=== PATIENT | male | born 1945 | race Caucasian/White ===

== ENCOUNTER 2022-06-26 06:23 | Day surgery (SDC) | payer OTHER, SELFPAY ==
[2022-06-26 06:42] VITALS: BP 123/79; PULSE 66; RESP 16; TEMP 36.2
[2022-06-26 06:43] VITALS: BMI 24.3
[2022-06-26 06:44] VITALS: BP 123/79; PULSE 66; RESP 16; TEMP 36.2; O2SAT 98
[2022-06-26] MEDS: ETHYL CHLORIDE 1 APPLICATION 1 APPLIC TOPICAL (07:00)
[2022-06-26] MEDS: BUPIVACAINE 0.5% 30 ML INJECTION (07:00)
--- NOTE | 2022-06-26 07:09 | SUR.PREOP ---
SAME DAY SURGERY LOCAL INJECTION SITE VERIFICATION WAS PERFORMED BY SURGEON/PA AND PATIENT PRIOR TO LOCAL ANESTHETIC BEING INJECTED TO OPERATIVE SITE.
[2022-06-26 07:24] VITALS: BP 132/67; PULSE 63; O2SAT 99
[2022-06-26 07:30] VITALS: BP 130/74; PULSE 67; RESP 16; O2SAT 99
[2022-06-26] MEDS: NEOMYCIN/BACITRACIN/POLYMYXIN B 1 APPLIC TOPICAL (07:33)
[2022-06-26 07:35] VITALS: BP 127/75; PULSE 66; RESP 14; O2SAT 99
--- NOTE | 2022-06-26 07:35 | P.ORPRC_ITS ---
Procedure Note Date of procedure: 06/26/22 Procedure: PREOPERATIVE DIAGNOSIS: 1. Left long finger flexor tenosynovitis - trigger finger POSTOPERATIVE DIAGNOSIS: 1. Left long flexor tenosynovitis - trigger finger PROCEDURE: 1. Left long flexor tendon sheath open release (A1 nato) SURGEON: Mickey Kang MD. BRAZING MACHINE SETTER: Fabiola Carpio Pac ANESTHESIA: Local anesthetic 4ml via 50:50 mixture of 1% Lidocaine with epi and 0.5% marcaine plain EBL: 2ml IMPLANTS: None TOURNIQUET: None COMPLICATIONS: None evident INDICATIONS: The patient is a pleasant 76-year-old male who has experienced left long finger catching/triggering for number of months. It has progressively gotten worse. Given the failure of nonoperative management, and how this affects daily life, surgery was recommended. DESCRIPTION OF PROCEDURE: Following a thorough discussion of risks, benefits, and alternatives consent was obtained and the operative digit(s) was marked. The patient was brought to the operating room and placed supine on the operating table. Local anesthesia induction was undertaken in preop holding. No antibiotics were administered as this was planned to be a local case only. Proper time-out was performed identifying proper patient, site, and procedure. The operative extremity was prepped and draped in the appropriate sterile fashion using ChloraPrep. A incision was made on the palmar surface of the hand overlying the MCP joint region of the appropriate digit(s) respecting the palmar creases being cautious not to cross these perpendicularly. Sharp incision through the skin, and blunt dissection through subcutaneous tissue allowing protection of crossing neurologic structures. The A1 nato was visualized directly. It was incised sharply with a 15 blade. It was released completely from its distal to proximal extent under direct visualization. The tendon was inspected and found to be mildly striated consistent with some friction. Otherwise, it was intact. The tendon was removed out of the wound, and further inspected. The patient was asked to manually flex and extend the digits and showed no further catching. The catching which was visualized after tourniquet inflation, was no longer evident with reproduction of a manual fist and relaxation. Closure was performed with 4-O nylon in interrupted fashion. Soft dressings were applied, and the patient was transferred to the recovery room in stable condition. PLAN: 1. Encourage elevation of the operative extremity. 2. Range of motion and icing of the fingers and hand/wrist as tolerated/needed. 3. Ibuprofen/acetaminophen and/or Percocet as needed for pain control. 4. Follow up with PA visit in 12-16 days for wound check and suture removal.
[2022-06-26 07:41] VITALS: BP 130/83; PULSE 65; RESP 16; TEMP 36.3; O2SAT 97
== END 2022-06-26 07:52 | disposition home or self-care (01) ==
PROVIDERS: PCP Family Medicine; Visit Provider Orthopaedic Surgery Sports Medicine
PROC: (CPT 26055; principal; 2022-06-26 07:30)
DX: M65.332 Trigger finger, left middle finger (principal); M65.842 Other synovitis and tenosynovitis, left hand
CPT/HCPCS: 26055; J3490

== ENCOUNTER 2023-07-18 09:45 | Outpatient (RCR) | payer OTHER, SELFPAY ==
--- NOTE | 2023-05-25 16:10 | PT.OPEX ---
[facility] PT [facility] Outpatient Eval Start: 05/25/23 14:03 Freq: Status: Active Protocol: Document 05/25/23 15:42 JUSTIN (Rec: 05/25/23 16:04 JUSTIN [id number]) E-signed By Daniela Monterroso PT Physical Therapy Outpatient Evaluation Insurance Information Recert Due Date 08/22/23 Insurance Name [employer],Other; See Comments Insurance Information/Comments [employer] Medical Diagnosis UNSTEADY GAIT Referring MD DR. WHITMAN Subjective Subjective PATIENT REPORTS UNSTEADINESS ESPECIALLY WHEN BENDING FWD TO CLEAN THE LITTER BOX. HE STATES, I FEEL LIKE I'M JUST GOING TO KEEP ON GOING WHEN IM DOWN THERE FOR A BIT. HE REPORTS FALLING ROUGHLY 10 DAYS AGO WHEN STEPPING BACK AND FALLING BACKWARD. Pain Comments Date of Last Physician Visit 05/21/23 Preferred Name RENU Objective Other/Pertinent Objective BLE MMT: 5/5 BLE ROM: WNL TUSEC 30 SEC STS: 8 MARQUES/56 This score is associated with almost 100% fall risk while the patient at the moment may be requiring assistance in performing certain activities of daily living such as walking. SLS: R 3SEC, L 5 SEC Assessment Assessment/Impression PATIENT IS A 77 YO REFERRED TO PHYSICAL THERAPY BY DR. WHITMAN TO EVAL AND TX UNSTEADINESS OF GAIT; PMHX INCLUDES BUT NOT LIMITED TO B KNEE ARTHROSCOPE (), LBP, H/O LEFT SHOULDER PAIN, DEPRESSION, OCD, LEFT FOOT PAIN, LEFT WRIST PAIN, AND H/O MULTIPLE FALLS; HE DEMONSTRATES INCREASED UNSTEADINESS WHEN CHANGE DIRECTIONS, HEAD MVMTS, WALKING BKWDS, AND BENDING FWD TOWARD THE GROUND. HIS FUNCTIONAL SCORES INDICATE AN IMMINENT RISK FOR FALLS AND WOULD BENEFIT FROM SKILLED PHYSICAL THERAPY FOCUSSED ON BOTH SOMATOSENSORY AND VESTIBULAR BALANCE SYSTEMS. PATIENT PROVIDED AN INITIAL HEP THAT INCLUDES VARIOUS GAZE STABILIZATION CHALLENGES (1) VOR 1 NO, (2) HORIZONTAL CANCELATION, (3) [place] CANCELATION. HE PERFORMED EA WITH ADJUSTMENT MADE D/T HIS CURRENT CAPABILITIES. HE IS INSTRUCTED TO PERFORM DAILY AND WILL PROGRESS NEXT VISIT. PATIENT VERBALIZED UNDERSTANDING OF ALL SKILLED INSTRUCTION AND IN AGREEMENT WITH POC AND FREQ. Primary Functional Limitations BALANCE GAIT ON UNEVEN SURFACES CHANGE IN DIRECTION Plan of Care Rehabilitation Potential Good Physical Therapy Goals 1. IMPROVE CORE/HIP/GLUT STRENGTH AND TRUNK STABILITY OVER THE NEXT 6-8 WEEKS FOR IMPROVED FUNCTIONAL MOBILITY, BALANCE, AND GAIT TO DECREASE RISK FOR FALLS. 2. IMPROVE MARQUES SCORE FROM 33/ 56 TO 45/56 AND THE 30 SEC STS FROM 8 TO 12 OVER THE NEXT 6- 8 WEEKS FOR IMPROVED SAFETY WITH DAILY ACTIVITIES AND DECREASED RISK OF FALLS. 3. 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 4. PATIENT WILL BE INDEPENDENT WITH HER HEP WITH IN 8-12 WEEKS FOR PROGRESSION TOWARD THE ABOVEMENTIONED GOALS, CONTINUED SELF IMPROVEMENT WITH STRENGTH, COORDINATION, GAIT, AND SAFETY AWARENESS. Coordination/Communication With Referral Source Treatment Plan/Direct Interventions Gait Training,Neuromuscular Re -ed,Therapeutic Activities, Therapeutic Exercises Frequency/Duration 1VISIT/WK FOR 8 -12 WEEKS Patient Will Be Discharged From Therapy Completion of LTG(s), Independently Progressing Evaluation Billing Complexity Moderate Certification Information Initial Certification Date 05/25/23 Ending Certification Date 08/22/23 Provider Signature Shows Agreement With POC & Medical Necessity Physician Signature & Date Requested Please Sign/Date Here Physician Comment/Change : Physician NPI Number #
== END 2023-08-09 16:39 | disposition home or self-care (01) ==
PROVIDERS: PCP Family Medicine; Visit Provider Family Medicine
DX: R26.9 Unspecified abnormalities of gait and mobility (principal); Z51.89 Encounter for other specified aftercare
CPT/HCPCS: 97112; 97162; 97530

== ENCOUNTER 2024-01-13 16:11 | Outpatient (CLI) | payer OTHER, SELFPAY ==
--- OUTSIDE RECORDS SUMMARY | 2024-01-18 01:23 | XMS_ITS | Continuity of Care Document ---
Author Organization [facility], [facility] Address [address] 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 Name Role Phone DOMINICK WHITMAN Primary Care [...] Details Recorded Time 4 Bladder Scan completed [facility] 01/08/2024 12:21:45 4 [place] - UroCuff completed [facility] 01/08/2024 12:23:07 4 Bladder Scan completed Rm Mas MD [address] [place] [address],[address], [address], [facility] 01/02/2024 12:04:36 4 Blood Draw/ORACLE ARCHITECT/PSA RESULTS completed Rm Mas MD [address] [place] [address],[facility] [address], [address], [facility] 01/02/2024 12:04:41 4 ORACLE ARCHITECT/blood draw completed Rm Mas MD [address] [place] [address],[address], [address], [facility] 06/20/2023 10:46:28 4 Bladder Scan completed Rm Mas MD [address] [place] [address],[address], [place], [address], [facility] 06/20/2023 10:50:58 3 Bladder Scan completed [facility] 07/10/2022 11:35:14 2 Bladder Scan completed [facility] 03/20/2022 10:16:14 2 ORACLE ARCHITECT/blood draw completed Rm Mas MD [address] [place] [address],[address], [place], [address], [facility] 12/19/2021 16:59:44 2 Bladder Scan completed Rm Mas MD [address] [place] [address],[address] [place] [address], [phone], [facility] 12/19/2021 16:59:39 7 Colonoscopy completed Rm Mas MD [address] [place] [address],[address] [place] [address], [phone], [facility] 12/19/2021 16:58:49 procedure on nose completed Rm Mas MD [address] [place] [address],[address], [place], [address], [facility] 12/19/2021 16:58:21 Hernia Repair completed Rm Mas MD [address] [place] [address],[address], [place], [address], [facility] 12/19/2021 16:58:30 Imaging Results None recorded. Procedure Notes None recorded. Medical Equipment None Reported. Allergies Allergen ID Allergen Name Allergen Category Reaction Reaction Severity Criticality Documentation Date Start Date Code Code System Note Provider Name and Address Organization Details Recorded Time [id number] Substance with sulfonami de structure and antibacte rial mechanism of action (substanc e) medicatio n Not available Not available Not available 12/19/2021 85274 8003 SNOMED Rm Mas MD [address] [place] [address],[address] [place] [address], [phone], [facility] 16:55:44 [id number] amoxicill in medicatio n Not available Not available Not available 12/19/2021 723 RxNorm Rm Mas MD [address] [place] [address],[address] [place] [address], [place], [address], [facility] 2 16:55:49 856790 erythromy vanda medicatio n Not available Not available Not available 12/19/2021 4053 RxNorm Rm Mas MD [address] [place] [address],[facility] [address], [place], [address], [facility] 2 16:55:54 846215 house dust allergeni c extract environme nt,medica tion Not available Not available Not available 12/19/2021 26115 9 RxNorm Rm Mas MD [address] [place] [address] E [facility], [place], [address], [facility] 2 16:56:12 590113 house dust mite environme nt Not available Not available Not available 12/19/2021 Rm Mas MD [address] [place] [address] E [facility], [place], [address], [facility] 2 16:56:17 967044 Flomax medicatio n Not available Not available Not available 12/19/2021 86563 3 RxNorm Rm Mas MD [address] [place] [address] [place] [address], [address], [facility] 2 16:56:23 069359 peanut allergeni c extract food,medi cation Not available Not available Not available 12/19/2021 56613 8 RxNorm Rm Mas MD [address] [place] [address] [place] [address], [address], [facility] 2 16:56:31 Medications Name Sig [...] Smoking Status Former Smoker Rm Mas MD [address] [facility],[address], [place], [address], [facility] 12/19/2021 16:58:04 What Is Your [...] adjuvanted, trivalent, PF 04/25/[address] [facility] 04/04/2023 08:55:35 Influenza, adjuvanted, trivalent, PF 01/04/[address] [facility] 04/04/2023 08:55:35 zoster recombinant 12/19/[address] [facility] 04/04/2023 08:55:35 zoster recombinant 03/11/2020 completed Kortney [facility] lar null, [facility] 04/04/2023 08:55:35 Influenza, adjuvanted, quadrivalent, PF 02/05/2020 completed Kortney Allar null, [facility] 04/04/2023 08:55:35 Influenza, adjuvanted, quadrivalent, PF 03/15/2021 completed Kortney Allar null, [facility] 04/04/2023 08:55:35 COVID-19, mRNA, LNP-S, PF, 100 mcg/0.5mL dose or 50 mcg/0.25mL dose 11/29/2021 completed Kortney Allar null, [facility] 04/04/2023 08:55:35 COVID-19, mRNA, LNP-S, PF, 30 mcg/0.3 mL dose 05/18/2020 completed Kortney Allar null, [facility] 04/04/2023 08:55:35 COVID-19, mRNA, LNP-S, PF, 30 mcg/0.3 mL dose 06/08/2020 completed Kortney Allar null, [facility] 04/04/2023 08:55:35 COVID-19, mRNA, LNP-S, PF, 30 mcg/0.3 mL dose 03/23/2021 completed Kortney Allar null, [facility] 04/04/2023 08:55:35 Tdap 01/11/2011 completed Kortney Allar null, [facility] 04/04/2023 08:55:35 Tdap 03/15/2021 completed Kortney Allar null, [facility] 04/04/2023 08:55:35 zoster live 03/03/2015 completed Kortney Allar null, [facility] 04/04/2023 08:55:35 Influenza, high-dose, trivalent, PF 12/24/2013 completed Kortney Allar null, [facility] 04/04/2023 08:55:35 Influenza, high-dose, trivalent, PF 01/12/2015 completed Kortney Allar null, [facility] 04/04/2023 08:55:35 Influenza, high-dose, trivalent, PF 01/18/2016 completed Kortney Allar null, [facility] 04/04/2023 08:55:35 Influenza, split virus, trivalent, preservative 01/07/2013 completed Kortney Allar null, [facility] 04/04/2023 08:55:35 Influenza, split virus, trivalent, preservative 01/11/2011 completed Kortney Allar null, [facility] 04/04/2023 08:55:35 Influenza, split virus, trivalent, preservative 01/12/2009 completed Kortney Allar null, [facility] 04/04/2023 08:55:35 Influenza, split virus, trivalent, preservative 03/23/2012 completed Kortney Allar null, [facility] 04/04/2023 08:55:35 Td (adult), 5 Lf tetanus toxoid, preservative free, adsorbed 02/02/2006 completed Kortney Allar null, [facility] 04/04/2023 08:55:35 Influenza, split virus, quadrivalent, PF 02/18/2019 completed Kortney Allar null, [facility] 04/04/2023 08:55:35 Hep A-Hep B 10/03/2018 completed Kortney Allar null, [facility] 04/04/2023 08:55:35 Hep A-Hep B 03/03/2021 completed Kortney Allar null, [facility] 04/04/2023 08:55:35 Hep A-Hep B 04/02/2020 completed Kortney Allar null, [facility] 04/04/2023 08:55:35 Influenza, adjuvanted, quadrivalent, PF 03/13/2022 completed Kortney Allar null, [facility] 04/04/2023 08:55:42 Pneumococcal conjugate PCV20, polysaccharide NEC407 conjugate, adjuvant, PF 05/18/2022 completed Kortney Allar null, [facility] 04/04/2023 08:55:51 Influenza, high-dose, quadrivalent, PF 03/22/2023 completed Rm Mas MD [address] [place] [address],[address], [address], [facility] 01/02/2024 12:02:22 RSV, bivalent, protein subunit RSVpreF, diluent reconstituted, 0.5 mL, PF 05/23/2023 completed Rm Mas MD [address] [place] [address],[place] [address], [place], [address], [facility] 01/02/2024 12:02:22 Pneumococcal conjugate PCV 13 07/23/2014 completed Rm Mas MD [address] [place] [address],[address], [address], [facility] 12/19/2021 16:55:31 pneumococcal polysaccharide PPV23 12/17/2012 completed Rm Mas MD [address] [place] [address],[address], [address], [facility] 12/19/2021 16:55:31 Past Encounters Encounter ID Performer Location Encounter Start Date Encounter Closed Date Diagnosis/Indication Diagnosis SNOMED-CT Code Diagnosis ICD10 Code [id number] Rm Mas MD [facility] [address] [place] [address] 01/02/2024 11:43:10 01/07/2024 12:28:43 Lower urinary tract symptoms due to benign prostatic hypertrophy 8643507402 9101 N40.1 Erectile dysfunction 860 285192 F52.21 [id number] Luis fuentes [facility] [address] [place] [id number] 01/08/2024 11:53:44 01/09/2024 12:20:42 Lower urinary tract symptoms due to benign prostatic hypertrophy [id number] 9101 N40.1 Health Concerns Section Related Observation LastModified by Organization Detai ls LastModified Time None Recorded Concern Status LastModified by Organization Details LastModified Time None Recorded Payers Encounter Date Sequence Insurance Name Policy Number Policy Henry Covered Member ID Henry Member ID Guarantor Name 01/08/2024 1 [employer] (MEDICARE REPLACEMENT/A DVANTAGE - PPO) Nick Moreira [id number] Nick Moreira
--- OUTSIDE RECORDS SUMMARY | 2024-01-18 01:23 | XMS_ITS | Data Portability ---
Author Organization [facility], [facility] Address [address] 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 Plan of Treatment Reminders Order Date Submit Date Provider Last Modified By Organization Details Last Modified Time Details Appointments ESTABLISH ED 10 2023 10:30A M Not available Not available Not available Lab PSA, total, serum or plasma 2021 022 [email or web address] 0 [facility], [address], [place], [address], 03/27/2022 09:55:18 PSA, total, serum or plasma 2022 023 0 [facility], [address] [facility], [place], [address], 07/18/2022 09:02:20 PSA, serum or plasma 2023 024 [facility], [address], [place], [address], 06/20/2023 10:46:57 PSA, serum or plasma 2023 024 [facility], [address], [place], [address], 01/02/2024 12:20:03 Referral None recorded. Procedures electromy ography studies (EMG) of anal or urethral sphincter , other than needle (PROC) 2023 024 rebbert Not available 01/15/2024 08:28:45 complex cystometr ogram with voiding pressure studies (PROC) 2023 024 rebbert Not available 01/15/2024 08:28:45 complex uroflowme try (PROC) 2023 024 rebbert Not available 01/15/2024 08:28:45 Surgeries None recorded. Imaging None recorded. Medication Orders silodosin 8 mg capsule 2021 022 [facility], [address], [place], [address], 03/20/2022 10:54:34 Patient TargetsNo targets recorded. Patient InstructionsNo instructions recorded. Reason for Referral None Reported. Results Created Date Observation Date Name Description Value Unit Range Abnormal Flag Note LastModifiedBy Organization Detail LastModifiedTime 06/20/1906/20/2023 PSA, serum or plasm a PSA 1.0 ng/mL 0-4.0 Not Available [facility] [address], [place], [address], 06/20/2023 10:46:37 01/02/2001/02/2024 PSA, serum or plasm a PSA 0.84ng /mL 0-4.0 NG/mL Not Available [facility] [address], [place], [address], 01/01/2024 11:38:42 03/27/2003/20/2022 bladd er scan (PROC ) No observ ation record ed. BARCODE Not Available 2021 09:11:46 07/14/19 23 07/10/2022 bladd er scan (PROC ) No observ ation record ed. BARCODE Not Available 2022 09:06:49 Result Notes None recorded. Procedures Surgical History Date Name Laterality Status Provider Name and Address Organization Details Recorded Time 4 Bladder Scan completed Luis Sloan-Shweta lucianoo [facility] 01/08/2024 12:21:[address] [place] - UroCuff completed Luis Sloan-Shweta ero [facility] 01/08/2024 12:23:07 4 Bladder Scan completed Rm Mas MD [address] [place] [address],[address], [place], [address], [facility] 01/02/2024 12:04:36 4 Blood Draw/INTERIOR PAINTER/PSA RESULTS completed Rm Mas MD [address] [place] [address],[address], [place], [address], [facility] 01/02/2024 12:04:41 4 INTERIOR PAINTER/blood draw completed Rm Mas MD [address] [place] [address],[address], [place], [address], [facility] 06/20/2023 10:46:28 4 Bladder Scan completed Rm Mas MD [address] [place] [address],[address], [place], [address], [facility] 06/20/2023 10:50:58 3 Bladder Scan completed Charlie Jang [facility] 07/10/2022 11:35:14 2 Bladder Scan completed Charlie Jang [facility] 03/20/2022 10:16:14 2 INTERIOR PAINTER/blood draw completed Rm Mas MD [address] [place] [address],[address], [place], [address], [facility] 12/19/2021 16:59:44 2 Bladder Scan completed Rm Mas MD [address] [place] [address],[address], [place], [address], [facility] 12/19/2021 16:59:39 7 Colonoscopy completed Rm Mas MD [address] [place] [address],[address], [place], [address], [facility] 12/19/2021 16:58:49 procedure on nose completed Rm Mas MD [address] [place] [address],[address], [place], [address], [facility] 12/19/2021 16:58:21 Hernia Repair completed Rm Mas MD [address] [place] [address],[address], [place], [address], [facility] 12/19/2021 16:58:30 Imaging Results Imaging Date [...] Name and Address Organization Details Recorded Time [id number] Substance with sulfonami de structure and antibacte rial mechanism of action (substanc e) medicatio n Not available Not available Not available 12/19/2021 44059 8003 SNOMED Rm Mas MD [address] [place] [address],[address], [place], [address], [facility] 2 16:55:44 983337 amoxicill in medicatio n Not available Not available Not available 12/19/2021 723 RxNorm Rm Mas MD [address] [place] [address],[address], [place], [address], [facility] 2 16:55:49 386339 erythromy vanda medicatio n Not available Not available Not available 12/19/2021 4053 RxNorm Rm Mas MD [address] [place] [address],[address], [place], [address], [facility] 2 16:55:54 018595 house dust allergeni c extract environme nt,medica tion Not available Not available Not available 12/19/2021 69186 9 RxNorm Rm Mas MD [address] [place] [address],[address], [place], [address], [facility] 2 16:56:12 931677 house dust mite environme nt Not available Not available Not available 12/19/2021 Rm Mas MD [address] [place] [address],[address], [place], [address], [facility] 2 16:56:17 351901 Flomax medicatio n Not available Not available Not available 12/19/2021 41012 3 RxNorandi Mas MD [address] [place] [address], [address], [facility] 2 16:56:23 231112 peanut allergeni c extract food,medi cation Not available Not available Not available 12/19/2021 25282 8 RxFrederick Mas MD [address] [place] [address], [address], [facility] 2 16:56:31 Medications Name Sig Start [...] Updated DateTime 03/20/2022 182.88 cm 24.1 kg/m2 55148.44 g Charlie Jang [facility] 03/20/2022 10:13:13 Date Recorded Body height Body mass index (BMI) Body weight Provider Name and Address Organization Details Last Updated DateTime 07/10/2022 182.88 cm 24.1 kg/m2 43546.44 g Charlie Jang [facility] 07/10/2022 11:29:55 Date Recorded Body height Body mass index (BMI) Body weight Provider Name and Address Organization Details Last Updated DateTime 01/02/2024 182.88 cm 24.4 kg/m2 43430.63 g Rm Mas MD [address] [place] [address],[address], [place], [address], [facility] 01/02/2024 12:02:16 Social History Question Answer Notes LastModified by Organizat ion Details LastModified Time Tobacco Smoking Status Former Smoker Rm Mas MD [address] [facility],[address], [place], [address], [facility] 12/19/2021 16:58:04 What Is Your Level [...] trivalent, PF 04/25/2017 completed Kortney Neves null, [facility] 04/04/2023 08:55:35 Influenza, adjuvanted, trivalent, PF 01/04/2018 completed Kortney Neves null, [facility] 04/04/2023 08:55:35 zoster recombinant 12/19/2019 completed Kortney Al lar null, [facility] 04/04/2023 08:55:35 zoster recombinant 03/11/2020 completed Kortney Al lar null, [facility] 04/04/2023 08:55:35 Influenza, adjuvanted, quadrivalent, PF 02/05/2020 completed Kortney Allar null, [facility] 04/04/2023 08:55:35 Influenza, adjuvanted, quadrivalent, PF 03/15/2021 completed Kortney Allar null, [facility] 04/04/2023 08:55:35 COVID-19, mRNA, LNP-S, PF, 100 mcg/0.5mL dose or 50 mcg/0.25mL dose 11/29/2021 completed Kortney Allar null, [facility] 04/04/2023 08:55:35 COVID-19, mRNA, LNP-S, PF, 30 mcg/0.3 mL dose 05/18/2020 completed Kortney Allar null, [facility] 04/04/2023 08:55:35 COVID-19, mRNA, LNP-S, PF, 30 mcg/0.3 mL dose 06/08/2020 completed Kortney Allar null, [facility] 04/04/2023 08:55:35 COVID-19, mRNA, LNP-S, PF, 30 mcg/0.3 mL dose 03/23/2021 completed Kortney Allar null, [facility] 04/04/2023 08:55:35 Tdap 01/11/2011 completed Kortney Allar null, [facility] 04/04/2023 08:55:35 Tdap 03/15/2021 completed Kortney Allar null, [facility] 04/04/2023 08:55:35 zoster live 03/03/2015 completed Kortney Allar null, [facility] 04/04/2023 08:55:35 Influenza, high-dose, trivalent, PF 12/24/2013 completed Kortney Allar null, [facility] 04/04/2023 08:55:35 Influenza, high-dose, trivalent, PF 01/12/2015 completed Kortney Allar null, [facility] 04/04/2023 08:55:35 Influenza, high-dose, trivalent, PF 01/18/2016 completed Kortney Allar null, [facility] 04/04/2023 08:55:35 Influenza, split virus, trivalent, preservative 01/07/2013 completed Kortney Allar null, [facility] 04/04/2023 08:55:35 Influenza, split virus, trivalent, preservative 01/11/2011 completed Kortney Allar null, [facility] 04/04/2023 08:55:35 Influenza, split virus, trivalent, preservative 01/12/2009 completed Kortney Allar null, [facility] 04/04/2023 08:55:35 Influenza, split virus, trivalent, preservative 03/23/2012 completed Kortney Allar null, [facility] 04/04/2023 08:55:35 Td (adult), 5 Lf tetanus toxoid, preservative free, adsorbed 02/02/2006 completed Kortney Allar null, [facility] 04/04/2023 08:55:35 Influenza, split virus, quadrivalent, PF 02/18/2019 completed Kortney Allar null, [facility] 04/04/2023 08:55:35 Hep A-Hep B 10/03/2018 completed Kortney Allar null, [facility] 04/04/2023 08:55:35 Hep A-Hep B 03/03/2021 completed Kortney Allar null, [facility] 04/04/2023 08:55:35 Hep A-Hep B 04/02/2020 completed Kortney Allar null, [facility] 04/04/2023 08:55:35 Influenza, adjuvanted, quadrivalent, PF 03/13/2022 completed Kortney Allar null, [facility] 04/04/2023 08:55:42 Pneumococcal conjugate PCV20, polysaccharide [id number] conjugate, adjuvant, PF 05/18/2022 completed Kortney Allar null, [facility] 04/04/2023 08:55:51 Influenza, high-dose, quadrivalent, PF 03/22/2023 completed Rm Mas MD [address] [facility],[address] [facility], [place], [address], [facility] 01/02/2024 12:02:22 RSV, bivalent, protein subunit RSVpreF, diluent reconstituted, 0.5 mL, PF 05/23/2023 completed Rm Mas MD [address] [facility],[address], [place], [address], [facility] 01/02/2024 12:02:22 Pneumococcal conjugate PCV 13 07/23/2014 completed Rm Mas MD [address] [facility],[address], [place], [address], [facility] 12/19/2021 16:55:31 pneumococcal polysaccharide PPV23 12/17/2012 completed Rm Mas MD [address] [place] [address],[address], [place], [address], [facility] 12/19/2021 16:55:31 Past Encounters Encounter ID Performer Location Encounter Start Date Encounter Closed Date Diagnosis/Indication Diagnosis SNOMED-CT Code Diagnosis ICD10 Code [id number] MD INGA Gómez_Ana María [address] [place] [address] 12/19/2021 16:17:42 12/21/2021 15:53:54 Lower urinary tract symptoms due to benign prostatic hypertrophy 4808665719 9101 N40.1 Erectile dysfunction 860 166366 F52.21 [id number] MD INGA Gómez_Ana María [address] [place] [address] 03/20/2022 09:57:48 03/22/2022 09:47:12 Lower urinary tract symptoms due to benign prostatic hypertrophy 6326439153 9101 N40.1 Erectile dysfunction 860 177609 F52.21 [id number] MD INGA Gómez_Ana María [address] [place] [address] 07/10/2022 11:08:57 07/13/2022 11:38:19 Lower urinary tract symptoms due to benign prostatic hypertrophy 7092424167 9101 N40.1 Erectile dysfunction 860 130997 F52.21 [id number] MD Zacarias Gómez [address] [place] [address] 06/20/2023 10:11:21 06/20/2023 12:20:35 Lower urinary tract symptoms due to benign prostatic hypertrophy 7428273228 9101 N40.1 Erectile dysfunction 860 300523 F52.21 [id number] Rm Mas MD [facility] [address] [place] [address] 01/02/2024 11:43:10 01/07/2024 12:28:43 Lower urinary tract symptoms due to benign prostatic hypertrophy 4960675807 9101 N40.1 Erectile dysfunction 860 514187 F52.21 [id number] Luis Skeltonrigal-Jazmín alfredo [facility] [address] [place], [place] [address] 01/08/2024 11:53:44 01/09/2024 12:20:42 Lower urinary tract symptoms due to benign prostatic hypertrophy 0871109753 9101 N40.1 Health Concerns Section Related Observation LastModified by Organization Detai ls LastModified Time None Recorded Concern Status LastModified by Organization Details LastModified Time None Recorded Advance Directives Directive None Recorded Payers Encounter Date Sequence Insurance Name Policy Number Policy Henry Covered Member ID Henry Member ID Guarantor Name 03/20/2022 1 [employer] (MEDICARE REPLACEMENT/A DVANTAGE - PPO) Nick Moreira [id number] Nick Moreira 07/10/2022 1 [employer] (MEDICARE REPLACEMENT/A DVANTAGE - PPO) Nick Moreira [id number] Nick Moreira 06/20/2023 1 [employer] (MEDICARE REPLACEMENT/A DVANTAGE - PPO) Nick Moreira [id number] Nick Moreira 01/02/2024 1 [employer] (MEDICARE REPLACEMENT/A DVANTAGE - PPO) Nick Moreira [id number] Nick Moreira 01/08/2024 1 [employer] (MEDICARE REPLACEMENT/A DVANTAGE - PPO) Nick Moreira [id number] Nick Moreira Notes Date Note Type Note [...] or renal masses Rm Mas MD [address] [facility],[address], [place], [address], [facility] 03/20/2022 13:59:29 07/10/2022 text/html HPI Notes: [...] stones or renal masses Rm Mas MD [address] [facility],[address], [place], [address], [place] [facility] 07/10/2022 13:35:45 06/20/2023 text/html HPI Notes: [...] or renal masses Rm Mas MD [address] [facility],[address], [place], [address], [facility] 06/20/2023 11:23:55 01/02/2024 text/html HPI Notes: [...] stones or renal masses Rm Mas MD [address] [facility],[address], [place], [address], [place] [facility] 01/03/2024 22:33:39
--- OUTSIDE RECORDS SUMMARY | 2024-01-18 01:23 | XMS_ITS | Clinical Summary ---
Author Organization [facility] Address [place], [place] [address] Care Team Providers Care Aeronautical Engineering Technologist Name Role Phone Jarad Starr MD Primary [...] (ASTELIN) nasal sprayIndications :Rhinitis, chronic Inhale 1 [place] into affected nostril(s) two times daily. 90 [...] Encounters Date Type Department Care Team Description 01/13/2024 Orders Only [facility] Scanner 1 scan: (1-Ord) [facility], HEAD/BRAIN WO, 01/13/2024 01/03/2024 1:45 PM CDT Orders Only [facility] [address] [place] [address] Lab[facility] 01/03/2024 Anticoagulation (warfarin) [facility] [address] [place] [address] 1, [facility] 01/03/2024 Travel 01/03/2024 Telephone [facility] [address] [place] [address] Irene Coulter PA 01/02/2024 Refill [facility] [address] [place] [address] Jarad Starr MD Refill Request (Warfarin) 01/01/2024 7:30 AM CDT Ancillary Procedure [facility] [address] [place] [address] 01/01/2024 Travel 12/29/2023 Anticoagulation (warfarin) [facility] [address] [place] [address] 1, [facility]tico[facility] 12/28/2023 1:30 PM CDT Orders Only [address] [place] [address] Lab, [facility] 12/28/2023 Travel 12/25/2023 1:00 PM CDT Office Visit [facility] [address] [place] [address] Irene Coulter PA Consult (Rhinitis) 12/25/2023 Travel 11/29/2023 10:30 AM CDT Orders Only [facility] [address] [place] [address] Lab, [facility] 11/29/2023 Anticoagulation (warfarin) [facility] [address] [place] [address] 1, [facility] Anticoagulation 11/29/2023 Telephone [facility] [address] [place] [address] Jarad Starr MD Anticoagulation (Yearly AC order renewal) 11/29/2023 Travel 10/23/2023 2:10 PM CDT Orders Only [facility] [address] [place] [address] Lab, [facility] 10/23/2023 Anticoagulation (warfarin) [facility] [address] [place] [address] 1, [facility] 10/23/2023 Travel 10/22/2023 Telephone [facility] [address] [place] [address] Mikala Rodríguez PA returning call (Pt stated he is returning a call from Rosa (with Provider's team) today) 10/21/2023 Refill [facility] [address] [place] [address] Jarad Starr MD Refill Request (Warfarin) from Last 3 Months Immunizations Name Administration [...] Sex Assigned at Male 06/08/2020 9:59 AM DEGREE CLERK Gender Identity Male 06/08/2020 9:59 AM DEGREE CLERK Sexual Orientation Straight 06/08/2020 9: 59 AM DEGREE CLERK Obstetrics History Last Filed Vital Signs Vital [...] Care Team (Late st Contact Info) Description 01/24/2024 8:55 AM CDT Office Visit [facility] [address] [place] [address] Jarad Starr MD [address] [place] [address] 01/28/2024 7:30 AM CDT Office Visit [facility] [address] [place] [address] Camille Rodríguez NP [address] [place] [address] 01/31/2024 9:30 AM CDT Orders Only [facility] [address] [place] [address] Lab, [facility] Maintenance Due Date Last Done Comments RSV vaccine for adults or (1 - 1-dose 75+ series) 11/25/2022 COVID-19 vaccine series ( season) 2023 11/29/2021, 03/23/2021, 06/08/2020, Additional history [...] Procedure Name Priority Date/Time Associated Diagnosis Comments SCAN-CT INTERPRETATION 12:00 AM CDT INR,POCT Routine 01/03/2024 1:51 PM CDT Paroxysmal [...] Recently Relevant to Health Maintenance Results * SCAN-CT INTERPRETATION (01/13/2024 12:00 AM CDT) Anatomical Region Laterality Modality Other Scanner OTHER * (ABNORMAL) INR,POCT (01/03/2024 1:51 PM CDT) INR 2.2(H) <1.3 01/03/2024 1:51 PM CDT [facility] Blood BLOOD SPECIMEN / Unknown Capillary / Unknown 01/03/2024 1:51 PM CDT 01/03/2024 1:51 PM CDT Narrative [facility] - 01/03/2024 1:51 PM CDT ?Therapeutic Range 2.0-3.0 for most anticoagulated patients 2.5-3.5 or 4.0 for high risk patients Jarad Starr MD LABORATORY Performing Organization Address City/State/[facility] Co de Phone Number [facility] [address] [place] [address], * CT HEAD SINUS LANDMARX WO (01/01/2024 [...] For Patients: As a result of the Cures Act, medical imagingexams and procedure reports [...] @ 01/01/2024 3:16:36 PM (Electronically Signed) Irene Coulter PA CT * (ABNORMAL) PROTIME-INR (12/28/2023 1:22 PM CDT) Only the most recent of3 resultswithin the time period is included. INR 2.4(H) <1.3 12/28/2023 1:33 PM CDT [facility] PROTIME 26.3(H) 10.3 - 12.3 sec 12/28/2023 1:33 PM CDT [facility] Blood BLOOD SPECIMEN / Unknown Venipuncture / Unknown 12/28/2023 1:22 PM CDT 12/28/2023 1:23 PM CDT Narrative [facility] - 12/28/2023 1:33 PM [...] is on UFH. Jarad Starr MD HEMATOLOGY [facility] [address] [place] [address] * ANTI HCV [01014.2] (01/18/2016 9:33 AM CDT) HEPATITIS C ANTIBODY Non-Reacti ve Non-Reacti ve 01/18/2016 6:57 PM CDT [facility] Blood BLOOD SPECIMEN / Unknown Venipuncture / Unknown 01/18/2016 9:33 AM CDT 01/18/2016 9:33 AM CDT Narrative [facility] - 01/18/2016 6:57 PM CDT Antibodies to HCV not detected; does not exclude the possibility of exposure to HCV. Jarad Starr MD SEND OUTS [facility] [address] [place] [address], [place] from Last 3 Months or Most Recently Relevant to Health Maintenance Advance Directives Documents on File Type Date Recorded Patient Prosthetic Technician Expl anation Healthcare Directive 05/28/2017 7:30 AM 2-1 1-13 Healthcare Directive 06/14/2012 * Full Code (Latest Code Status on File) Date Activated Date Inactivated Comments 03/21/2013 9:29 AM 03/21/2013 5:10 PM Care Teams Aeronautical Engineering Technologist Relationship Specialty Start Date End Date Jarad Starr MD [address] [place] [address] PCP - General Family Practice 12/17/12
--- OUTSIDE RECORDS SUMMARY | 2024-01-18 01:24 | XMS_ITS | Continuity of Care Document ---
Author Organization [facility] Address [address] [place] [address] Care Team Providers Care Painting Instructor Name Role Phone ANTONETTE DOMINICK Primary Care Provider Assessment No assessment recorded. Plan of Treatment Reminders Order Date Submit Date Provider Last Modified By Organization Details Last Modified Time Details Appointments ESTABLISH ED 10 2023 10:30A M Not available Not available Not available Lab PSA, serum or plasma 2023 024 [facility], [address] [place], [address], 01/02/2024 12:20:03 Referral None recorded. Procedures electromy [...] Abnormal Flag Note LastModifiedBy Organization Detail LastModifiedTime 01/02/2001/02/2024 PSA, serum or plasm a PSA 0.84ng /mL 0-4.0 NG/mL Not Available [facility] [address], [place], [address], 01/01/2024 11:38:42 Result Notes None recorded. Procedures Surgical History Date Name Laterality Status Provider Name and Address Organization Details Recorded Time 4 Bladder Scan completed [facility] 01/08/2024 12:21:45 4 [place] [facility] 01/08/2024 12:23:07 4 Bladder Scan completed Rm Mas MD [address] [place] [address],[address], [place], [address], [facility] 01/02/2024 12:04:36 4 Blood Draw/TRAP OPERATOR/PSA RESULTS completed Rm Mas MD [address] [place] [address],[address], [place], [address], [facility] 01/02/2024 12:04:41 4 TRAP OPERATOR/blood draw completed Rm Mas MD [address] [place] [address],[address], [place], [address], [facility] 06/20/2023 10:46:28 4 Bladder Scan completed Rm Mas MD [address] [place] [address],[address], [place], [address], [facility] 06/20/2023 10:50:58 3 [facility] 11:35:14 2 Bladder Scan completed [facility] 03/20/2022 10:16:14 2 TRAP OPERATOR/blood draw completed Rm Mas MD [address] [place] [address],[address], [place], [address], [facility] 12/19/2021 16:59:44 2 Bladder Scan completed Rm Mas MD [address] [place] [address],[address], [place], [address], [facility] 12/19/2021 16:59:39 7 Colonoscopy completed Rm Mas MD [address] [place] [address],[address], [place], [address], [facility] 12/19/2021 16:58:49 procedure on nose completed Rm Mas MD [address] [place] [address],[address], [place], [address], [facility] 12/19/2021 16:58:21 Hernia Repair completed Rm Mas MD [address] [place] [address],[address], [place], [address], [facility] 12/19/2021 16:58:30 Imaging Results None recorded. Procedure Notes None recorded. Medical Equipment None Reported. Allergies Allergen ID Allergen Name Allergen Category Reaction Reaction Severity Criticality Documentation Date Start Date Code Code System Note Provider Name and Address Organization Details Recorded Time 584294 Substance with sulfonami de structure and antibacte rial mechanism of action (substanc e) medicatio n Not available Not available Not available 12/19/2021 74809 8003 SNOMED Rm Mas MD [address] [place] [address],[address] [place], [place] [address], [facility] 2 16:55:44 337751 amoxicill in medicatio n Not available Not available Not available 12/19/2021 723 RxNorm Rm Mas MD [address] [place] [address],[address] [place] [address], [facility] 2 16:55:49 880788 erythromy vanda medicatio n Not available Not available Not available 12/19/2021 4053 RxNorm Rm Mas MD [address] [place] [address],[address] [address], [facility] 2 16:55:54 096912 house dust allergeni c extract environme nt,medica tion Not available Not available Not available 12/19/2021 96432 9 RxNorm Rm Mas MD [address] [place] [address],[address] [address], [facility] 2 16:56:12 413470 house dust mite environme nt Not available Not available Not available 12/19/2021 Rm Mas MD [address] [place] [address],[address], [address], [facility] 2 16:56:17 957051 Flomax medicatio n Not available Not available Not available 12/19/2021 86158 3 RxNorm Rm Mas MD [address] [facility],[address], [address], [facility] 2 16:56:23 125152 peanut allergeni c extract food,medi cation Not available Not available Not available 12/19/2021 44512 8 RxNorm Rm Mas MD [address] [facility],[address], [place], [address], [facility] 2 16:56:31 Medications Name Sig [...] Updated DateTime 01/02/2024 182.88 cm 24.4 kg/m2 75928.63 g Rm Mas MD [address] [place] [address], [address], [facility] 01/02/2024 12:02:16 Social History Question Answer Notes LastModified by Organizat ion Details LastModified Time Tobacco Smoking Status Former Smoker Rm Mas MD [address] [place] [address],[address], [address], [facility] 12/19/2021 16:58:04 What Is Your [...] trivalent, PF 04/25/2017 completed Kortney Allar null, [facility] 04/04/2023 08:55:35 Influenza, adjuvanted, trivalent, PF 01/04/2018 completed Kortney Allar null, [facility] 04/04/2023 08:55:35 zoster recombinant 12/19/2019 completed Kortney Al lar null, [facility] 04/04/2023 08:55:35 zoster recombinant 03/11/2020 completed Kortney Al lar null, [facility] 04/04/2023 08:55:35 Influenza, adjuvanted, quadrivalent, PF 02/05/2020 completed Kortney Allar null, [facility] 04/04/2023 08:55:35 Influenza, adjuvanted, quadrivalent, PF 03/15/2021 completed Kortney Allar null, [facility] 04/04/2023 08:55:35 COVID-19, mRNA, LNP-S, PF, 100 mcg/0.5mL dose or 50 mcg/0.25mL dose 11/29/2021 completed Kortney Allar null, [facility] 04/04/2023 08:55:35 COVID-19, mRNA, LNP-S, PF, 30 mcg/0.3 mL dose 05/18/2020 completed Kortney Allar null, [facility] 04/04/2023 08:55:35 COVID-19, mRNA, LNP-S, PF, 30 mcg/0.3 mL dose 06/08/2020 completed Kortney Allar null, [facility] 04/04/2023 08:55:35 COVID-19, mRNA, LNP-S, PF, 30 mcg/0.3 mL dose 03/23/2021 completed Kortney Allar null, [facility] 04/04/2023 08:55:35 Tdap 01/11/2011 completed Kortney Allar null, [facility] 04/04/2023 08:55:35 Tdap 03/15/2021 completed Kortney Allar null, [facility] 04/04/2023 08:55:35 zoster live 03/03/2015 completed Kortney Allar null, [facility] 04/04/2023 08:55:35 Influenza, high-dose, trivalent, PF 12/24/2013 completed Kortney Allar null, [facility] 04/04/2023 08:55:35 Influenza, high-dose, trivalent, PF 01/12/2015 completed Kortney Allar null, [facility] 04/04/2023 08:55:35 Influenza, high-dose, trivalent, PF 01/18/2016 completed Kortney Allar null, [facility] 04/04/2023 08:55:35 Influenza, split virus, trivalent, preservative 01/07/2013 completed Kortney Allar null, [facility] 04/04/2023 08:55:35 Influenza, split virus, trivalent, preservative 01/11/2011 completed Kortney Allar null, [facility] 04/04/2023 08:55:35 Influenza, split virus, trivalent, preservative 01/12/2009 completed Kortney Allar null, [facility] 04/04/2023 08:55:35 Influenza, split virus, trivalent, preservative 03/23/2012 completed Kortney Allar null, [facility] 04/04/2023 08:55:35 Td (adult), 5 Lf tetanus toxoid, preservative free, adsorbed 02/02/2006 completed Kortney Allar null, [facility] 04/04/2023 08:55:35 Influenza, split virus, quadrivalent, PF 02/18/2019 completed Kortney Allar null, [facility] 04/04/2023 08:55:35 Hep A-Hep B 10/03/2018 completed Kortney Allar null, [facility] 04/04/2023 08:55:35 Hep A-Hep B 03/03/2021 completed Kortney Allar null, [facility] 04/04/2023 08:55:35 Hep A-Hep B 04/02/2020 completed Kortney Allar null, [facility] 04/04/2023 08:55:35 Influenza, adjuvanted, quadrivalent, PF 03/13/2022 completed Kortney Allar null, [facility] 04/04/2023 08:55:42 Pneumococcal conjugate PCV20, polysaccharide [id number] conjugate, adjuvant, PF 05/18/2022 completed Kortney Allar null, [facility] 04/04/2023 08:55:51 Influenza, high-dose, quadrivalent, PF 03/22/2023 completed Rm Mas MD [address] [place] [address],[address], [address], [facility] 01/02/2024 12:02:22 RSV, bivalent, protein subunit RSVpreF, diluent reconstituted, 0.5 mL, PF 05/23/2023 completed Rm Mas MD [address] [place] [address],[address], [address], [facility] 01/02/2024 12:02:22 Pneumococcal conjugate PCV 13 07/23/2014 completed Rm Mas MD [address] [place] [address],[address], [address], [facility] 12/19/2021 16:55:31 pneumococcal polysaccharide PPV23 12/17/2012 completed Rm Mas MD [address] [facility],[address], [place], [address], [facility] 12/19/2021 16:55:31 Past Encounters Encounter ID Performer Location Encounter Start Date Encounter Closed Date Diagnosis/Indication Diagnosis SNOMED-CT Code Diagnosis ICD10 Code [id number] Rm Mas MD [facility] [address] [place] [address] 01/02/2024 11:43:10 01/07/2024 12:28:43 Lower urinary tract symptoms due to benign prostatic hypertrophy 4615371883 9101 N40.1 Erectile dysfunction 860 790512 F52.21 Health Concerns Section Related Observation LastModified by Organization Detai ls LastModified Time None Recorded Concern Status LastModified by Organization Details LastModified Time None Recorded Payers Encounter Date Sequence Insurance Name Policy Number Policy Henry Covered Member ID Henry Member ID Guarantor Name 01/02/2024 1 [employer] (MEDICARE REPLACEMENT/A DVANTAGE - PPO) Nick Moreira [id number] Nick Moreira Notes Date Note Type Note [...] stones or renal masses Rm Mas MD [address] [facility],[address], [place], [address], [place] [facility] 01/03/2024 22:33:39
== END 2024-01-13 16:12 | disposition home or self-care (01) ==
LOC: AMB 01-18 01:21
PROVIDERS: PCP Family Medicine; Visit Provider Family Medicine
DX: S09.90XA Unspecified injury of head, initial encounter (principal); S49.91XA Unspecified injury of right shoulder and upper arm, initial encounter; S79.911A Unspecified injury of right hip, initial encounter; V89.2XXA Person injured in unspecified motor-vehicle accident, traffic, initial encounter; Y92.414 Local residential or business street as the place of occurrence of the external cause; Y93.89 Activity, other specified
CPT/HCPCS: A0425; A0429

== ENCOUNTER 2024-01-13 16:37 | Emergency (ER) | payer OTHER, SELFPAY ==
[2024-01-13 16:48] VITALS: BP 133/77; PULSE 64; O2SAT 99
[2024-01-13 16:49] VITALS: PULSE 68; O2SAT 99
[2024-01-13 16:51] VITALS: BP 142/89; PULSE 60; RESP 16; TEMP 36.4; O2SAT 100; BMI 24.4
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
[2024-01-13 17:00] VITALS: PULSE 64; O2SAT 99
[2024-01-13 17:02] VITALS: BP 121/46; PULSE 68; O2SAT 99
--- NOTE | 2024-01-13 17:05 | CRLHL7_ITS ---
For Patients: As a result of the Century Cures Act, medical imaging exams and procedure reports are released immediately into your electronic medical record. You may view this report before your referring provider. If you have questions, please contact your health care provider. TECHNIQUE: Multiplanar CT examination of the head was performed without the use of intravenous contrast. INDICATION: Trauma. COMPARISON: CT head 06/15/2021. FINDINGS: No loss of williamson-white differentiation to suggest recent territorial infarct. No intracranial hemorrhage, abnormal extra-axial fluid collection, hydrocephalus or midline shift. The ventricles and cerebral sulci are prominent caliber common compatible with mild generalized parenchymal volume loss. There is patchy ill-defined hypoattenuation of the supratentorial white matter diffusely, nonspecific but consistent with chronic microvascular ischemic changes. The basal cisterns are patent. Mild mucosal thickening of the left maxillary sinus. The remaining paranasal sinuses and mastoid air cells are clear. Trace right parietal scalp hematoma. The orbits and calvarium are unremarkable. The cerebellar tonsils are normal position. IMPRESSION: 1. Trace right parietal scalp contusion without underlying acute skull fractures. No intracranial hemorrhage or midline shift. 2. Mild generalized parenchymal volume loss with chronic microvascular ischemic changes. Stable examination. Please note that all CT scans at this facility use dose modulation, iterative reconstruction, and/or weight-based dosing when appropriate to reduce radiation dose to as low as reasonably achievable. Dictated by Jeffrey Rahman MD @ 01/13/2024 5:48:33 PM (Electronically Signed)
[2024-01-13 17:18] VITALS: BP 144/82; PULSE 62; O2SAT 99
--- OUTSIDE RECORDS SUMMARY | 2024-01-13 17:26 | XMS_ITS | Data Portability ---
Author Organization [facility], [facility] Address [address] [place] [address] Care Team Providers Care Enrollment Manager Name Role Phone DOMINICK WHITMAN Primary Care Provider Assessment No assessment recorded. Plan of Treatment Reminders Order Date Submit Date Provider Last Modified By Organization Details Last Modified Time Details Appointments ESTABLISH ED 10 2023 10:30A M Not available Not available Not available Lab PSA, total, serum or plasma 2021 022 [email or web address] 0 [facility], [address], [place], [address], 03/27/2022 09:55:18 PSA, total, serum or plasma 2022 023 [id number] 0 [facility], [address], [place], [address], 07/18/2022 09:02:20 PSA, serum or plasma 2023 024 [facility], [address], [place], [address], 06/20/2023 10:46:57 PSA, serum or plasma 2023 024 [facility], [address], [place], [address], 01/02/2024 12:20:03 Referral None recorded. Procedures electromy ography studies (EMG) of anal or urethral sphincter , other than needle (PROC) 2023 024 rebbert Not available 01/08/2024 10:00:47 complex cystometr ogram with voiding pressure studies (PROC) 2023 024 rebbert Not available 01/08/2024 10:00:47 complex uroflowme try (PROC) 2023 024 rebbert Not available 01/08/2024 10:00:47 Surgeries None recorded. Imaging None recorded. Medication Orders silodosin 8 mg capsule 2021 022 [facility], [address], [place], [address], 03/20/2022 10:54:34 Patient TargetsNo targets recorded. Patient InstructionsNo instructions recorded. Reason for Referral None Reported. Results Created Date Observation Date Name Description Value Unit Range Abnormal Flag Note LastModifiedBy Organization Detail LastModifiedTime 06/20/19 24 06/20/2023 PSA, serum or plasm a PSA 1.0 ng/mL 0-4.0 Not Available [facility] [address], [place], [address], 06/20/2023 10:46:37 01/02/20 24 01/02/2024 PSA, serum or plasm a PSA 0.84ng /mL 0-4.0 NG/mL Not Available [facility] [address], [place], [address], 01/01/2024 11:38:42 03/27/20 22 03/20/2022 bladd er scan (PROC ) No observ ation record ed. BARCODE Not Available 2021 09:11:46 07/14/19 23 07/10/2022 bladd er scan (PROC ) No observ ation record ed. BARCODE Not Available 2022 09:06:49 Result Notes None recorded. Procedures Surgical History Date Name Laterality Status Provider Name and Address Organization Details Recorded Time 4 Bladder Scan completed Luis Sloan-Shweta lucianoo [facility] 01/08/2024 12:21:45 4 [place] - [facility] completed Luis Sloan-Shweta ero [facility] 01/08/2024 12:23:07 4 Bladder Scan completed Rm Mas MD [address] [place] [address],[address], [place], [address], [facility] 01/02/2024 12:04:36 4 Blood Draw/SPECIAL EDUCATION PARAEDUCATOR/PSA RESULTS completed Rm Mas MD [address] [place] [address],[address], [place], [address], [facility] 01/02/2024 12:04:41 4 SPECIAL EDUCATION PARAEDUCATOR/blood draw completed Rm Mas MD [address] [place] [address],[address], [place], [address], [facility] 06/20/2023 10:46:28 4 Bladder Scan completed Rm Mas MD [address] [place] [address],[address], [place], [address], [facility] 06/20/2023 10:50:58 3 Bladder Scan completed Charlie Jang [facility] 07/10/2022 11:35:14 2 Bladder Scan completed Charlie Jang [facility] 03/20/2022 10:16:14 2 SPECIAL EDUCATION PARAEDUCATOR/blood draw completed Rm Mas MD [address] [place] [address],[address], [place], [address], [facility] 12/19/2021 16:59:44 2 Bladder Scan completed Rm Mas MD [address] [place] [address],[address], [place], [address], [facility] 12/19/2021 16:59:39 7 Colonoscopy completed Rm Mas MD [address] [place] [address],[address], [place], [address], [facility] 12/19/2021 16:58:49 procedure on nose completed Rm Mas MD [address] [place] [address],[address], [place], [address], [facility] 12/19/2021 16:58:21 Hernia Repair completed Rm Mas MD [address] [place] [address],[address], [place], [address], [facility] 12/19/2021 16:58:30 Imaging Results Imaging Date Name Status LastModified by Organiz ation Details LastModified Time 03/20/2022 bladder scan (PROC) completed BARCODE Information not available 03/27/2022 09:11:46 07/10/2022 bladder scan (PROC) completed BARCODE Information not available 07/13/2022 09:06:49 Procedure Notes None recorded. Medical Equipment None Reported. Allergies Allergen ID Allergen Name Allergen Category Reaction Reaction Severity Criticality Documentation Date Start Date Code Code System Note Provider Name and Address Organization Details Recorded Time [id number] Substance with sulfonami de structure and antibacte rial mechanism of action (substanc e) medicatio n Not available Not available Not available 12/19/2021 82517 8003 SNOMED Rm Mas MD [address] [place] [address],[address], [place], [address], [facility] 2 16:55:44 689642 amoxicill in medicatio n Not available Not available Not available 12/19/2021 723 RxNorm Rm Mas MD [address] [place] [address],[address], [place], [address], [facility] 2 16:55:49 245830 erythromy vanda medicatio n Not available Not available Not available 12/19/2021 4053 RxNorm Rm Mas MD [address] [place] [address],[address], [place], [address], [facility] 2 16:55:54 115475 house dust allergeni c extract environme nt,medica tion Not available Not available Not available 12/19/2021 36095 9 RxNorm Rm Mas MD [address] [place] [address],[address], [place], [address], [facility] 2 16:56:12 600970 house dust mite environme nt Not available Not available Not available 12/19/2021 Rm Mas MD [address] [place] [address],[address], [place], [address], [facility] 2 16:56:17 603330 Flomax medicatio n Not available Not available Not available 12/19/2021 22749 3 RxNorandi Mas MD [address] [place] [address], [address], [facility] 2 16:56:23 480318 peanut allergeni c extract food,medi cation Not available Not available Not available 12/19/2021 10910 8 RxFrederick Mas MD [address] [place] [address], [address], [facility] 2 16:56:31 Medications Name Sig Start Date Stop Date Status Note LastModified by Organization Details LastModified Time fluoxetine 40 mg capsule TAKE 1 CAPSULE (40 MG) BY MOUTH EVERY MORNING. 12/19 completed Not Available Not Available Not Available doxycycline hyclate 100 mg capsule 01/01 completed Not Available Not Available Not Available sildenafil 50 mg tablet active Not Available Not Available Not Available lisinopril 20 mg tablet active Not Available Not Available Not Available oxycodone-a cetaminophe n 5 mg-325 mg tablet TAKE 1 TABLET BY MOUTH EVERY 4-8 HOURS NEEDED FOR PAIN 07/10 completed Not Available Not Available Not Available terbinafine HCl 250 mg tablet 01/01 completed Not Available Not Available Not Available prednisolon e acetate 1 % eye drops,suspe nsion 03/20 completed Not Available Not Available Not Available doxycycline monohydrate 100 mg capsule 01/01 completed Not Available Not Available Not Available oseltamivir 75 mg capsule 12/19 completed Not Available Not Available Not Available buspirone 10 mg tablet active Not Available Not Available Not Available warfarin 5 mg tablet 1.5 tablets daily active Not Available Not Available No t Available fluoxetine 10 mg capsule 01/01 completed Not Available Not Available Not Available cephalexin 500 mg tablet 01/01 completed Not Available Not Available Not Available mupirocin 2 % topical ointment APPLY TOPICALLY TO THE AFFECTED AREA THREE TIMES DAILY FOR 7 DAYS 01/01 completed Not Available Not Available Not Available azelastine 137 mcg (0.1 %) nasal spray active Not Available Not Available Not Available methylpredn isolone 4 mg tablets in a dose pack FOLLOW PACKAGE DIRECTION S 01/01 completed Not Available Not Available Not Available ipratropium bromide 42 mcg (0.06 %) nasal spray 01/01 completed Not Available Not Available Not Available fluoxetine 20 mg capsule Take 2 tablets daily active Not Available Not Available No t Available finasteride 5 mg tablet TAKE 1 TABLET EVERY DAY active Not Available Not Available No t Available oxycodone 5 mg tablet TAKE 1 TABLET BY MOUTH TWICE DAILY NEEDED 12/19 completed Not Available Not Available Not Available tadalafil 5 mg tablet TAKE 1 TABLET BY MOUTH EVERY DAY 03/20 completed Not Available Not Available Not Available chlorhexidi ne gluconate 0.12 % mouthwash SWISH & SPIT 15ML TWICE DAILY FOR SEVEN DAYS 12/19 completed Not Available Not Available Not Available silodosin 4 mg capsule 01/01 completed Not Available Not Available Not Available silodosin 8 mg capsule TAKE 1 CAPSULE EVERY DAY active Not Available Not Available No t Available ID NOW COVID-19 Test Kit TEST DIRECTED TODAY 01/01 completed Not Available Not Available Not Available Paxlovid 300 mg (150 mg x 2)-100 mg tablets in a dose pack TK 2 NIRMATREL VIR TS AND 1 RITONAVIR T TOGETHER PO BID FOR 5 DAYS TWICE DAILY FOR 5 DAYS 03/20 completed Not Available Not Available Not Available Vitals Date Recorded Body height Body mass index (BMI) Body weight Provider Name and Address Organization Details Last Updated DateTime 03/20/2022 182.88 cm 24.1 kg/m2 12303.44 g Charlie Jang [facility] 03/20/2022 10:13:13 Date Recorded Body height Body mass index (BMI) Body weight Provider Name and Address Organization Details Last Updated DateTime 07/10/2022 182.88 cm 24.1 kg/m2 87924.44 g Charlie Jang [facility] 07/10/2022 11:29:55 Date Recorded Body height Body mass index (BMI) Body weight Provider Name and Address Organization Details Last Updated DateTime 01/02/2024 182.88 cm 24.4 kg/m2 60298.63 g Rm Mas MD [address] [place] [address],[address], [place], [address], [facility] 01/02/2024 12:02:16 Social History Question Answer Notes LastModified by Organizat ion Details LastModified Time Tobacco Smoking Status Former Smoker Rm Mas MD [address], [place], [address], [facility] 12/19/2021 16:58:04 What Is Your Level Of Alcohol Consumption? None Information not available 12/19/2021 What Is Your Level Of Caffeine Consumption? Occasional Information not available 12/19/2021 Are You Currently Employed? No Information not available 03/20/2022 When Did You Quit Smoking? 16+yearssincel astcigarette Information not available 12/19/2021 Recreational Drug Use No Information not available 07/10/2022 What Was The Date Of Your Most Recent Tobacco Screening? 01/02/2024 Information not available 01/02/2024 What Is Your Relationship Status? Information not available 03/20/2022 Do You Use Any Illicit Or Recreational Drugs? No Information not available 12/19/2021 Has Tobacco Cessation Counseling Been Provided? No Information not available 07/10/2022 How Many Years Have You Smoked Tobacco? 10 Information not available 03/20/2022 Do You Or Have You Ever Used Any Other Forms Of Tobacco Or Nicotine? No Information not available 12/19/2021 Sex: Unknown Functional Status None recorded. Mental Status None recorded. Family History Nothing Reported. Medical History Condition Response Other Y High Blood Pressure Y Depression Y Immunizations Vaccine Type Date Status Provider Name and Address Organization Details Recorded Time Influenza, adjuvanted, trivalent, PF 04/25/2017 completed Kortney Neves null, [facility] 04/04/2023 08:55:35 Influenza, adjuvanted, trivalent, PF 01/04/2018 completed Kortney Neves null, [facility] 04/04/2023 08:55:35 zoster recombinant 12/19/2019 completed Kortney Al lar null, [facility] 04/04/2023 08:55:35 zoster recombinant 03/11/2020 completed Kortney Al lar null, [facility] 04/04/2023 08:55:35 Influenza, adjuvanted, quadrivalent, PF 02/05/2020 completed K[facility]ney Allar null, [facility] 04/04/2023 08:55:35 Influenza, adjuvanted, quadrivalent, PF 03/15/2021 completed Kortney Allar null, [facility] 04/04/2023 08:55:35 COVID-19, mRNA, LNP-S, PF, 100 mcg/0.5mL dose or 50 mcg/0.25mL dose 11/29/2021 completed Kortney Allar null, [facility] 04/04/2023 08:55:35 COVID-19, mRNA, LNP-S, PF, 30 mcg/0.3 mL dose 05/18/2020 completed Kortney Allar null, [facility] 04/04/2023 08:55:35 COVID-19, mRNA, LNP-S, PF, 30 mcg/0.3 mL dose 06/08/2020 completed Kortney Allar null, [facility] 04/04/2023 08:55:35 COVID-19, mRNA, LNP-S, PF, 30 mcg/0.3 mL dose 03/23/2021 completed Kortney Allar null, [facility] 04/04/2023 08:55:35 Tdap 01/11/2011 completed Kortney Allar null, [facility] 04/04/2023 08:55:35 Tdap 03/15/2021 completed Kortney Allar null, [facility] 04/04/2023 08:55:35 zoster live 03/03/2015 completed Kortney Allar null, [facility] 04/04/2023 08:55:35 Influenza, high-dose, trivalent, PF 12/24/2013 completed Kortney Allar null, [facility] 04/04/2023 08:55:35 Influenza, high-dose, trivalent, PF 01/12/2015 completed Kortney Allar null, [facility] 04/04/2023 08:55:35 Influenza, high-dose, trivalent, PF 01/18/2016 completed Kortney Allar null, [facility] 04/04/2023 08:55:35 Influenza, split virus, trivalent, preservative 01/07/2013 completed Kortney Allar null, [facility] 04/04/2023 08:55:35 Influenza, split virus, trivalent, preservative 01/11/2011 completed Kortney Allar null, [facility] 04/04/2023 08:55:35 Influenza, split virus, trivalent, preservative 01/12/2009 completed Kortney Allar null, [facility] 04/04/2023 08:55:35 Influenza, split virus, trivalent, preservative 03/23/2012 completed Kortney Allar null, [facility] 04/04/2023 08:55:35 Td (adult), 5 Lf tetanus toxoid, preservative free, adsorbed 02/02/2006 completed Kortney Allar null, [facility] 04/04/2023 08:55:35 Influenza, split virus, quadrivalent, PF 02/18/2019 completed Kortney Allar null, [facility] 04/04/2023 08:55:35 Hep A-Hep B 10/03/2018 completed Kortney Allar null, [facility] 04/04/2023 08:55:35 Hep A-Hep B 03/03/2021 completed Kortney Allar null, [facility] 04/04/2023 08:55:35 Hep A-Hep B 04/02/2020 completed Kortney Allar null, [facility] 04/04/2023 08:55:35 Influenza, adjuvanted, quadrivalent, PF 03/13/2022 completed Kortney Allar null, [facility] 04/04/2023 08:55:42 Pneumococcal conjugate PCV20, polysaccharide MPV728 conjugate, adjuvant, PF 05/18/2022 completed Kortney Allar null, [facility] 04/04/2023 08:55:51 Influenza, high-dose, quadrivalent, PF 03/22/2023 completed Rm Mas MD [address] [facility], [place], [address], [facility] 01/02/2024 12:02:22 RSV, bivalent, protein subunit RSVpreF, diluent reconstituted, 0.5 mL, PF 05/23/2023 completed Rm Mas MD [address], [place], [address], [facility] 01/02/2024 12:02:22 Pneumococcal conjugate PCV 13 07/23/2014 completed Rm Mas MD [address], [place], [address], [facility] 12/19/2021 16:55:31 pneumococcal polysaccharide PPV23 12/17/2012 completed Rm Mas MD [address] [place] [address],[address], [place], [address], [facility] 12/19/2021 16:55:31 Past Encounters Encounter ID Performer Location Encounter Start Date Encounter Closed Date Diagnosis/Indication Diagnosis SNOMED-CT Code Diagnosis ICD10 Code [id number] MD INGA Gómez_Ana María [address] [place] [address] 12/19/2021 16:17:42 12/21/2021 15:53:54 Lower urinary tract symptoms due to benign prostatic hypertrophy 4783767001 9101 N40.1 Erectile dysfunction 860 950555 F52.21 [id number] MD INGA Gómez_Ana María [address] [place] [address] 03/20/2022 09:57:48 03/22/2022 09:47:12 Lower urinary tract symptoms due to benign prostatic hypertrophy [id number] 9101 N40.1 Erectile dysfunction 860 314932 F52.21 [id number] MD INGA Gómez_Ana María [address] [place] [address] 07/10/2022 11:08:57 07/13/2022 11:38:19 Lower urinary tract symptoms due to benign prostatic hypertrophy 3800756311 9101 N40.1 Erectile dysfunction 860 212558 F52.21 [id number] MD Zacarias Gómez [address] [place] [address] 06/20/2023 10:11:21 06/20/2023 12:20:35 Lower urinary tract symptoms due to benign prostatic hypertrophy 1892932794 9101 N40.1 Erectile dysfunction 860 838644 F52.21 [id number] Rm Mas MD [facility] [address] [place] [address] 01/02/2024 11:43:10 01/07/2024 12:28:43 Lower urinary tract symptoms due to benign prostatic hypertrophy [id number] 9101 N40.1 Erectile dysfunction 860 478202 F52.21 [id number] Luis Skeltonrigal-Jazmín alfredo [facility] [address] [place], [place] [address] 01/08/2024 11:53:44 01/09/2024 12:20:42 Lower urinary tract symptoms due to benign prostatic hypertrophy [id number] 9101 N40.1 Health Concerns Section Related Observation LastModified by Organization Detai ls LastModified Time None Recorded Concern Status LastModified by Organization Details LastModified Time None Recorded Advance Directives Directive None Recorded Payers Encounter Date Sequence Insurance Name Policy Number Policy Henry Covered Member ID Henry Member ID Guarantor Name 03/20/2022 1 [employer] (MEDICARE REPLACEMENT/A DVANTAGE - PPO) Nick Moreira [id number] Nick Moreira 07/10/2022 1 [employer] (MEDICARE REPLACEMENT/A DVANTAGE - PPO) Nick Moreira [id number] Nick Moreira 06/20/2023 1 [employer] (MEDICARE REPLACEMENT/A DVANTAGE - PPO) Nick Moreira [id number] Nick Moreira 01/02/2024 1 [employer] (MEDICARE REPLACEMENT/A DVANTAGE - PPO) Nick Moreira [id number] Nick Moreira 01/08/2024 1 [employer] (MEDICARE REPLACEMENT/A DVANTAGE - PPO) Nick Moreira [id number] Nick Moreira Notes Date Note Type Note Provider Name and Address Organization Details Recorded Time 03/20/2022 text/html HPI Notes: 76 yo male with H/O BPH and hematuria (negative evaluation in 2016 - Cystoscopy 01/24/16 revealed enlarged prostate with varicosities). He has tried Rapaflo - help with urination (cause nightmares / kicking). He tried Alfuzosin (caused lethargy) and Finasteride 5 mg daily (caused frequent BMs and flatulence). He also has trouble with erections. He is on Rapaflo (Silodosin) 4 mg daily and Finasteride 5 mg daily (started 11/29/21). 05/12/19 - He presents for follow-up on urination. He is taking 1/2 of Rapaflo daily (4 mg daily). He states his urination is better - less hesitancy, slow stream, and urgency.He voids every 2-3 hours during the day and 1-2x/night. He denies dysuria. He reports no changes in erections (difficulty obtaining and maintaining erections) despite Viagra. 11/22/21 - He presents for follow-up on urination. He voids every 2-3 hours during the day and 2-3x/night. He has occasional hesitancy, occasional urgency, and slow stream. He denies dysuria. 03/20/22 - He presents for follow-up on urination. He voids every 2 hours during the day and 2-3x/night. He still has occasional urgency. He also has difficulty maintaining erections. - PVR = 175 mL PSA - 0.80 (12/19/09) - 0.95 (12/16/13) - 1.16 (12/07/14) - 1.09 (12/09/15) - 1.02 (02/07/17) - 1.18 (03/17/19) - 1.53 (08/22/21) - 1.7 (12/19/21) - 2.04 (01/20/22) CT Urogram (12/13/15) - enlarged prostate - no stones or renal masses Rm Mas MD [address], [place], [address], [facility] 03/20/2022 13:59:29 07/10/2022 text/html HPI Notes: 76 yo male with H/O BPH and hematuria (negative evaluation in 2016 - Cystoscopy 01/24/16 revealed enlarged prostate with varicosities). He has tried Rapaflo - help with urination (cause nightmares / kicking). He tried Alfuzosin (caused lethargy) and Finasteride 5 mg daily (caused frequent BMs and flatulence). He also has trouble with erections. He is on Rapaflo (Silodosin) 8 mg daily and Finasteride 5 mg daily (started 11/29/21). 05/12/19 - He presents for follow-up on urination. He is taking 1/2 of Rapaflo daily (4 mg daily). He states his urination is better - less hesitancy, slow stream, and urgency.He voids every 2-3 hours during the day and 1-2x/night. He denies dysuria. He reports no changes in erections (difficulty obtaining and maintaining erections) despite Viagra. 11/22/21 - He presents for follow-up on urination. He voids every 2-3 hours during the day and 2-3x/night. He has occasional hesitancy, occasional urgency, and slow stream. He denies dysuria. 03/20/22 - He presents for follow-up on urination. He voids every 2 hours during the day and 2-3x/night. He still has occasional urgency. He also has difficulty maintaining erections. 07/10/22 - He presents for follow-up on urination. He voids every 2-3 hours during the day and 1-2x/night. He notes less urgency and better flow. He also has difficulty maintaining erections - ring helps. - PVR = 142 mL - PSA - 1.3 (07/05/22) PSA - 0.80 (12/19/09) - 0.95 (12/16/13) - 1.16 (12/07/14) - 1.09 (12/09/15) - 1.02 (02/07/17) - 1.18 (03/17/19) - 1.53 (08/22/21) - 1.7 (12/19/21) - 2.04 (01/20/22) - 1.3 (07/05/22) CT Urogram (12/13/15) - enlarged prostate - no stones or renal masses Rm Mas MD [address], [place], [address], [facility] 07/10/2022 13:35:45 06/20/2023 text/html HPI Notes: 77 yo male with H/O BPH and hematuria (negative evaluation in 2016 - Cystoscopy 01/24/16 revealed enlarged prostate with varicosities). He has tried Rapaflo - help with urination (cause nightmares / kicking). He tried Alfuzosin (caused lethargy) and Finasteride 5 mg daily (caused frequent BMs and flatulence). He also has trouble with erections. He is on Rapaflo (Silodosin) 8 mg daily and Finasteride 5 mg daily (started 11/29/21). 03/20/22 - He presents for follow-up on urination. He voids every 2 hours during the day and 2-3x/night. He still has occasional urgency. He also has difficulty maintaining erections. 07/10/22 - He presents for follow-up on urination. He voids every 2-3 hours during the day and 1-2x/night. He notes less urgency and better flow. He also has difficulty maintaining erections - ring helps. 06/20/23 - He presents for follow-up on urination. He voids every 2-3 hours during the day and 1-3x/night. He reports a weak to moderate flow. He notes mild downward curve with erections. - PVR = 220mL - PSA - 1.0ng/mL PSA - 0.80 (12/19/09) - 0.95 (12/16/13) - 1.16 (12/07/14) - 1.09 (12/09/15) - 1.02 (02/07/17) - 1.18 (03/17/19) - 1.53 (08/22/21) - 1.7 (12/19/21) - 2.04 (01/20/22) - 1.3 (07/05/22) - 1.0 (06/20/23) CT Urogram (12/13/15) - enlarged prostate - no stones or renal masses Rm Mas MD [address] [facility],[address], [place], [address], [facility] 06/20/2023 11:23:55 01/02/2024 text/html HPI Notes: 78 yo male with H/O BPH and hematuria (negative evaluation in 2016 - Cystoscopy 01/24/16 revealed enlarged prostate with varicosities). He has tried Rapaflo - help with urination (cause nightmares / kicking). He tried Alfuzosin (caused lethargy) and Finasteride 5 mg daily (caused frequent BMs and flatulence). He also has trouble with erections. He is on Rapaflo (Silodosin) 8 mg daily and Finasteride 5 mg daily (started 11/29/21). 07/10/22 - He presents for follow-up on urination. He voids every 2-3 hours during the day and 1-2x/night. He notes less urgency and better flow. He also has difficulty maintaining erections - ring helps. 06/20/23 - He presents for follow-up on urination. He voids every 2-3 hours during the day and 1-3x/night. He reports a weak to moderate flow. He notes mild downward curve with erections. 01/02/24-He presents for follow-up on urination. He voids every 2 hours during the day and 2-3x/night. He continues to have a slow stream. - PVR = 263 mL - PSA - 0.84 PSA - 0.80 (12/19/09) - 0.95 (12/16/13) - 1.16 (12/07/14) - 1.09 (12/09/15) - 1.02 (02/07/17) - 1.18 (03/17/19) - 1.53 (08/22/21) - 1.7 (12/19/21) - 2.04 (01/20/22) - 1.3 (07/05/22) - 1.0 (06/20/23) - 0.84 (01/02/24) CT Urogram (12/13/15) - enlarged prostate - no stones or renal masses Rm Mas MD [address] [facility],[address], [place], [address], [place] [facility] 01/03/2024 22:33:39
--- OUTSIDE RECORDS SUMMARY | 2024-01-13 17:26 | XMS_ITS | Clinical Summary ---
Author Organization [employer] [facility] Address [place], [place] [address] Care Team Providers Care Clerk Of Scales Name Role Phone Jarad Starr MD Primary Care Provider Allergies Active Allergy Reactions Criticality Noted Date Comments Amoxicillin Other - Describe In Comment Field 03/27/2017 diarrhea Dust Mites Dyspnea 01/07/2013 Erythromycin GI Upset 01/08/2012 Tamsulosin Other - Describe In Comment Field 01/08/2012 Nasal congestion Peanut Dyspnea 01/07/2013 Pollen Extracts Other - Describe In Comment Field 04/07/2013 Sinus congestion Sulfa (Sulfonamide Antibiotics) Rash 01/08/2012 Medications Medication Sig Dispensed Refills Start Date End Date Status cholecalciferol (VITAMIN D) 1,000 unit tablet Take 2 tablets by mouth once daily. 0 4 Active EPINEPHrine (EPIPEN) 0.3 mg/0.3 mL (1:1,000) injectionIndicat ions:Allergic rhinitis, unspecified allergic rhinitis type Use as directed 2 Each 5 Active triamcinolone, 55 mcg each actuation, nasal (NASACORT AQ) 55 mcg nasal sprayIndications :Allergic rhinitis due to pollen, unspecified seasonality Inhale 2 Sprays into both nostrils once daily. 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 20 tablet. 1 Active Silodosin 4 mg capIndications:B PH without urinary obstruction Take 1 Capsule (4 mg) by mouth once daily. 90 Capsule 3 2 Active finasteride (PROSCAR) 5 mg tablet finasteride 5 mg tablet Active lisinopriL (PRINIVIL; ZESTRIL) 20 mg tabletIndication s:Benign essential HTN Take 1 Tablet (20 mg) by mouth once daily. 90 Tablet 3 4 Active FLUoxetine (PROZAC) 20 mg capsuleIndicatio ns:Obsessive-com pulsive disorder, unspecified type Take 1 Capsule (20 mg) by mouth every morning. In combination with 10 mg capsule. 90 Capsule 3 4 Active azelastine 137 mcg/actuation (ASTELIN) nasal sprayIndications :Rhinitis, chronic Inhale 1 [place] into affected nostril(s) two times daily. 90 mL 4 4 Active FLUoxetine (PROZAC) 10 mg capsuleIndicatio ns:Obsessive-com pulsive disorder, unspecified type Two oral daily in combination with 20 mg capsule for total of 40mg per day. 4 Active busPIRone (BUSPAR) 10 mg tabletIndication s:Anxiety Take 0.5 Tablets (5 mg) by mouth three times daily. With meals 4 Active ipratropium (ATROVENT NASAL) 42 mcg (0.06 %) nasal sprayIndications :Vasomotor rhinitis Inhale 2 Sprays into affected nostril(s) three times daily. 45 mL 2 4 Active warfarin (COUMADIN) 5 mg tabletIndication s:Paroxysmal atrial fibrillation (HC),Anticoagula tion monitoring, INR range 2-3,New onset atrial fibrillation (HC) Take by mouth 5 mg (5 mg x 1) every Sun; 7.5 mg (5 mg x 1.5) all other days in the evening OR as directed 130 Tablet 4 Active ipratropium (ATROVENT NASAL) 42 mcg (0.06 %) nasal sprayIndications :Vasomotor rhinitis Inhale 2 Sprays into affected nostril(s) three times daily. 45 mL 1 4 12/26/19 24 Discontinued(Reo rder (E-cancel not sent)) warfarin (COUMADIN) 5 mg tabletIndication s:Paroxysmal atrial fibrillation (HC),Anticoagula tion monitoring, INR range 2-3,New onset atrial fibrillation (HC) Take by mouth 5 mg (5 mg x 1) every Fri; 7.5 mg (5 mg x 1.5) all other days in the evening OR as directed 130 Tablet 4 01/02/20 24 Discontinued doxycycline 100 mg capsuleIndicatio ns:Chronic rhinitis Take 1 Capsule (100 mg) by mouth two times daily for 10 days. 20 Capsule 4 01/03/20 24 Discontinued(*Pa amannt states no longer taking) methylPREDNISolo ne (MEDROL DOSEPAK) 4 mg tabletIndication s:Chronic rhinitis,Rhiniti s, unspecified type Take by mouth as instructed per packaging. 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 Adenomatous colon polyp 06/30/2016 Overview (2020): Colonoscopy 06/2016 larger polyp- SSA repeat in 3 years Colonoscopy 11/2020 TA, repeat in 5 years OBSESSIVE-COMPULSIVE DISORDER 01/12/2014 Impaired fasting glucose 12/24/2013 Essential hypertension 04/23/1979 ALLERGIC RHINITIS, SEASONAL Dyslipidemia Resolved Problems Problem Noted Date Diagnosed Date Resolved Date Depression, recurrent 09/05/20212023 Atrial fibrillation 11/19/2018 09/30/19 20 Anticoagulated on Coumadin 11/19/2018 1 06/19/2020 Vitamin D insufficiency 07/23/2014/0 10/2021 Adjustment disorder with depressed mood 01/12/2014 05/21/2023 Back pain 05/16/2012 04/29/2021 Obesity 04/23/2006 04/29/2021 Overview (12/11/2011): BMI 27 ANXIETY 04/23/1996 05/21/2023 OBSESSIVE-COMPULSIVE DISORDER 04/23/1996 07/23/2014 BENIGN PROSTATIC HYPERTROPHY, HX OF 04/02/2020 Encounters Date Type Department Care Team Description 01/03/2024 1:45 PM CDT Orders Only [facility] [address] [place] [address] [facility], [facility] 01/03/2024 Anticoagulation (warfarin) [facility] [address] [place] [address] 1, [facility] Anticoagulation 01/03/2024 Travel 01/03/2024 Telephone [facility] [address] [place] [phone] Irene Coulter PA 01/02/2024 Refill [facility] [address] [place] [address] Jarad Starr MD Refill Request (Warfarin) 01/01/2024 7:30 AM CDT Ancillary Procedure [facility] [address] [place] [address] 01/01/2024 Travel 12/29/2023 Anticoagulation (warfarin) [facility] [address] [place] [address] 1, [facility] Anticoagulation 12/28/2023 1:30 PM CDT Orders Only [address] [phone] Lab, [facility] 12/28/2023 Travel 12/25/2023 1:00 PM CDT Office Visit [address] [phone] Irene Coulter PA Consult (Rhinitis) 12/25/2023 Travel 11/29/2023 10:30 AM CDT Orders Only [address] [address] Lab, [facility] 11/29/2023 Anticoagulation (warfarin) [facility] [address] [place] [address] 1, [facility] Anticoagulation 11/29/2023 Telephone [facility] [address] [place] [address] Jarad Starr MD Anticoagulation (Yearly AC order renewal) 11/29/2023 Travel 10/23/2023 2:10 PM CDT Orders Only [facility] [address] [facility] [place] [address] Lab, [facility] 10/23/2023 Anticoagulation (warfarin) [facility] [address] [place] [address] 1, [facility] Anticoagulation 10/23/2023 Travel 10/22/2023 Telephone [facility] [address] [place] [address] Mikala Rodríguez PA returning call (Pt stated he is returning a call from Rosa (with Provider's team) today) 10/21/2023 Refill [facility] [address] [place] [address] Jarad Starr MD Refill Request (Warfarin) 10/16/2023 1:00 PM CDT Office Visit [facility] [address] [place] [address] Raman Varela, DPM Follow Up (Medication check, bilateral onychomycosis) 10/16/2023 Travel from Last 3 Months Immunizations Name Administration Dates Next Due AMB Influenza, IIV4 PF (=>6 mos Flulaval,Fluzone Fluarix)(Flu Clinic Only) 02/18/2019 COVID-19 vaccine (Moderna Emil maulik 50mcg/0.25mL) PF, MDV 11/29/2021 COVID-19 vaccine (Pfizer-Bio NTech 30mcg/0.3mL) PF, MDV 03/23/2021,06/08/2020,05/18/2020 HepA-HepB (Twinrix) 03/03/2021,04/02/2020,2018 Influenza Virus, Unspecified 02/03/2010,04/23/19 08 Influenza, High-dose Inactivated 01/18/2016,12/23,12/24/2013 Influenza, High-dose Quadriv alent Inactivated 03/22/2023 Influenza, IIV3 (Age >=3 years) 01/08/20 13,03/23/2012,01/11/2011,2008 Influenza, Inactivated AIIV4 (Age 65+ Years) Preserv Free 03/13/2022,03/15/2021,02/05/2020 Influenza, Inactivated IIV3 (Age 65+ Years) Preserv Free 01/04/2018,04/25/2017 Pneumococcal Conj 20-valent (Prevnar 20) 05/18/2022 Pneumococcal Poly,23-Valent (Pneumovax) 12/17/2012 Pneumococcal conj 13-Valent (Prevnar 13) 07/23/2014 Td, Preservative Free (age > = 7 Years) 02/02/2006 Tdap 03/15/2021,01/11/2011 Zoster (Shingrix-RZV, recombinant) 03/11/2020, Zoster (Zostavax-ZVL, live) 03/03/2015 Family History Medical History Relation Name Comments Aortic aneurysm Brother Atrial fibrillation Brother Heart Disease Father heart failure Other Father DVT/abdominal a ortic aneurysm Other Mother Anesthesia Problem Neg. 1 Cancer-colon Neg. 2 Cancer-prostate Neg. 3 Diabetes Neg. 4 Atrial fibrillation Sister Abnormal EKG No Family History Relation Name Status Comments Brother Father (Age 65) Mother in 2005 Neg. 1 Neg. 2 Neg. 3 Neg. 4 Sister Social History Tobacco Use Types Packs/Day Years Used Date Smoking Tobacco: Former Cigarettes 0.5 7 0 04/23/1976 - 1983 Smokeless Tobacco: Never Tobacco Cessation:Counseling Given: No Alcohol Use Standard Drinks/Week Comments No 0 (1 standard drink = 0.6 oz pur e alcohol) PHQ-2 Answer Date Recorded PHQ-2 TOTAL SCORE 0 09/11/2023 Social Connections Answer Date Recorded Frequency of Communication with Friends and Fami ly 0 08/06/2023 Financial Resource Strain Answer Date R ecorded Difficulty of Paying Living Expenses 3 08/06/2023 Difficulty of Paying Living Expenses Not on file 08/06/2023 Food Insecurity Answer Date Recorded Worried About Running Out of Food in the Last Ye ar 1 08/06/2023 Transportation Needs Answer Date Record ed Lack of Transportation (Medical) 1 08/06/2023 Housing Stability Answer Date Recorded Unable to Pay for Housing in the Last Year 1 08/06/2023 Sex and Gender Information Value Date Recorded Sex Assigned at Male 06/08/2020 9:59 AM PROFESSOR OF MANAGEMENT Gender Identity Male 06/08/2020 9:59 AM PROFESSOR OF MANAGEMENT Sexual Orientation Straight 06/08/2020 9: 59 AM PROFESSOR OF MANAGEMENT Obstetrics History Last Filed Vital Signs Vital Sign Reading Time Taken Comments Blood Pressure 105/67 10/16/2023 12:58 PM CDT Pulse 88 10/16/2023 12:58 PM CDT Temperature 36.4 ??C (97.6 ??F) 09/28/2023 2:05 PM CD T Respiratory Rate 12 09/28/2023 2:05 PM CDT Oxygen Saturation 96% 10/16/2023 12: 58 PM CDT Inhaled Oxygen Concentration - - Weight 84.8 kg (186 lb 14.4 oz) 09/28/2023 2:05 PM CDT Height 184 cm (6' 0.44) 07/09/2023 10: 30 AM CDT Body Mass Index 25.04 07/09/2023 10:30 AM CDT Plan of Treatment Upcoming Encounters Date Type Department Care Team (Late st Contact Info) Description 01/28/2024 7:30 AM CDT Office Visit [facility] [address] [place] [address] Camille Rodríguez NP [address] [place] [address] 01/31/2024 9:30 AM CDT Orders Only [facility] [address] [place] [address] Lab, [place] Maintenance Due Date Last Done Comments RSV vaccine for adults or (1 - 1-dose 60+ series) 2007 COVID-19 vaccine series (2022- season) 2023 11/29/2021, 03/23/2021, 06/08/2020, Additional history exists Influenza for age 65+ 12/23/2023 03/22/2023 , 03/13/2022, 03/15/2021, Additional history exists Medicare Wellness for age 65+ 05/21/2024, 05/18/2022, 04/29/2021, Additional history exists BMI (ht and wt on same day) for age 18+ 07/08/2024 07/09/2023, 05/21/2023, 12/11/2022, Additional history exists Depression screening for age 12+ 09/10/2024 09/11/2023, 08/13/2023, 05/24/2023, Additional history exists Tetanus booster 03/15/2031 03/15/2021, 12/23, 02/02/2006 Hepatitis C screening for ag e 18-79 Completed 01/18/2016 Zoster (shingles) series for age 50+ Completed 03/11/2020, 12/19/2019, 03/03/2015 Tdap Completed 03/15/2021, 01/11/2011 Pneumococcal series for age 65+ Completed 05/18/2022, 07/23/2014, 12/17/2012 Procedures Procedure Name Priority Date/Time Associated Diagnosis Comments INR,POCT Routine 01/03/2024 1:51 PM CDT Paroxysmal atrial fibrillation (HC) Anticoagulation monitoring, INR range 2-3 CT HEAD SINUS LANDMARX WO Routine 01/01/2024 7:42 AM CDT Chronic rhinitis Rhinitis, unspecified type PROTIME-INR STAT 12/28/2023 1:22 PM CDT Paroxysmal atrial fibrillation (HC) Anticoagulation monitoring, INR range 2-3 PROTIME-INR STAT 11/29/2023 10:41 AM CDT Paroxysmal atrial fibrillation (HC) Anticoagulation monitoring, INR range 2-3 PROTIME-INR STAT 10/23/2023 1:47 PM CDT Paroxysmal atrial fibrillation (HC) Anticoagulation monitoring, INR range 2-3 ANTI HCV Routine 01/18/2016 9:33 AM CDT Need for hepatitis C screening test from Last 3 Months or Most Recently Relevant to Health Maintenance Results * (ABNORMAL) INR,POCT (01/03/2024 1:51 PM CDT) INR 2.2(H) <1.3 01/03/2024 1:51 PM CDT [facility] Blood BLOOD SPECIMEN / Unknown Capillary / Unknown 01/03/2024 1:51 PM CDT 01/03/2024 1:51 PM CDT Narrative [facility] - 01/03/2024 1:51 PM CDT ?Therapeutic Range 2.0-3.0 for most anticoagulated patients 2.5-3.5 or 4.0 for high risk patients Jarad Starr MD LABORATORY [facility] [address] [place] [address], * CT HEAD SINUS LANDMARX WO (01/01/2024 7:42 AM CDT) Anatomical Region Laterality Modality SINUS Computed Tomogra phy 01/01/2024 3:16 PM CDT Narrative 01/01/2024 3:16 PM CDT For Patients: ??As a result of the Century Cures Act, medical imaging exams and procedure reports are released immediately into your electronic medical record. ??You may view this report before your referring provider. ??If you have questions, please contact your health care provider. Indication: Chronic rhinitis Technique: Performed without IV contrast Comparison: 01/04/2021 minimal mucosal thickening within the left frontal sinus. The right frontal sinus is patent. Findings: Frontal sinuses: Clear. Ethmoid sinuses: Postop changes. No abnormality. Maxillary sinuses: Mucosal thickening within both maxillary sinuses. Postop changes to the drainage pathways noted without obstruction. Sphenoid sinuses: Very minimal mucosal thickening within the sphenoid sinuses. Patent sphenoethmoidal recesses. Nasal Cavity: Slight rightward curvature of the nasal septum. Turbinates normal. No polyps. Generalized cerebral cortical atrophy noted. Impression: 1. Bilateral maxillary sinus disease, left greater than right. 2. Postop changes. No obstruction to the sinus drainage pathways. Please note that all CT scans at this facility use dose modulation, iterative reconstruction, and/or weight-based dosing when appropriate to reduce radiation dose to as low as reasonably achievable. Dictated by Malcom Alexis MD @ 01/01/2024 3:16:36 PM (Electronically Signed) Procedure Note Malcom Alexis MD - 01/01/2024 For Patients: As a result of the Century Cures Act, medical imagingexams and procedure reports are released immediately into your electronicmedical record. You may view this report before your referring provider.If you have questions, please contact your health care provider. Indication: Chronic rhinitis Technique: Performed without IV contrast Comparison: 01/04/2021 minimal mucosal thickening within the left frontal sinus. Theright frontal sinus is patent. Findings: Frontal sinuses: Clear. Ethmoid sinuses: Postop changes. No abnormality. Maxillary sinuses: Mucosal thickening within both maxillary sinuses.Postop changes to the drainage pathways noted without obstruction. Sphenoid sinuses: Very minimal mucosal thickening within the sphenoidsinuses. Patent sphenoethmoidal recesses. Nasal Cavity: Slight rightward curvature of the nasal septum. Turbinatesnormal. No polyps. Generalized cerebral cortical atrophy noted. Impression: 1. Bilateral maxillary sinus disease, left greater than right. 2. Postop changes. No obstruction to the sinus drainage pathways. Please note that all CT scans at this facility use dose modulation,iterative reconstruction, and/or weight-based dosing when appropriate toreduce radiation dose to as low as reasonably achievable. Dictated by Malcom Alexis MD @ 01/01/2024 3:16:36 PM (Electronically Signed) Irene MCALLISTER CT * (ABNORMAL) PROTIME-INR (12/28/2023 1:22 PM CDT) Only the most recent of3 resultswithin the time period is included. INR 2.4(H) <1.3 12/28/2023 1:33 PM CDT [facility] PROTIME 26.3(H) 10.3 - 12.3 sec 12/28/2023 1:33 PM CDT [facility] Blood BLOOD SPECIMEN / Unknown Venipuncture / Unknown 12/28/2023 1:22 PM CDT 12/28/2023 1:23 PM CDT Narrative [facility] - 12/28/2023 1:33 PM CDT ?Therapeutic Range 2.0-3.0 for most anticoagulated patients 2.5-3.5 or 4.0 for high risk patients The INR is only used for patients on stable oral anticoagulant therapy. It makes no significant contribution to the diagnosis or treatment of patients whose Protime is prolonged for other reasons. INR results are increased when heparin levels exceed 1.0 U/mL, which corresponds to an aPTT >125 seconds if the patient is on UFH. Jarad Starr MD HEMATOLOGY Performing Organization Address City/[facility]/ZIP Co de Phone Number [facility] [address] [place] [address] * ANTI HCV [[id number]] (01/18/2016 9:33 AM CDT) HEPATITIS C ANTIBODY Non-Reacti ve Non-Reacti ve 01/18/2016 6:57 PM CDT [facility] Blood BLOOD SPECIMEN / Unknown Venipuncture / Unknown 01/18/2016 9:33 AM CDT 01/18/2016 9:33 AM CDT Narrative [facility] - 01/18/2016 6:57 PM CDT Antibodies to HCV not detected; does not exclude the possibility of exposure to HCV. Jarad Starr MD SEND OUTS [facility] 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
--- OUTSIDE RECORDS SUMMARY | 2024-01-13 17:27 | XMS_ITS | Continuity of Care Document ---
Author Organization [facility], [facility] Address [address] [place] [address] Care Team Providers Care Lamp Developer Name Role Phone DOMINICK WHITMAN Primary Care Provider Assessment No assessment recorded. Plan of Treatment Reminders Order Date Submit Date Provider Last Modified By Organization Details Last Modified Time Details Appointments ESTABLISH ED 10 2023 10:30A M Not available Not available Not available Lab None recorded. Referral None recorded. Procedures None recorded. Surgeries None recorded. Imaging None recorded. Medication Orders None recorded. Patient TargetsNo targets recorded. Patient InstructionsNo instructions recorded. Reason for Referral None Reported. Procedures Surgical History Date Name Laterality Status Provider Name and Address Organization Details Recorded Time 4 Bladder Scan completed [facility] 01/08/2024 12:21:45 4 [place] - UroCuff completed [facility] 01/08/2024 12:23:07 4 Bladder Scan completed Rm Mas MD [address] [place] [address],[address], [address], [facility] 01/02/2024 12:04:36 4 Blood Draw/COMMUNITY SERVICE OFFICER/PSA RESULTS completed Rm Mas MD [address] [place] [address],[facility] [address], [address], [facility] 01/02/2024 12:04:41 4 COMMUNITY SERVICE OFFICER/blood draw completed Rm Mas MD [address] [place] [address],[address], [address], [facility] 06/20/2023 10:46:28 4 Bladder Scan completed Rm Mas MD [address] [place] [address],[address], [place], [address], [facility] 06/20/2023 10:50:58 3 Bladder Scan completed Charlie Lamchapo [facility] 07/10/2022 11:35:14 2 Bladder Scan completed Charlie Jang [facility] 03/20/2022 10:16:14 2 COMMUNITY SERVICE OFFICER/blood draw completed Rm Mas MD [address] [place] [address],[address], [place], [address], [facility] 12/19/2021 16:59:44 2 Bladder Scan completed Rm Mas MD [address] [place] [address],[address] [place] [address], [address], [facility] 12/19/2021 16:59:39 7 Colonoscopy completed Rm Mas MD [address] [place] [address],[address] [place] [address], [address], [facility] 12/19/2021 16:58:49 procedure on nose completed Rm Mas MD [address] [place] [address],[address], [place], [address], [facility] 12/19/2021 16:58:21 Hernia Repair completed Rm Mas MD [address] [place] [address],[address], [place], [address], [facility] 12/19/2021 16:58:30 Imaging Results None recorded. Procedure Notes None recorded. Medical Equipment None Reported. Allergies Allergen ID Allergen Name Allergen Category Reaction Reaction Severity Criticality Documentation Date Start Date Code Code System Note Provider Name and Address Organization Details Recorded Time 599789 Substance with sulfonami de structure and antibacte rial mechanism of action (substanc e) medicatio n Not available Not available Not available 12/19/2021 19984 8003 SNOMED Rm Mas MD [address] [place] [address],[address] [place] [address], [address], [facility] 16:55:44 935974 amoxicill in medicatio n Not available Not available Not available 12/19/2021 723 RxNorm Rm Mas MD [address] [place] [address],[address] [place] [address], [place], [address], [facility] 2 16:55:49 [id number] erythromy vanda medicatio n Not available Not available Not available 12/19/2021 4053 RxNorm Rm Mas MD [address] [place] [address],[facility] [address], [place], [address], [facility] 2 16:55:54 835617 house dust allergeni c extract environme nt,medica tion Not available Not available Not available 12/19/2021 94995 9 RxNorm Rm Mas MD [address] [place] [address] E [facility], [place], [address], [facility] 2 16:56:12 536722 house dust mite environme nt Not available Not available Not available 12/19/2021 Rm Mas MD [address] [place] [address] E [facility], [place], [address], [facility] 2 16:56:17 869062 Flomax medicatio n Not available Not available Not available 12/19/2021 63161 3 RxNorm Rm Mas MD [address] [place] [address] [place] [address], [address], [facility] 2 16:56:23 782097 peanut allergeni c extract food,medi cation Not available Not available Not available 12/19/2021 80918 8 RxNorm Rm Mas MD [address] [place] [address] [place] [address], [address], [facility] 2 16:56:31 Medications Name Sig Start [...] Not Available Not Available Not Available Vitals None Recorded Social History Question Answer Notes LastModified by Organizat ion Details LastModified Time Tobacco Smoking Status Former Smoker Rm Mas MD [address] [facility],[address], [place], [address], [facility] 12/19/2021 16:58:04 What Is Your Level [...] Influenza, adjuvanted, trivalent, PF 04/25/2017 completed Kortney reeder [facility] 04/04/2023 08:55:35 Influenza, adjuvanted, trivalent, PF 01/04/2018 completed Kortney reeder [facility] 04/04/2023 08:55:35 zoster recombinant 12/19/2019 completed Kortney Vazquez [facility] 04/04/2023 08:55:35 zoster recombinant 03/11/2020 completed Kortney Al lar null, [facility] 04/04/2023 08:55:35 Influenza, adjuvanted, quadrivalent, PF 02/05/2020 completed Kortney Allar null, [facility] 04/04/2023 08:55:35 Influenza, adjuvanted, quadrivalent, PF 03/15/2021 completed Kortney Allar null, [facility] 04/04/2023 08:55:35 COVID-19, mRNA, LNP-S, PF, 100 mcg/0.5mL dose or 50 mcg/0.25mL dose 11/29/2021 completed Kortney Allar null, [facility] 04/04/2023 08:55:35 COVID-19, mRNA, LNP-S, PF, 30 mcg/0.3 mL dose 05/18/2020 completed Kortney Allar null, [facility] 04/04/2023 08:55:35 COVID-19, mRNA, LNP-S, PF, 30 mcg/0.3 mL dose 06/08/2020 completed Kortney Allar null, [facility] 04/04/2023 08:55:35 COVID-19, mRNA, LNP-S, PF, 30 mcg/0.3 mL dose 03/23/2021 completed Kortney Allar null, [facility] 04/04/2023 08:55:35 Tdap 01/11/2011 completed Kortney Allar null, [facility] 04/04/2023 08:55:35 Tdap 03/15/2021 completed Kortney Allar null, [facility] 04/04/2023 08:55:35 zoster live 03/03/2015 completed Kortney Allar null, [facility] 04/04/2023 08:55:35 Influenza, high-dose, trivalent, PF 12/24/2013 completed Kortney Allar null, [facility] 04/04/2023 08:55:35 Influenza, high-dose, trivalent, PF 01/12/2015 completed Kortney Allar null, [facility] 04/04/2023 08:55:35 Influenza, high-dose, trivalent, PF 01/18/2016 completed Kortney Allar null, [facility] 04/04/2023 08:55:35 Influenza, split virus, trivalent, preservative 01/07/2013 completed Kortney Allar null, [facility] 04/04/2023 08:55:35 Influenza, split virus, trivalent, preservative 01/11/2011 completed Kortney Allar null, [facility] 04/04/2023 08:55:35 Influenza, split virus, trivalent, preservative 01/12/2009 completed Kortney Allar null, [facility] 04/04/2023 08:55:35 Influenza, split virus, trivalent, preservative 03/23/2012 completed Kortney Allar null, [facility] 04/04/2023 08:55:35 Td (adult), 5 Lf tetanus toxoid, preservative free, adsorbed 02/02/2006 completed Kortney Allar null, [facility] 04/04/2023 08:55:35 Influenza, split virus, quadrivalent, PF 02/18/2019 completed Kortney Allar null, [facility] 04/04/2023 08:55:35 Hep A-Hep B 10/03/2018 completed Kortney Allar null, [facility] 04/04/2023 08:55:35 Hep A-Hep B 03/03/2021 completed Kortney Allar null, [facility] 04/04/2023 08:55:35 Hep A-Hep B 04/02/2020 completed Kortney Allar null, [facility] 04/04/2023 08:55:35 Influenza, adjuvanted, quadrivalent, PF 03/13/2022 completed Kortney Allar null, [facility] 04/04/2023 08:55:42 Pneumococcal conjugate PCV20, polysaccharide [id number] conjugate, adjuvant, PF 05/18/2022 completed Kortney Allar null, [facility] 04/04/2023 08:55:51 Influenza, high-dose, quadrivalent, PF 03/22/2023 completed Rm Mas MD [address] [place] [address],[address], [address], [facility] 01/02/2024 12:02:22 RSV, bivalent, protein subunit RSVpreF, diluent reconstituted, 0.5 mL, PF 05/23/2023 completed Rm Mas MD [address] [place] [address],[place] [address], [place], [address], [facility] 01/02/2024 12:02:22 Pneumococcal conjugate PCV 13 07/23/2014 completed Rm Mas MD [address] [place] [address],[address], [address], [facility] 12/19/2021 16:55:31 pneumococcal polysaccharide PPV23 12/17/2012 completed Rm Mas MD [address] [place] [address],[address], [address], [facility] 12/19/2021 16:55:31 Past Encounters Encounter ID Performer Location Encounter Start Date Encounter Closed Date Diagnosis/Indication Diagnosis SNOMED-CT Code Diagnosis ICD10 Code [id number] Rm Mas MD [facility] [address] [place] [address] 01/02/2024 11:43:10 01/07/2024 12:28:43 Lower urinary tract symptoms due to benign prostatic hypertrophy 2118120135 9101 N40.1 Erectile dysfunction 860 828627 F52.21 [id number] Luis fuentes [facility] [address] [place] [address] 01/08/2024 11:53:44 01/09/2024 12:20:42 Lower urinary tract symptoms due to benign prostatic hypertrophy 0432233052 9101 N40.1 Health Concerns Section Related Observation LastModified by Organization Detai ls LastModified Time None Recorded Concern Status LastModified by Organization Details LastModified Time None Recorded Payers Encounter Date Sequence Insurance Name Policy Number Policy Henry Covered Member ID Henry Member ID Guarantor Name 01/08/2024 1 [employer] (MEDICARE REPLACEMENT/A DVANTAGE - PPO) Nick Moreira [id number] Nick Moreira
--- OUTSIDE RECORDS SUMMARY | 2024-01-13 17:27 | XMS_ITS | Continuity of Care Document ---
Author Organization [facility], [facility] Address [address] [place] [address] Care Team Providers Care Bull Wheel Worker Name Role Phone ANTONETTE DOMINICK Primary Care Provider Assessment No assessment recorded. Plan of Treatment Reminders Order Date Submit Date Provider Last Modified By Organization Details Last Modified Time Details Appointments ESTABLISH ED 10 2023 10:30A M Not available Not available Not available Lab PSA, serum or plasma 2023 024 [facility], [address] [place], [address], 01/02/2024 12:20:03 Referral None recorded. Procedures electromy [...] Abnormal Flag Note LastModifiedBy Organization Detail LastModifiedTime 01/02/20 24 01/02/2024 PSA, serum or plasm a PSA 0.84ng /mL 0-4.0 NG/mL Not Available [facility] [address], [place], [address], 01/01/2024 11:38:42 Result Notes None recorded. Procedures Surgical History Date Name Laterality Status Provider Name and Address Organization Details Recorded Time 4 Bladder Scan completed [facility] 01/08/2024 12:21:45 4 [place] - UroCuff completed [facility] 01/08/2024 12:23:07 4 Bladder Scan completed Rm Mas MD [address] [place] [address],[address], [place], [address], [facility] 01/02/2024 12:04:36 4 Blood Draw/PLACEMENT ASSISTANT/PSA RESULTS completed Rm Mas MD [address] [place] [address],[address], [place], [address], [facility] 01/02/2024 12:04:41 4 PLACEMENT ASSISTANT/blood draw completed Rm Mas MD [address] [place] [address],[address], [place], [address], [facility] 06/20/2023 10:46:28 4 Bladder Scan completed Rm Mas MD [address] [place] [address],[address], [place], [address], [facility] 06/20/2023 10:50:58 3 [facility] 11:35:14 2 Bladder Scan completed Charlie Jang [facility] 03/20/2022 10:16:14 2 PLACEMENT ASSISTANT/blood draw completed Rm Mas MD [address] [place] [address],[address], [place], [address], [facility] 12/19/2021 16:59:44 2 Bladder Scan completed Rm Mas MD [address] [place] [address],[address], [place], [address], [facility] 12/19/2021 16:59:39 7 Colonoscopy completed Rm Msa MD [address] [place] [address],[address], [place], [address], [facility] 12/19/2021 16:58:49 procedure on nose completed Rm Mas MD [address] [place] [address],[address], [place], [address], [facility] 12/19/2021 16:58:21 Hernia Repair completed Rm Mas MD [address] [place] [address],[address], [place], [address], [facility] 12/19/2021 16:58:30 Imaging Results None recorded. Procedure Notes None recorded. Medical Equipment None Reported. Allergies Allergen ID Allergen Name Allergen Category Reaction Reaction Severity Criticality Documentation Date Start Date Code Code System Note Provider Name and Address Organization Details Recorded Time 436528 Substance with sulfonami de structure and antibacte rial mechanism of action (substanc e) medicatio n Not available Not available Not available 12/19/2021 88469 8003 SNOMED Rm Mas MD [address] [place] [address],[address] [place], [place] [address], [facility] 2 16:55:44 141302 amoxicill in medicatio n Not available Not available Not available 12/19/2021 723 RxNorm Rm Mas MD [address] [place] [address],[address] [place] [address], [facility] 2 16:55:49 704879 erythromy vanda medicatio n Not available Not available Not available 12/19/2021 4053 RxNorm Rm Mas MD [address] [place] [address],[address] [address], [facility] 2 16:55:54 239215 house dust allergeni c extract environme nt,medica tion Not available Not available Not available 12/19/2021 03606 9 RxNorm Rm Mas MD [address] [place] [address],[address] [address], [facility] 2 16:56:12 319783 house dust mite environme nt Not available Not available Not available 12/19/2021 Rm Mas MD [address] [place] [address],[address], [place], [address], [facility] 2 16:56:17 962743 Flomax medicatio n Not available Not available Not available 12/19/2021 45631 3 RxNorm Rm Mas MD [address] [facility],[address], [place], [address], [facility] 2 16:56:23 903597 peanut allergeni c extract food,medi cation Not available Not available Not available 12/19/2021 49920 8 RxNorm Rm Mas MD [address] [facility],[address], [place], [address], [facility] 2 16:56:31 Medications Name Sig [...] Updated DateTime 01/02/2024 182.88 cm 24.4 kg/m2 17476.63 g Rm Mas MD [address] [place] [address], [address], [facility] 01/02/2024 12:02:16 Social History Question Answer Notes LastModified by Organizat ion Details LastModified Time Tobacco Smoking Status Former Smoker Rm Mas MD [address] [place] [address],[address], [address], [facility] 12/19/2021 16:58:04 What Is Your [...] Influenza, adjuvanted, trivalent, PF 04/25/2017 completed Kortney Allar null, [facility] 04/04/2023 08:55:35 Influenza, adjuvanted, trivalent, PF 01/04/2018 completed Kortney Allar null, [facility] 04/04/2023 08:55:35 zoster recombinant 12/19/2019 completed Kortney Al lar null, [facility] 04/04/2023 08:55:35 zoster recombinant 03/11/2020 completed Kortney Al lar null, [facility] 04/04/2023 08:55:35 Influenza, adjuvanted, quadrivalent, PF 02/05/2020 completed Kortney Allar null, [facility] 04/04/2023 08:55:35 Influenza, adjuvanted, quadrivalent, PF 03/15/2021 completed Kortney Allar null, [facility] 04/04/2023 08:55:35 COVID-19, mRNA, LNP-S, PF, 100 mcg/0.5mL dose or 50 mcg/0.25mL dose 11/29/2021 completed Kortney Allar null, [facility] 04/04/2023 08:55:35 COVID-19, mRNA, LNP-S, PF, 30 mcg/0.3 mL dose 05/18/2020 completed Kortney Allar null, [facility] 04/04/2023 08:55:35 COVID-19, mRNA, LNP-S, PF, 30 mcg/0.3 mL dose 06/08/2020 completed Kortney Allar null, [facility] 04/04/2023 08:55:35 COVID-19, mRNA, LNP-S, PF, 30 mcg/0.3 mL dose 03/23/2021 completed Kortney Allar null, [facility] 04/04/2023 08:55:35 Tdap 01/11/2011 completed Kortney Allar null, [facility] 04/04/2023 08:55:35 Tdap 03/15/2021 completed Kortney Allar null, [facility] 04/04/2023 08:55:35 zoster live 03/03/2015 completed Kortney Allar null, [facility] 04/04/2023 08:55:35 Influenza, high-dose, trivalent, PF 12/24/2013 completed Kortney Allar null, [facility] 04/04/2023 08:55:35 Influenza, high-dose, trivalent, PF 01/12/2015 completed Kortney Allar null, [facility] 04/04/2023 08:55:35 Influenza, high-dose, trivalent, PF 01/18/2016 completed Kortney Allar null, [facility] 04/04/2023 08:55:35 Influenza, split virus, trivalent, preservative 01/07/2013 completed Kortney Allar null, [facility] 04/04/2023 08:55:35 Influenza, split virus, trivalent, preservative 01/11/2011 completed Kortney Allar null, [facility] 04/04/2023 08:55:35 Influenza, split virus, trivalent, preservative 01/12/2009 completed Kortney Allar null, [facility] 04/04/2023 08:55:35 Influenza, split virus, trivalent, preservative 03/23/2012 completed Kortney Allar null, [facility] 04/04/2023 08:55:35 Td (adult), 5 Lf tetanus toxoid, preservative free, adsorbed 02/02/2006 completed Kortney Allar null, [facility] 04/04/2023 08:55:35 Influenza, split virus, quadrivalent, PF 02/18/2019 completed Kortney Allar null, [facility] 04/04/2023 08:55:35 Hep A-Hep B 10/03/2018 completed Kortney Allar null, [facility] 04/04/2023 08:55:35 Hep A-Hep B 03/03/2021 completed Kortney Allar null, [facility] 04/04/2023 08:55:35 Hep A-Hep B 04/02/2020 completed Kortney Allar null, [facility] 04/04/2023 08:55:35 Influenza, adjuvanted, quadrivalent, PF 03/13/2022 completed Kortney Allar null, [facility] 04/04/2023 08:55:42 Pneumococcal conjugate PCV20, polysaccharide [id number] conjugate, adjuvant, PF 05/18/2022 completed Kortney Allar null, [facility] 04/04/2023 08:55:51 Influenza, high-dose, quadrivalent, PF 03/22/2023 completed Rm Mas MD [address] [place] [address],[address], [address], [facility] 01/02/2024 12:02:22 RSV, bivalent, protein subunit RSVpreF, diluent reconstituted, 0.5 mL, PF 05/23/2023 completed Rm Mas MD [address] [place] [address],[address], [address], [facility] 01/02/2024 12:02:22 Pneumococcal conjugate PCV 13 07/23/2014 completed Rm Mas MD [address] [place] [address],[address], [address], [facility] 12/19/2021 16:55:31 pneumococcal polysaccharide PPV23 12/17/2012 completed Rm Mas MD [address] [facility],[address], [place], [address], [facility] 12/19/2021 16:55:31 Past Encounters Encounter ID Performer Location Encounter Start Date Encounter Closed Date Diagnosis/Indication Diagnosis SNOMED-CT Code Diagnosis ICD10 Code [id number] Rm Mas MD [facility] [address] [place] [address] 01/02/2024 11:43:10 01/07/2024 12:28:43 Lower urinary tract symptoms due to benign prostatic hypertrophy 2476054942 9101 N40.1 Erectile dysfunction 860 159426 F52.21 Health Concerns Section Related Observation LastModified by Organization Detai ls LastModified Time None Recorded Concern Status LastModified by Organization Details LastModified Time None Recorded Payers Encounter Date Sequence Insurance Name Policy Number Policy Henry Covered Member ID Henry Member ID Guarantor Name 01/02/2024 1 [employer] (MEDICARE REPLACEMENT/A DVANTAGE - PPO) Nick Moreira [id number] Nick Moreira Notes Date Note Type Note Provider Name and Address Organization Details Recorded Time 01/02/2024 text/html HPI Notes: 78 yo male [...] stones or renal masses Rm Mas MD [address] [facility],[address], [place], [address], [place] [facility] 01/03/2024 22:33:39
[2024-01-13] MEDS: BACITRACIN OINTMENT BULK TUBE 1 APPLIC TOPICAL (18:10)
[2024-01-13] MEDS: ACETAMINOPHEN 500 MG TABLET 1000 MG PO (18:25)
== END 2024-01-13 18:32 | disposition home or self-care (01) ==
PROVIDERS: Emergency Provider Family Medicine; PCP Family Medicine
DX: S09.90XA Unspecified injury of head, initial encounter (principal); S00.01XA Abrasion of scalp, initial encounter; S60.511A Abrasion of right hand, initial encounter; S40.211A Abrasion of right shoulder, initial encounter; V43.52XA Car driver injured in collision with other type car in traffic accident, initial encounter
CPT/HCPCS: 70450; 99284; A9270

== ENCOUNTER 2024-02-14 03:42 | Emergency (ER) | payer OTHER, SELFPAY ==
[2024-02-14] VITALS (8 sets, daily range): BP systolic 149–180; BP diastolic 84–105; PULSE 66–101; RESP 18–20; TEMP 36.6–36.7; O2SAT 96–99; BMI 24.4
--- NOTE | 2024-02-14 03:50 | CT_ITS ---
Patient: PRASHANTH STEWART Facility:?[facility] Patient ID:?[id number] Site Patient ID:?[id number]. Site :?1945 Study:?CT-Head W/O-02/14/2024 4:12:38 AM Ordering Physician:Aurora العراقي Final Report: INDICATION: Headache COMPARISON: February 06, 2024 TECHNIQUE: CT examination of the head was performed as axial sections without intravenous contrast. Images were obtained from the vertex of the skull through the skull base. Please note that all CT scans at this facility use dose modulation, iterative reconstruction, and/or weight-based dosing when appropriate to reduce radiation dose to as low as reasonably achievable. FINDINGS: There is a large left-sided subdural hematoma. This overlies the left frontal, parietal, temporal and to a lesser degree occipital convexities. No definite interhemispheric component. Maximum depth is 2.2 centimeters as measured from coronal image number 33. There is marked associated mass effect. There is effacement of a significant portion of the left lateral ventricular system, findings of early left hemispheric cerebral edema and rightward subfalcine herniation maximally measuring 12 millimeters from coronal image number 35. There is no definite intraparenchymal hemorrhage. Emergent neurosurgical consultation is advised Background of atrophy and white matter disease The left-sided extra-axial hemorrhage was present on the prior study maximum measuring about 5 millimeters The visualized portions of the orbits are normal in appearance. The osseous structures are normal in appearance with no sign of abnormality in the skull base or calvarium. I discussed the above findings with Dr. Jean at 4:40 a.m. on February 14, 2024 IMPRESSION: 1. Large left-sided subdural hematoma. This overlies all of the supratentorial convexities on the left, most affecting the frontal lobe and least affecting the occipital lobe. This is associated with significant mass effect, mild subjacent left supratentorial cerebral edema, effacement of the left lateral ventricular system and rightward subfalcine shift of about 2.2 centimeters. No definite interhemispheric component or intraparenchymal component 2. Background of atrophy and white matter disease 3. Emergent neurosurgical consultation is advised Please note that all CT scans at this facility use dose modulation, iterative reconstruction, and/or weight-based dosing when appropriate to reduce radiation dose to as low as reasonably achievable. Dictated by Prashanth Wu MD @ 02/14/2024 4:42:22 AM Signed by:?Prashanth Wu MD @02/14/2024 4:42:22 AM (Electronic Signature)
--- OUTSIDE RECORDS SUMMARY | 2024-02-14 04:48 | XMS_ITS | Continuity of Care Document ---
Author Organization [facility] Address [address] 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 Plan of Treatment Reminders Order Date Submit Date Provider Last Modified By Organization Details Last Modified Time Details Appointments PROCEDURE 20 2023 10:00A M [facility] C_RM_B Not available Not available Not available ESTABLISH ED 20 2023 10:00A M Rm Mas MD Not available Not available Not available Lab None recorded. Referral None recorded. Procedures None recorded. Surgeries None recorded. Imaging None recorded. Medication Orders None recorded. Patient TargetsNo targets recorded. Patient InstructionsNo instructions recorded. Reason for Referral None Reported. Procedures Surgical History Date Name Laterality Status Provider Name and Address Organization Details Recorded Time [address] [facility] 01/08/2024 12:21:45 4 [place] - UroCuff completed [facility] 01/08/2024 12:23:07 4 Bladder Scan completed Rm Mas MD [address] [place] [address],[address], [address], [facility] 01/02/2024 12:04:36 4 Blood Draw/HARD CANDY BATCH MIXER/PSA RESULTS completed Rm Mas MD [address] [place] [address],[address], [address], [facility] 01/02/2024 12:04:41 4 HARD CANDY BATCH MIXER/blood draw completed Rm Mas MD [address] [place] [address],[address], [address], [facility] 06/20/2023 10:46:28 4 Bladder Scan completed Rm Mas MD [address] [place] [address],[address], [place], [address], [facility] 06/20/2023 10:50:58 3 Bladder Scan completed Charlie Jang [facility] 07/10/2022 11:35:14 2 Bladder Scan completed Charlie Jang [facility] 03/20/2022 10:16:14 2 HARD CANDY BATCH MIXER/blood draw completed Rm Mas MD [address] [place] [address],[address], [place], [address], [facility] 12/19/2021 16:59:44 2 Bladder Scan completed Rm Mas MD [address] [place] [address],[address], [place], [address], [facility] 12/19/2021 16:59:39 7 Colonoscopy completed Rm Mas MD [address] [place] [address],[address], [place], [address], [facility] 12/19/2021 16:58:49 procedure on nose completed Rm Mas MD [address] [place] [address],[address], [place], [address], [facility] 12/19/2021 16:58:21 Hernia Repair completed Rm Mas MD [address] [place] [address],[address], [place], [address], [facility] 12/19/2021 16:58:30 Imaging Results None recorded. Procedure Notes None recorded. Medical Equipment None Reported. Allergies Allergen ID Allergen Name Allergen Category Reaction Reaction Severity Criticality Documentation Date Start Date Code Code System Note Provider Name and Address Organization Details Recorded Time 400366 Substance with sulfonami de structure and antibacte rial mechanism of action (substanc e) medicatio n Not available Not available Not available 12/19/2021 23237 8003 SNOMED Rm Mas MD [address] [place] [address],[address], [place], [address], [facility] 2 16:55:44 933079 amoxicill in medicatio n Not available Not available Not available 12/19/2021 723 RxNorm Rm Mas MD [address] [place] [address],[address], [place], [address], [facility] 2 16:55:49 442170 erythromy vanda medicatio n Not available Not available Not available 12/19/2021 4053 RxNorm Rm Mas MD [address] [place] [address],[address], [place], [address], [facility] 2 16:55:54 371272 house dust allergeni c extract environme nt,medica tion Not available Not available Not available 12/19/2021 52402 9 RxNorm Rm Mas MD [address] [place] [address],[address], [place], [address], [facility] 2 16:56:12 304454 house dust mite environme nt Not available Not available Not available 12/19/2021 Rm Mas MD [address] [place] [address],[address], [place], [address], [facility] 2 16:56:17 218182 Flomax medicatio n Not available Not available Not available 12/19/2021 16419 3 RxNorm Rm Mas MD [address] [place] [address],[address], [place], [address], [facility] 2 16:56:23 922978 peanut allergeni c extract food,medi cation Not available Not available Not available 12/19/2021 11663 8 RxNorm Rm Mas MD [address] [place] [address],[address], [place], [address], [facility] 2 16:56:31 Medications Name Sig [...] active Not Available Not Available Not Available hydrocodone 5 mg-acetamin ophen 325 mg tablet active Not Available Not Available No t Available lisinopril 20 mg tablet active Not [...] Smoking Status Former Smoker Rm Mas MD [address] [place] [address],[address], [place], [address], [facility] 12/19/2021 16:58:04 What Is Your [...] adjuvanted, trivalent, PF 04/25/2017 completed Kortney reeder [facility] 04/04/2023 08:55:35 Influenza, adjuvanted, trivalent, PF 01/04/2018 completed [facility] Allar null, [facility] 04/04/2023 08:55:35 zoster recombinant 12/19/2019 completed Kortney Al lar null, [facility] 04/04/2023 08:55:35 zoster recombinant 03/11/2020 completed Kortney Al lar null, [facility] 04/04/2023 08:55:35 Influenza, adjuvanted, quadrivalent, PF 02/05/2020 completed Kortney Allar null, [facility] 04/04/2023 08:55:35 Influenza, adjuvanted, quadrivalent, PF 03/15/2021 completed Kortney Allar null, [facility] 04/04/2023 08:55:35 COVID-19, mRNA, LNP-S, PF, 100 mcg/0.5mL dose or 50 mcg/0.25mL dose 11/29/2021 completed Kortney Allar null, [facility] 04/04/2023 08:55:35 COVID-19, mRNA, LNP-S, PF, 30 mcg/0.3 mL dose 05/18/2020 completed Kortney Allar null, [facility] 04/04/2023 08:55:35 COVID-19, mRNA, LNP-S, PF, 30 mcg/0.3 mL dose 06/08/2020 completed Kortney Allar null, [facility] 04/04/2023 08:55:35 COVID-19, mRNA, LNP-S, PF, 30 mcg/0.3 mL dose 03/23/2021 completed Kortney Allar null, [facility] 04/04/2023 08:55:35 Tdap 01/11/2011 completed Kortney Allar null, [facility] 04/04/2023 08:55:35 Tdap 03/15/2021 completed Kortney Allar null, [facility] 04/04/2023 08:55:35 zoster live 03/03/2015 completed Kortney Allar null, [facility] 04/04/2023 08:55:35 Influenza, high-dose, trivalent, PF 12/24/2013 completed Kortney Allar null, [facility] 04/04/2023 08:55:35 Influenza, high-dose, trivalent, PF 01/12/2015 completed Kortney Allar null, [facility] 04/04/2023 08:55:35 Influenza, high-dose, trivalent, PF 01/18/2016 completed Kortney Allar null, [facility] 04/04/2023 08:55:35 Influenza, split virus, trivalent, preservative 01/07/2013 completed Kortney Allar null, [facility] 04/04/2023 08:55:35 Influenza, split virus, trivalent, preservative 01/11/2011 completed Kortney Allar null, [facility] 04/04/2023 08:55:35 Influenza, split virus, trivalent, preservative 01/12/2009 completed Kortney Allar null, [facility] 04/04/2023 08:55:35 Influenza, split virus, trivalent, preservative 03/23/2012 completed Kortney Allar null, [facility] 04/04/2023 08:55:35 Td (adult), 5 Lf tetanus toxoid, preservative free, adsorbed 02/02/2006 completed Kortney Allar null, [facility] 04/04/2023 08:55:35 Influenza, split virus, quadrivalent, PF 02/18/2019 completed Kortney Allar null, [facility] 04/04/2023 08:55:35 Hep A-Hep B 10/03/2018 completed Kortney Allar null, [facility] 04/04/2023 08:55:35 Hep A-Hep B 03/03/2021 completed Kortney Allar null, [facility] 04/04/2023 08:55:35 Hep A-Hep B 04/02/2020 completed Kortney Allar null, [facility] 04/04/2023 08:55:35 Influenza, adjuvanted, quadrivalent, PF 03/13/2022 completed Kortney Allar null, [facility] 04/04/2023 08:55:42 Pneumococcal conjugate PCV20, polysaccharide [id number] conjugate, adjuvant, PF 05/18/2022 completed Kortney Allar null, [facility] 04/04/2023 08:55:51 Influenza, high-dose, quadrivalent, PF 03/22/2023 completed Rm Mas MD [address] [place] [address],[address] [place] [address], [address], [facility] 01/02/2024 12:02:22 RSV, bivalent, protein subunit RSVpreF, diluent reconstituted, 0.5 mL, PF 05/23/2023 completed Rm Mas MD [address] [place] [address],[address], [address], [facility] 01/02/2024 12:02:22 Pneumococcal conjugate PCV 13 07/23/2014 completed Rm Mas MD [address] [place] [address],[address], [address], [facility] 12/19/2021 16:55:31 pneumococcal polysaccharide PPV23 12/17/2012 completed Rm Mas MD [address] [place] [address],[address], [address], [facility] 12/19/2021 16:55:31 Past Encounters Encounter ID Performer Location Encounter Start Date Encounter Closed Date Diagnosis/Indication Diagnosis SNOMED-CT Code Diagnosis ICD10 Code [id number] Rm Mas MD [facility] [address] [place] [address] 01/02/2024 11:43:10 01/07/2024 12:28:43 Lower urinary tract symptoms due to benign prostatic hypertrophy [id number] 9101 N40.1 Erectile dysfunction 860 023421 F52.21 [id number] Luis becerraro [facility] [address] [place] [address] 01/08/2024 11:53:44 01/09/2024 12:20:42 Lower urinary tract symptoms due to benign prostatic hypertrophy [id number] 9101 N40.1 Health Concerns Section Related Observation LastModified by Organization Detai ls LastModified Time None Recorded Concern Status LastModified by Organization Details LastModified Time None Recorded Payers Encounter Date Sequence Insurance Name Policy Number Policy Henry Covered Member ID Henry Member ID Guarantor Name 01/08/2024 1 [employer] (MEDICARE REPLACEMENT/A DVANTAGE - PPO) Nick Moreira [id number] Nick Moreira
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
--- OUTSIDE RECORDS SUMMARY | 2024-02-14 04:48 | XMS_ITS | Continuity of Care Document ---
Author Organization [facility], [facility] Address [address] [place] [address] Care Team Providers Care Bolt Loader Name Role Phone DOMINICK WHITMAN Primary Care [...] Details Recorded Time 4 Bladder Scan completed [facility] 01/08/2024 12:21:45 4 [place] - UroCuff completed [facility] 01/08/2024 12:23:07 4 Bladder Scan completed Rm Mas MD [address] [place] [address],[address], [address], [facility] 01/02/2024 12:04:36 4 Blood Draw/SUPERVISOR RICE M[employer]ING/PSA RESULTS completed Rm Mas MD [address] [place] [address],[address], [address], [facility] 01/02/2024 12:04:41 4 SUPERVISOR RICE M[employer]ING/blood draw completed Rm Mas MD [address] [place] [address],[address], [address], [facility] 06/20/2023 10:46:28 4 Bladder Scan completed Rm Mas MD [address] [place] [address],[address], [place], [address], [facility] 06/20/2023 10:50:58 3 Bladder Scan completed Charlie Jang [facility] 07/10/2022 11:35:14 2 Bladder Scan completed Charlie Jang [facility] 03/20/2022 10:16:14 2 SUPERVISOR RICE M[employer]ING/blood draw completed Rm Mas MD [address] [place] [address],[address], [place], [address], [facility] 12/19/2021 16:59:44 2 Bladder Scan completed Rm Mas MD [address] [place] [address],[address], [place], [address], [facility] 12/19/2021 16:59:39 7 Colonoscopy completed Rm Mas MD [address] [place] [address],[address], [place], [address], [facility] 12/19/2021 16:58:49 procedure on nose completed Rm Mas MD [address] [place] [address],[address], [place], [address], [facility] 12/19/2021 16:58:21 Hernia Repair completed Rm Mas MD [address] [place] [address],[address], [place], [address], [facility] 12/19/2021 16:58:30 Imaging Results None recorded. Procedure Notes None recorded. Medical Equipment None Reported. Allergies Allergen ID Allergen Name Allergen Category Reaction Reaction Severity Criticality Documentation Date Start Date Code Code System Note Provider Name and Address Organization Details Recorded Time 596525 Substance with sulfonami de structure and antibacte rial mechanism of action (substanc e) medicatio n Not available Not available Not available 12/19/2021 74373 8003 SNOMED Rm Mas MD [address] [place] [address],[address], [place], [address], [facility] 2 16:55:44 596229 amoxicill in medicatio n Not available Not available Not available 12/19/2021 723 RxNorm Rm Mas MD [address] [place] [address],[address], [place], [address], [facility] 2 16:55:49 273175 erythromy vanda medicatio n Not available Not available Not available 12/19/2021 4053 RxNorm Rm Mas MD [address] [place] [address],[address], [place], [address], [facility] 2 16:55:54 422876 house dust allergeni c extract environme nt,medica tion Not available Not available Not available 12/19/2021 25792 9 RxNorm Rm Mas MD [address] [place] [address],[address], [place], [address], [facility] 2 16:56:12 214799 house dust mite environme nt Not available Not available Not available 12/19/2021 Rm Mas MD [address] [place] [address],[address], [place], [address], [facility] 2 16:56:17 850431 Flomax medicatio n Not available Not available Not available 12/19/2021 45328 3 RxNorm Rm Mas MD [address] [place] [address],[address], [place], [address], [facility] 2 16:56:23 505574 peanut allergeni c extract food,medi cation Not available Not available Not available 12/19/2021 33217 8 RxNorm Rm Mas MD [address] [place] [address],[address], [place], [address], [facility] 2 16:56:31 Medications Name Sig [...] and Address Organization Details Last Updated DateTime 01/23/2024 182.88 cm 24.4 kg/m2 04257.63 g Rm Mas MD [address] [place] [address], [address] 01/23/2024 11:19:20 Social History Question Answer Notes LastModified by Organizat ion Details LastModified Time Tobacco Smoking Status Former Smoker Rm Mas MD [address] [place] [address], [address] 12/19/2021 16:58:04 What Is Your Level [...] trivalent, PF 04/25/2017 completed Kortney Allar null, [facility] 04/04/2023 08:55:35 Influenza, adjuvanted, trivalent, PF 01/04/2018 completed Kortney Allar null, [facility] 04/04/2023 08:55:35 zoster recombinant 12/19/2019 completed Kortney Al lar null, [facility] 04/04/2023 08:55:35 zoster recombinant 03/11/2020 completed Kortney Al lar null, [facility] 04/04/2023 08:55:35 Influenza, adjuvanted, quadrivalent, PF 02/05/2020 completed Kortney Allar null, [facility] 04/04/2023 08:55:35 Influenza, adjuvanted, quadrivalent, PF 03/15/2021 completed Kortney Allar null, [facility] 04/04/2023 08:55:35 COVID-19, mRNA, LNP-S, PF, 100 mcg/0.5mL dose or 50 mcg/0.25mL dose 11/29/2021 completed Kortney Allar null, [facility] 04/04/2023 08:55:35 COVID-19, mRNA, LNP-S, PF, 30 mcg/0.3 mL dose 05/18/2020 completed Kortney Allar null, [facility] 04/04/2023 08:55:35 COVID-19, mRNA, LNP-S, PF, 30 mcg/0.3 mL dose 06/08/2020 completed Kortney Allar null, [facility] 04/04/2023 08:55:35 COVID-19, mRNA, LNP-S, PF, 30 mcg/0.3 mL dose 03/23/2021 completed Kortney Allar null, [facility] 04/04/2023 08:55:35 Tdap 01/11/2011 completed Kortney Allar null, [facility] 04/04/2023 08:55:35 Tdap 03/15/2021 completed Kortney Allar null, [facility] 04/04/2023 08:55:35 zoster live 03/03/2015 completed K[facility] Allar null, [facility] 04/04/2023 08:55:35 Influenza, high-dose, trivalent, PF 12/24/2013 completed Kortney Allar null, [facility] 04/04/2023 08:55:35 Influenza, high-dose, trivalent, PF 01/12/2015 completed Kortney Allar null, [facility] 04/04/2023 08:55:35 Influenza, high-dose, trivalent, PF 01/18/2016 completed Kortney Allar null, [facility] 04/04/2023 08:55:35 Influenza, split virus, trivalent, preservative 01/07/2013 completed Kortney Allar null, [facility] 04/04/2023 08:55:35 Influenza, split virus, trivalent, preservative 01/11/2011 completed Kortney Allar null, [facility] 04/04/2023 08:55:35 Influenza, split virus, trivalent, preservative 01/12/2009 completed Kortney Allar null, [facility] 04/04/2023 08:55:35 Influenza, split virus, trivalent, preservative 03/23/2012 completed Kortney Allar null, [facility] 04/04/2023 08:55:35 Td (adult), 5 Lf tetanus toxoid, preservative free, adsorbed 02/02/2006 completed Kortney Allar null, [facility] 04/04/2023 08:55:35 Influenza, split virus, quadrivalent, PF 02/18/2019 completed Korntey Allar null, [facility] 04/04/2023 08:55:35 Hep A-Hep B 10/03/2018 completed Kortney Allar null, [facility] 04/04/2023 08:55:35 Hep A-Hep B 03/03/2021 completed Kortney Allar null, [facility] 04/04/2023 08:55:35 Hep A-Hep B 04/02/2020 completed Kortney Allar null, [facility] 04/04/2023 08:55:35 Influenza, adjuvanted, quadrivalent, PF 03/13/2022 completed Kortney reeder, [facility] 04/04/2023 08:55:42 Pneumococcal conjugate PCV20, polysaccharide ENV223 conjugate, adjuvant, PF 05/18/2022 completed Kortney reeder, [facility] 04/04/2023 08:55:51 Influenza, high-dose, quadrivalent, PF 03/22/2023 completed Rm Mas MD [address] [place] [address],[address], [address], [facility] 01/02/2024 12:02:22 RSV, bivalent, protein subunit RSVpreF, diluent reconstituted, 0.5 mL, PF 05/23/2023 completed Rm Mas MD [address] [place] [address],[address], [address], [facility] 01/02/2024 12:02:22 Pneumococcal conjugate PCV 13 07/23/2014 completed Rm Mas MD [address] [place] [address],[address], [address], [facility] 12/19/2021 16:55:31 pneumococcal polysaccharide PPV23 12/17/2012 completed Rm Mas MD [address] [place] [address],[address], [address], [facility] 12/19/2021 16:55:31 Past Encounters Encounter ID Performer Location Encounter Start Date Encounter Closed Date Diagnosis/Indication Diagnosis SNOMED-CT Code Diagnosis ICD10 Code [id number] MD [facility] [address] [place] [address] 01/02/2024 11:43:10 01/07/2024 12:28:43 Lower urinary tract symptoms due to benign prostatic hypertrophy 3470973424 9101 N40.1 Erectile dysfunction 860 119552 F52.21 [id number] Luis [facility] [address] [place] [address] 01/08/2024 11:53:44 01/09/2024 12:20:42 Lower urinary tract symptoms due to benign prostatic hypertrophy 0339181900 9101 N40.1 [id number] Rm Mas MD [facility] [address] [place] [address] 01/23/2024 11:07:19 01/25/2024 13:45:57 Lower urinary tract symptoms due to benign prostatic hypertrophy 5362272097 9101 N40.1 Erectile dysfunction 860 697905 F52.21 Health Concerns Section Related Observation LastModified by Organization Detai ls LastModified Time None Recorded Concern Status LastModified by Organization Details LastModified Time None Recorded Payers Encounter Date Sequence Insurance Name Policy Number Policy Henry Covered Member ID Henry Member ID Guarantor Name 01/23/2024 1 [employer] (MEDICARE REPLACEMENT/A DVANTAGE - PPO) Nick Moreira [id number] Nick Moreira Notes Date Note Type Note Provider Name and Address Organization Details Recorded Time 01/23/2024 text/html HPI Notes: 78 yo male with [...] He notes mild downward curve with erections. 01/02/24 - He presents for follow-up on urination. He voids every 2 hours during the day and 2-3x/night. He continues to have a slow stream. UroCuff (01/08/24) - PFS score - 30% - Obstruction - voided - 180 mL - Qmax - 4.7 mL/s. - Pcuffins - 200 cm H2O - PVR = 528 mL 01/23/24 - He presents to discuss Urocuff results. He continues to have slow stream. He voids every 1-2 hours during the day and 3-4x/night. PSA - 0.80 (12/19/09) - 0.95 (12/16/13) - 1.16 (12/07/14) - 1.09 (12/09/15) - 1.02 (02/07/17) - 1.18 (03/17/19) - 1.53 (08/22/21) - 1.7 (12/19/21) - 2.04 (01/20/22) - 1.3 (07/05/22) - 1.0 (06/20/23) - 0.84 (01/02/24) CT Urogram (12/13/15) - enlarged prostate - no stones or renal masses Rm Mas MD [address] [facility],[address], [place], [address], [place] [facility] [place] [facility] 01/24/2024 22:41:13
--- OUTSIDE RECORDS SUMMARY | 2024-02-14 04:48 | XMS_ITS | Data Portability ---
Author Organization [facility], [facility] Address [address] [place] [address] Care Team Providers Care Meat Lugger Name Role Phone DOMINICK WHITMAN Primary Care Provider Assessment No assessment recorded. Plan of Treatment Reminders Order Date Submit Date Provider Last Modified By Organization Details Last Modified Time Details Appointments PROCEDURE 2023 10:00A M [facility] C_RM_B Not available Not available Not available ESTABLISH ED 20 2023 10:00A M Rm Mas MD Not available Not available Not available Lab PSA, total, serum or plasma 2022 023 [email or web address] 0 [facility], [address], [place], [address], 07/18/2022 09:02:20 PSA, serum or plasma 2023 024 [facility], [address], [place], [address], 06/20/2023 10:46:57 PSA, serum or plasma 2023 024 [facility], [address], [place], [address], 01/02/2024 12:20:03 Referral None recorded. Procedures electromy ography studies (EMG) of anal or urethral sphincter , other than needle (PROC) 2023 024 lili Not available 01/15/2024 08:28:45 complex cystometr ogram [...] Not Available [facility] [address], [place], [address], 06/20/2023 10:46:37 01/02/20 24 01/02/2024 PSA, serum or plasm a PSA 0.84ng /mL 0-4.0 NG/mL Not Available [facility] [address], [place], [address], 01/01/2024 11:38:42 07/14/19 23 07/10/2022 bladd er scan (PROC ) No observ ation record ed. BARCODE Not Available 2022 09:06:49 Result Notes None recorded. Procedures Surgical History Date Name Laterality Status Provider Name and Address Organization Details Recorded Time 4 Bladder Scan completed [facility] 01/08/2024 12:21:45 4 [place] [facility] 01/08/2024 12:23:07 4 Bladder Scan completed Rm Mas MD [address] [place] [address],[address], [address], [facility] 01/02/2024 12:04:36 4 Blood Draw/LAST CLEANER/PSA RESULTS completed Rm Mas MD [address] [place] [address],[facility] [address], [address], [facility] 01/02/2024 12:04:41 4 LAST CLEANER/blood draw completed Rm Mas MD [address] [place] [address],[address], [place], [address], [facility] 06/20/2023 10:46:28 4 Bladder Scan completed Rm Mas MD [address] [place] [address],[address], [place], [address], [facility] 06/20/2023 10:50:58 3 Bladder Scan completed [facility] 07/10/2022 11:35:14 2 Bladder Scan completed [facility] 03/20/2022 10:16:14 2 LAST CLEANER/blood draw completed Rm Mas MD [address] [place] [address],[address], [place], [address], [facility] 12/19/2021 16:59:44 2 Bladder Scan completed Rm Mas MD [address] [place] [address],[address], [place], [address], [facility] 12/19/2021 16:59:39 7 Colonoscopy completed Rm Mas MD [address] [place] [address],[address], [place], [address], [facility] 12/19/2021 16:58:49 procedure on nose completed Rm Mas MD [address] [place] [address],[address], [place], [address], [facility] 12/19/2021 16:58:21 Hernia Repair completed Rm Mas MD [address] [place] [address],[address], [place], [address], [facility] 12/19/2021 16:58:30 Imaging Results Imaging Date Name Status LastModified by Organiz ation Details LastModified Time 07/10/2022 bladder scan (PROC) completed [facility] Information not available 07/13/2022 09:06:49 Procedure Notes None recorded. Medical Equipment None Reported. Allergies Allergen ID Allergen Name Allergen Category Reaction Reaction Severity Criticality Documentation Date Start Date Code Code System Note Provider Name and Address Organization Details Recorded Time 115662 Substance with sulfonami de structure and antibacte rial mechanism of action (substanc e) medicatio n Not available Not available Not available 12/19/2021 79707 8003 SNOMED Rm Mas MD [address] [place] [address],[address], [place], [address], [facility] 2 16:55:44 225471 amoxicill in medicatio n Not available Not available Not available 12/19/2021 723 RxNorm Rm Mas MD [address] [place] [address],[address], [place], [address], [facility] 2 16:55:49 147243 erythromy vanda medicatio n Not available Not available Not available 12/19/2021 4053 RxNorm Rm Mas MD [address] [place] [address],[address], [place], [address], [facility] 2 16:55:54 473334 house dust allergeni c extract environme nt,medica tion Not available Not available Not available 12/19/2021 30820 9 RxNorm Rm Mas MD [address] [place] [address],[address], [place], [address], [facility] 2 16:56:12 087448 house dust mite environme nt Not available Not available Not available 12/19/2021 Rm Mas MD [address] [place] [address],[address], [place], [address], [facility] 2 16:56:17 666122 Flomax medicatio n Not available Not available Not available 12/19/2021 05014 3 RxNorm Rm Mas MD [address] [place] [address],[address], [place], [address], [facility] 2 16:56:23 561432 peanut allergeni c extract food,medi cation Not available Not available Not available 12/19/2021 27460 8 RxNorm Rm Mas MD [address] [place] [address],[address], [place], [address], [facility] 2 16:56:31 Medications Name [...] Updated DateTime 07/10/2022 182.88 cm 24.1 kg/m2 14277.44 g Charlie Jang [facility] 07/10/2022 11:29:55 Date Recorded Body height Body mass index (BMI) Body weight Provider Name and Address Organization Details Last Updated DateTime 01/02/2024 182.88 cm 24.4 kg/m2 67770.63 g Rm Mas MD [address] [place] [address], [address] [place] [address] 01/02/2024 12:02:16 Date Recorded Body height Body mass index (BMI) Body weight Provider Name and Address Organization Details Last Updated DateTime 01/23/2024 182.88 cm 24.4 kg/m2 55621.63 g Rm Mas MD [address] [place] [address], [address] 01/23/2024 11:19:20 Social History Question Answer Notes LastModified by Organizat ion Details LastModified Time Tobacco Smoking Status Former Smoker Rm Mas MD [address] [place] [address], [address], [facility] 12/19/2021 16:58:04 What Is Your Level Of [...] trivalent, PF 04/25/2017 completed Kortney Allar null, [facility] 04/04/2023 08:55:35 Influenza, adjuvanted, trivalent, PF 01/04/2018 completed Kortney Allar null, [facility] 04/04/2023 08:55:35 zoster recombinant 12/19/2019 completed Kortney Al lar null, [facility] 04/04/2023 08:55:35 zoster recombinant 03/11/2020 completed Kortney Al lar null, [facility] 04/04/2023 08:55:35 Influenza, adjuvanted, quadrivalent, PF 02/05/2020 completed Kortney Allar null, [facility] 04/04/2023 08:55:35 Influenza, adjuvanted, quadrivalent, PF 03/15/2021 completed Kortney Allar null, [facility] 04/04/2023 08:55:35 COVID-19, mRNA, LNP-S, PF, 100 mcg/0.5mL dose or 50 mcg/0.25mL dose 11/29/2021 completed [facility] Allar null, [facility] 04/04/2023 08:55:35 COVID-19, mRNA, LNP-S, PF, 30 mcg/0.3 mL dose 05/18/2020 completed Kortney Allar null, [facility] 04/04/2023 08:55:35 COVID-19, mRNA, LNP-S, PF, 30 mcg/0.3 mL dose 06/08/2020 completed Kortney Allar null, [facility] 04/04/2023 08:55:35 COVID-19, mRNA, LNP-S, PF, 30 mcg/0.3 mL dose 03/23/2021 completed Kortney Allar null, [facility] 04/04/2023 08:55:35 Tdap 01/11/2011 completed Kortney Allar null, [facility] 04/04/2023 08:55:35 Tdap 03/15/2021 completed Kortney Allar null, [facility] 04/04/2023 08:55:35 zoster live 03/03/2015 completed Kortney Allar null, [facility] 04/04/2023 08:55:35 Influenza, high-dose, trivalent, PF 12/24/2013 completed Kortney Allar null, [facility] 04/04/2023 08:55:35 Influenza, high-dose, trivalent, PF 01/12/2015 completed Kortney Allar null, [facility] 04/04/2023 08:55:35 Influenza, high-dose, trivalent, PF 01/18/2016 completed Kortney Allar null, [facility] 04/04/2023 08:55:35 Influenza, split virus, trivalent, preservative 01/07/2013 completed Kortney Allar null, [facility] 04/04/2023 08:55:35 Influenza, split virus, trivalent, preservative 01/11/2011 completed Kortney Allar null, [facility] 04/04/2023 08:55:35 Influenza, split virus, trivalent, preservative 01/12/2009 completed Kortney Allar null, [facility] 04/04/2023 08:55:35 Influenza, split virus, trivalent, preservative 03/23/2012 completed Kortney Allar null, [facility] 04/04/2023 08:55:35 Td (adult), 5 Lf tetanus toxoid, preservative free, adsorbed 02/02/2006 completed Kortney Allar null, [facility] 04/04/2023 08:55:35 Influenza, split virus, quadrivalent, PF 02/18/2019 completed Kortney Allar null, [facility] 04/04/2023 08:55:35 Hep A-Hep B 10/03/2018 completed Kortney Allar null, [facility] 04/04/2023 08:55:35 Hep A-Hep B 03/03/2021 completed Kortney Allar null, [facility] 04/04/2023 08:55:35 Hep A-Hep B 04/02/2020 completed Kortney Allar null, [facility] 04/04/2023 08:55:35 Influenza, adjuvanted, quadrivalent, PF 03/13/2022 completed Kortney Allar null, [facility] 04/04/2023 08:55:42 Pneumococcal conjugate PCV20, polysaccharide [id number] conjugate, adjuvant, PF 05/18/2022 completed Kortney Allar null, [facility] 04/04/2023 08:55:51 Influenza, high-dose, quadrivalent, PF 03/22/2023 completed Rm Mas MD [address] [place] [address],[address] [place] [address], [address], [facility] 01/02/2024 12:02:22 RSV, bivalent, protein subunit RSVpreF, diluent reconstituted, 0.5 mL, PF 05/23/2023 completed Rm Mas MD [address] [place] [address],[address], [address], [facility] 01/02/2024 12:02:22 Pneumococcal conjugate PCV 13 07/23/2014 completed Rm Mas MD [address] [place] [address],[address], [address], [facility] 12/19/2021 16:55:31 pneumococcal polysaccharide PPV23 12/17/2012 completed Rm Mas MD [address], [place], [address], [place] [facility] 12/19/2021 16:55:31 Past Encounters Encounter ID Performer Location Encounter Start Date Encounter Closed Date Diagnosis/Indication Diagnosis SNOMED-CT Code Diagnosis ICD10 Code [id number] Rm Mas MD [facility] [address] [place] [address] 12/19/2021 16:17:42 12/21/2021 15:53:54 Lower urinary tract symptoms due to benign prostatic hypertrophy 1377425905 9101 N40.1 Erectile dysfunction 860 024259 F52.21 [id number] MD [facility] [address] [place] [address] 03/20/2022 09:57:48 03/22/2022 09:47:12 Lower urinary tract symptoms due to benign prostatic hypertrophy 3855201465 9101 N40.1 Erectile dysfunction 860 492380 F52.21 [id number] Rm Mas MD [facility] [address] [place] [address] 07/10/2022 11:08:57 07/13/2022 11:38:19 Lower urinary tract symptoms due to benign prostatic hypertrophy 4660877747 9101 N40.1 Erectile dysfunction 860 143640 F52.21 [id number] Rm Mas MD [facility] [address] [place] [address] 06/20/2023 10:11:21 06/20/2023 12:20:35 Lower urinary tract symptoms due to benign prostatic hypertrophy 8065873651 9101 N40.1 Erectile dysfunction 860 512548 F52.21 [id number] Rm Mas MD [facility] [address] [place] [address] 01/02/2024 11:43:10 01/07/2024 12:28:43 Lower urinary tract symptoms due to benign prostatic hypertrophy 8211438531 9101 N40.1 Erectile dysfunction 860 391414 F52.21 [id number] Luis Sloan-Jazmín fuentes [facility] [address] [place] [address] 01/08/2024 11:53:44 01/09/2024 12:20:42 Lower urinary tract symptoms due to benign prostatic hypertrophy 3747496041 9101 N40.1 [id number] Rm Mas MD [facility] [address] [place] [address] 01/23/2024 11:07:19 01/25/2024 13:45:57 Lower urinary tract symptoms due to benign prostatic hypertrophy 9421218559 9101 N40.1 Erectile dysfunction 860 672629 F52.21 Health Concerns Section Related Observation LastModified by Organization Detai ls LastModified Time None Recorded Concern Status LastModified by Organization Details LastModified Time None Recorded Advance Directives Directive None Recorded Payers Encounter Date Sequence Insurance Name Policy Number Policy Henry Covered Member ID Henry Member ID Guarantor Name 07/10/2022 1 [employer] (MEDICARE REPLACEMENT/A DVANTAGE - PPO) Nick Moreira [id number] Nick Moreira 06/20/2023 1 [employer] (MEDICARE REPLACEMENT/A DVANTAGE - PPO) Nick Moreira [id number] Nick Moreira 01/02/2024 1 [employer] (MEDICARE REPLACEMENT/A DVANTAGE - PPO) Nick Moreira [id number] Nick Moreira 01/08/2024 1 [employer] (MEDICARE REPLACEMENT/A DVANTAGE - PPO) Nick Moreira [id number] Nick Moreira 01/23/2024 1 [employer] (MEDICARE REPLACEMENT/A DVANTAGE - PPO) Nick Moreira [id number] Nick Moreira Notes Date Note Type Note Provider Name and Address Organization Details Recorded Time 07/10/2022 text/html HPI Notes: 76 yo male [...] stones or renal masses Rm Mas MD [address] [place] [address],[address], [place], [address], [place] [facility] 07/10/2022 13:35:45 06/20/2023 text/html HPI Notes: [...] stones or renal masses Rm Mas MD [address], [place], [address], [facility] 06/20/2023 11:23:55 01/02/2024 text/html HPI Notes: [...] stones or renal masses Rm Mas MD [address] [place] [address],[facility] [address], [place], [address], [place] [facility] 01/03/2024 22:33:39 01/23/2024 text/html HPI Notes: 78 yo male [...] stones or renal masses Rm Mas MD [address] [place] [address],[address], [place], [address], [facility] 01/24/2024 22:41:13
[2024-02-14 04:49] LABS: INR 2.16 (0.91-1.10); Prothrombin Time 25.7 Seconds
--- OUTSIDE RECORDS SUMMARY | 2024-02-14 04:49 | XMS_ITS | Continuity of Care Document ---
Author Organization [facility], [facility] Address [address] [place] [address] Care Team Providers Care Lease Examiner Name Role Phone WHITMANDOMINICK ALEXANDER Primary Care Provider Assessment No assessment recorded. Plan of Treatment Reminders Order Date Submit Date Provider Last Modified By Organization Details Last Modified Time Details Appointments PROCEDURE 2023 10:00A M [facility]_PRO C_RM_B Not available Not available Not available ESTABLISH ED 20 2023 10:00A M Rm Mas MD Not available Not available Not available Lab PSA, serum or plasma 2023 024 [facility], [address], [place], [address], 01/02/2024 12:20:03 Referral None recorded. Procedures electromy [...] Not Available [facility] [address], [place], [address], 01/01/2024 11:38:42 Result Notes None recorded. Procedures Surgical History Date Name Laterality Status Provider Name and Address Organization Details Recorded Time 4 [facility] 01/08/2024 12:21:45 4 [place] - Uro[facility] completed [facility]weta ero [facility] 01/08/2024 12:23:07 4 Bladder Scan completed Rm Mas MD [address] [place] [address],[address], [address], [facility] 01/02/2024 12:04:36 4 Blood Draw/BRICK BURNER HEAD/PSA RESULTS completed Rm Mas MD [address] [place] [address],[address], [address], [facility] 01/02/2024 12:04:41 4 BRICK BURNER HEAD/blood draw completed Rm Mas MD [address] [place] [address],[address], [place], [address], [facility] 06/20/2023 10:46:28 4 Bladder Scan completed Rm Mas MD [address] [place] [address],[address], [address], [facility] 06/20/2023 10:50:58 3 Bladder Scan completed Charlie Jang [facility] 07/10/2022 11:35:14 2 Bladder Scan completed Charlie Jang [facility] 03/20/2022 10:16:14 2 BRICK BURNER HEAD/blood draw completed Rm Mas MD [address] [place] [address],[address], [place], [address], [facility] 12/19/2021 16:59:44 2 Bladder Scan completed Rm Mas MD [address] [place] [address],[address], [address], [facility] 12/19/2021 16:59:39 7 Colonoscopy completed Rm Mas MD [address] [place] [address],[address], [place], [address], [facility] 12/19/2021 16:58:49 procedure on nose completed Rm Mas MD [address] [facility],[address], [place], [address], [facility] 12/19/2021 16:58:21 Hernia Repair completed Rm Mas MD [address] [place] [address],[address], [place], [address], [facility] 12/19/2021 16:58:30 Imaging Results None recorded. Procedure Notes None recorded. Medical Equipment None Reported. Allergies Allergen ID Allergen Name Allergen Category Reaction Reaction Severity Criticality Documentation Date Start Date Code Code System Note Provider Name and Address Organization Details Recorded Time 038216 Substance with sulfonami de structure and antibacte rial mechanism of action (substanc e) medicatio n Not available Not available Not available 12/19/2021 36370 8003 SNOMED Rm Mas MD [address] [place] [address],[address], [address], [facility] 2 16:55:44 108902 amoxicill in medicatio n Not available Not available Not available 12/19/2021 723 RxNorm Rm Mas MD [address] [place] [address],[address], [place], [address], [facility] 2 16:55:49 948031 erythromy vanda medicatio n Not available Not available Not available 12/19/2021 4053 RxNorm Rm Mas MD [address] [place] [address],[address], [place], [address], [facility] 2 16:55:54 505277 house dust allergeni c extract environme nt,medica tion Not available Not available Not available 12/19/2021 75355 9 RxNorm Rm Mas MD [address] [place] [address],[address], [place], [address], [facility] 2 16:56:12 572555 house dust mite environme nt Not available Not available Not available 12/19/2021 Rm Mas MD [address], [address], [facility] 2 16:56:17 677758 Flomax medicatio n Not available Not available Not available 12/19/2021 28491 3 RxNorm Rm Mas MD [address] [place] [address], [facility] 2 16:56:23 786953 peanut allergeni c extract food,medi cation Not available Not available Not available 12/19/2021 36016 8 RxNorm Rm Mas MD [address] [place] [address], [address], [facility] 2 16:56:31 Medications Name [...] Updated DateTime 01/02/2024 182.88 cm 24.4 kg/m2 30752.63 g Rm Mas MD [address] [place] [address],[address], [address] 01/02/2024 12:02:16 Social History Question Answer Notes LastModified by Organizat ion Details LastModified Time Tobacco Smoking Status Former Smoker Rm Mas MD [address] [place] [address],[address], [address], [facility] 12/19/2021 16:58:04 What Is [...] trivalent, PF 04/25/2017 completed Kortney Neves null, [facility] 04/04/2023 08:55:35 Influenza, adjuvanted, trivalent, PF 01/04/2018 completed Kortney Bowersar null, [facility] 04/04/2023 08:55:35 zoster recombinant 12/19/2019 completed Kortney Al lar null, [facility] 04/04/2023 08:55:35 zoster recombinant 03/11/2020 completed Kortney Al lar null, [facility] 04/04/2023 08:55:35 Influenza, adjuvanted, quadrivalent, PF 02/05/2020 completed Kortney Neves null, [facility] 04/04/2023 08:55:35 Influenza, adjuvanted, quadrivalent, PF 03/15/2021 completed Kortney Allar null, [facility] 04/04/2023 08:55:35 COVID-19, mRNA, LNP-S, PF, 100 mcg/0.5mL dose or 50 mcg/0.25mL dose 11/29/2021 completed Kortney Allar null, [facility] 04/04/2023 08:55:35 COVID-19, mRNA, LNP-S, PF, 30 mcg/0.3 mL dose 05/18/2020 completed Kortney Allar null, [facility] 04/04/2023 08:55:35 COVID-19, mRNA, LNP-S, PF, 30 mcg/0.3 mL dose 06/08/2020 completed Kortney Allar null, [facility] 04/04/2023 08:55:35 COVID-19, mRNA, LNP-S, PF, 30 mcg/0.3 mL dose 03/23/2021 completed Kortney Allar null, [facility] 04/04/2023 08:55:35 Tdap 01/11/2011 completed Kortney Allar null, [facility] 04/04/2023 08:55:35 Tdap 03/15/2021 completed Kortney Allar null, [facility] 04/04/2023 08:55:35 zoster live 03/03/2015 completed Kortney Allar null, [facility] 04/04/2023 08:55:35 Influenza, high-dose, trivalent, PF 12/24/2013 completed [facility]ar null, [facility] 04/04/2023 08:55:35 Influenza, high-dose, trivalent, PF 01/12/2015 completed Kortney Allar null, [facility] 04/04/2023 08:55:35 Influenza, high-dose, trivalent, PF 01/18/2016 completed Kortney Allar null, [facility] 04/04/2023 08:55:35 Influenza, split virus, trivalent, preservative 01/07/2013 completed Kortney Allar null, [facility] 04/04/2023 08:55:35 Influenza, split virus, trivalent, preservative 01/11/2011 completed Kortney Allar null, [facility] 04/04/2023 08:55:35 Influenza, split virus, trivalent, preservative 01/12/2009 completed Kortney Allar null, [facility] 04/04/2023 08:55:35 Influenza, split virus, trivalent, preservative 03/23/2012 completed Kortney Allar null, [facility] 04/04/2023 08:55:35 Td (adult), 5 Lf tetanus toxoid, preservative free, adsorbed 02/02/2006 completed Kortney Allar null, [facility] 04/04/2023 08:55:35 Influenza, split virus, quadrivalent, PF 02/18/2019 completed Kortney Allar null, [facility] 04/04/2023 08:55:35 Hep A-Hep B 10/03/2018 completed Kortney Allar null, [facility] 04/04/2023 08:55:35 Hep A-Hep B 03/03/2021 completed Kortney Allar null, [facility] 04/04/2023 08:55:35 Hep A-Hep B 04/02/2020 completed Kortney Allar null, [facility] 04/04/2023 08:55:35 Influenza, adjuvanted, quadrivalent, PF 03/13/2022 completed Kortney Allar null, [facility] 04/04/2023 08:55:42 Pneumococcal conjugate PCV20, polysaccharide [id number] conjugate, adjuvant, PF 05/18/2022 completed Kortney Allar null, [facility] 04/04/2023 08:55:51 Influenza, high-dose, quadrivalent, PF 03/22/2023 completed Rm Mas MD [address] [facility],[address], [address], [place] [facility] 01/02/2024 12:02:22 RSV, bivalent, protein subunit RSVpreF, diluent reconstituted, 0.5 mL, PF 05/23/2023 completed Rm Mas MD [address] [facility],[address], [address], [facility] 01/02/2024 12:02:22 Pneumococcal conjugate PCV 13 07/23/2014 completed Rm Mas MD [address] [facility] [address], [place], [address], [facility] 12/19/2021 16:55:31 pneumococcal polysaccharide PPV23 12/17/2012 completed Rm Mas MD [address] [facility],[address], [place], [address], [facility] 12/19/2021 16:55:31 Past Encounters Encounter ID Performer Location Encounter Start Date Encounter Closed Date Diagnosis/Indication Diagnosis SNOMED-CT Code Diagnosis ICD10 Code [id number] Rm Mas MD [facility] [address] [place] [address] 01/02/2024 11:43:10 01/07/2024 12:28:43 Lower urinary tract symptoms due to benign prostatic hypertrophy [id number] 9101 N40.1 Erectile dysfunction 860 713562 F52.21 Health Concerns Section Related Observation LastModified by Organization Detai ls LastModified Time None Recorded Concern Status LastModified by Organization Details LastModified Time None Recorded Payers Encounter Date Sequence Insurance Name Policy Number Policy Henry Covered Member ID Henry Member ID Guarantor Name 01/02/2024 1 [employer] (MEDICARE REPLACEMENT/A DVANTAGE - PPO) Nick Moreira [id number] Nick Moreira Notes Date Note Type Note [...] or renal masses Rm Mas MD [address] [facility],[address], [place], [address], [facility] 01/03/2024 22:33:39
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
[2024-02-14] MEDS: MORPHINE 2 MG/ML inj IVP (05:11)
[2024-02-14] MEDS: ONDANSETRON 2 MG/ML inj 8 MG IVP (05:12)
[2024-02-14] MEDS: LABETALOL HCL 5 MG/ML inj IVP (05:16)
== END 2024-02-14 05:21 | disposition short-term general hospital (02) ==
PROVIDERS: Emergency Provider Family Medicine; PCP Family Medicine
DX: S06.5XAA Traumatic subdural hemorrhage with loss of consciousness status unknown, initial encounter (principal); I48.20 Chronic atrial fibrillation, unspecified; V49.9XXA Car occupant (driver) (passenger) injured in unspecified traffic accident, initial encounter; Z79.01 Long term (current) use of anticoagulants
CPT/HCPCS: 36415; 70450; 85610; 94761; 96374; 96375; 99284; 99285; 99291; J2270; J2405; J7168

== ENCOUNTER 2024-02-14 05:09 | Outpatient (CLI) | payer OTHER, SELFPAY ==
--- OUTSIDE RECORDS SUMMARY | 2024-02-20 18:11 | XMS_ITS | Data Portability ---
Author Organization [facility], [facility] Address [address] [place] [address] Care Team Providers Care Bobcat Driver/Labor Name Role Phone DOMINICK WHITMAN Primary Care Provider [phone] Assessment No assessment recorded. Plan of Treatment Reminders Order Date Submit Date Provider Last Modified By Organization Details Last Modified Time Details Appointments ESTABLISH ED 2023 11:00A M Rm Mas MD Not available Not available Not available PROCEDURE 20 2023 11:00A M EDINA_PRO C_RM_B Not available Not available Not available Lab PSA, total, serum or plasma 2022 023 [email or web address] 0 [facility], [address], [place], [address], 07/18/2022 09:02:20 PSA, serum or plasma 2023 024 [facility], [address], [place], [address], 06/20/2023 10:46:57 PSA, serum or plasma 2023 024 [facility], [address], [place], [address], 01/02/2024 12:20:03 Referral None recorded. Procedures electromy [...] Not Available [facility] [address], [place], [address], 06/20/2023 10:46:37 01/02/2001/02/2024 PSA, serum or plasm a PSA 0.84ng /mL 0-4.0 NG/mL Not Available [facility] [address], [place], [address], 01/01/2024 11:38:42 07/14/19 23 07/10/2022 bladd er scan (PROC ) No observ ation record ed. BARCODE Not Available 2022 09:06:49 Result Notes None recorded. Procedures Surgical History Date Name Laterality Status Provider Name and Address Organization Details Recorded Time 4 [facility] 01/08/2024 12:21:45 4 [place] [facility] 01/08/2024 12:23:07 4 Bladder Scan completed Rm Mas MD [address] [place] [address],[address], [address], [facility] 01/02/2024 12:04:36 4 Blood Draw/SOLE STAINER/PSA RESULTS completed Rm Mas MD [address] [place] [address],[address], [address], [facility] 01/02/2024 12:04:41 4 SOLE STAINER/blood draw completed Rm Mas MD [address] [place] [address],[address], [place], [address], [facility] 06/20/2023 10:46:28 4 Bladder Scan completed Rm Mas MD [address] [place] [address],[address], [place], [address], [facility] 06/20/2023 10:50:58 3 Bladder Scan completed Charlie [facility] 07/10/2022 11:35:14 2 Bladder Scan completed Charlie Jang [facility] 03/20/2022 10:16:14 2 SOLE STAINER/blood draw completed Rm Mas MD [address] [place] [address],[address], [place], [address], [facility] 12/19/2021 16:59:44 2 Bladder Scan completed Rm Mas MD [address] [place] [address],[address], [place], [address], [facility] 12/19/2021 16:59:39 7 Colonoscopy completed Rm Mas MD [address] [place] [address],[address], [place], [address], [facility] 12/19/2021 16:58:49 procedure on nose completed Rm Mas MD [address] [place] [address],[address], [place], [address], [facility] 12/19/2021 16:58:21 Hernia Repair completed Rm Mas MD [address] [place] [address],[address], [place], [address], [facility] 12/19/2021 16:58:30 Imaging Results Imaging Date Name Status LastModified by Organiz ation Details LastModified Time 07/10/2022 bladder scan (PROC) completed [facility] Information not available 07/13/2022 09:06:49 Procedure Notes None recorded. Medical Equipment None Reported. Allergies Allergen ID Allergen Name Allergen Category Reaction Reaction Severity Criticality Documentation Date Start Date Code Code System Note Provider Name and Address Organization Details Recorded Time 398876 Substance with sulfonami de structure and antibacte rial mechanism of action (substanc e) medicatio n Not available Not available Not available 12/19/2021 76394 8003 SNOMED Rm Mas MD [address] [place] [address],[address], [place], [address], [facility] 2 16:55:44 718969 amoxicill in medicatio n Not available Not available Not available 12/19/2021 723 RxNorm Rm Mas MD [address] [place] [address],[address], [place], [address], [facility] 2 16:55:49 213779 erythromy vanda medicatio n Not available Not available Not available 12/19/2021 4053 RxNorm Rm Mas MD [address] [place] [address],[address], [place], [address], [facility] 2 16:55:54 712854 house dust allergeni c extract environme nt,medica tion Not available Not available Not available 12/19/2021 06918 9 RxNorm Rm Mas MD [address] [place] [address],[address], [place], [address], [facility] 2 16:56:12 664498 house dust mite environme nt Not available Not available Not available 12/19/2021 Rm Mas MD [address] [place] [address],[address], [place], [address], [facility] 2 16:56:17 314233 Flomax medicatio n Not available Not available Not available 12/19/2021 27028 3 RxNorm Rm Mas MD [address] [place] [address],[address], [place], [address], [facility] 2 16:56:23 588336 peanut allergeni c extract food,medi cation Not available Not available Not available 12/19/2021 13831 8 RxNorm Rm Mas MD [address] [place] [address],[address], [place], [address], [facility] 16:56:31 Medications Name Sig Start Date Stop [...] Updated DateTime 07/10/2022 182.88 cm 24.1 kg/m2 52057.44 g Charlie Jang [facility] 07/10/2022 11:29:55 Date Recorded Body height Body mass index (BMI) Body weight Provider Name and Address Organization Details Last Updated DateTime 01/02/2024 182.88 cm 24.4 kg/m2 53850.63 g Rm Mas MD [address] [place] [address],[address], [address] [place] [address] 01/02/2024 12:02:16 Date Recorded Body height Body mass index (BMI) Body weight Provider Name and Address Organization Details Last Updated DateTime 01/23/2024 182.88 cm 24.4 kg/m2 35292.63 g Rm Mas MD [address] [place] [address],[address], [address] 01/23/2024 11:19:20 Social History Question Answer Notes LastModified by Organizat ion Details LastModified Time Tobacco Smoking Status Former Smoker Rm Mas MD [address] [place] [address],[address], [address], [facility] 12/19/2021 16:58:04 What Is Your Level Of Alcohol Consumption? None Information not available 12/19/2021 What Is Your Level Of Caffeine Consumption? Occasional Information not available 12/19/2021 Are You Currently Employed? No Information not available 03/20/2022 When Did You Quit Smoking? 16+yearssincel astcigabriela Information not available 12/19/2021 Recreational Drug Use [...] trivalent, PF 04/25/2017 completed Kortney Allar null, [facility] 04/04/2023 08:55:35 Influenza, adjuvanted, trivalent, PF 01/04/2018 completed Kortney Allar null, [facility] 04/04/2023 08:55:35 zoster recombinant 12/19/2019 completed Kortney Al lar null, [facility] 04/04/2023 08:55:35 zoster recombinant 03/11/2020 completed Kortney Al lar null, [facility] 04/04/2023 08:55:35 Influenza, adjuvanted, quadrivalent, PF 02/05/2020 completed Kortney Allar null, [facility] 04/04/2023 08:55:35 Influenza, adjuvanted, quadrivalent, PF 03/15/2021 completed Kortney Allar null, [facility] 04/04/2023 08:55:35 COVID-19, mRNA, LNP-S, PF, 100 mcg/0.5mL dose or 50 mcg/0.25mL dose 11/29/2021 completed [facility] Allar null, [facility] 04/04/2023 08:55:35 COVID-19, mRNA, LNP-S, PF, 30 mcg/0.3 mL dose 05/18/2020 completed Kortney Allar null, [facility] 04/04/2023 08:55:35 COVID-19, mRNA, LNP-S, PF, 30 mcg/0.3 mL dose 06/08/2020 completed Kortney Allar null, [facility] 04/04/2023 08:55:35 COVID-19, mRNA, LNP-S, PF, 30 mcg/0.3 mL dose 03/23/2021 completed Kortney Allar null, [facility] 04/04/2023 08:55:35 Tdap 01/11/2011 completed Kortney Allar null, [facility] 04/04/2023 08:55:35 Tdap 03/15/2021 completed Kortney Allar null, [facility] 04/04/2023 08:55:35 zoster live 03/03/2015 completed Kortney Allar null, [facility] 04/04/2023 08:55:35 Influenza, high-dose, trivalent, PF 12/24/2013 completed Kortney Allar null, [facility] 04/04/2023 08:55:35 Influenza, high-dose, trivalent, PF 01/12/2015 completed Kortney Allar null, [facility] 04/04/2023 08:55:35 Influenza, high-dose, trivalent, PF 01/18/2016 completed Kortney Allar null, [facility] 04/04/2023 08:55:35 Influenza, split virus, trivalent, preservative 01/07/2013 completed Kortney Allar null, [facility] 04/04/2023 08:55:35 Influenza, split virus, trivalent, preservative 01/11/2011 completed Kortney Allar null, [facility] 04/04/2023 08:55:35 Influenza, split virus, trivalent, preservative 01/12/2009 completed Kortney Allar null, [facility] 04/04/2023 08:55:35 Influenza, split virus, trivalent, preservative 03/23/2012 completed Kortney Allar null, [facility] 04/04/2023 08:55:35 Td (adult), 5 Lf tetanus toxoid, preservative free, adsorbed 02/02/2006 completed Kortney Allar null, [facility] 04/04/2023 08:55:35 Influenza, split virus, quadrivalent, PF 02/18/2019 completed Kortney Allar null, [facility] 04/04/2023 08:55:35 Hep A-Hep B 10/03/2018 completed Kortney Allar null, [facility] 04/04/2023 08:55:35 Hep A-Hep B 03/03/2021 completed Kortney Allar null, [facility] 04/04/2023 08:55:35 Hep A-Hep B 04/02/2020 completed Kortney Allar null, [facility] 04/04/2023 08:55:35 Influenza, adjuvanted, quadrivalent, PF 03/13/2022 completed Kortney Allar null, [facility] 04/04/2023 08:55:42 Pneumococcal conjugate PCV20, polysaccharide [id number] conjugate, adjuvant, PF 05/18/2022 completed Kortney Allar null, [facility] 04/04/2023 08:55:51 Influenza, high-dose, quadrivalent, PF 03/22/2023 completed Rm Mas MD [address] [place] [address],[address], [address], [facility] 01/02/2024 12:02:22 RSV, bivalent, protein subunit RSVpreF, diluent reconstituted, 0.5 mL, PF 05/23/2023 completed Rm Mas MD [address] [place] [address],[address], [address], [facility] 01/02/2024 12:02:22 Pneumococcal conjugate PCV 13 07/23/2014 completed Rm Mas MD [address] [place] [address],[address], [address], [facility] 12/19/2021 16:55:31 pneumococcal polysaccharide PPV23 12/17/2012 completed Rm Mas MD [address], [place], [address], [facility] 12/19/2021 16:55:31 Past Encounters Encounter ID Performer Location Encounter Start Date Encounter Closed Date Diagnosis/Indication Diagnosis SNOMED-CT Code Diagnosis ICD10 Code [id number] Rm Mas MD [facility] [address] [place] [address] 12/19/2021 16:17:42 12/21/2021 15:53:54 Lower urinary tract symptoms due to benign prostatic hypertrophy 6115403660 9101 N40.1 Erectile dysfunction 860 953998 F52.21 [id number] Rm Mas MD [facility] [address] [place] [address] 03/20/2022 09:57:48 03/22/2022 09:47:12 Lower urinary tract symptoms due to benign prostatic hypertrophy 4258847150 9101 N40.1 Erectile dysfunction 860 907549 F52.21 [id number] Rm Mas MD [facility] [address] [place] [address] 07/10/2022 11:08:57 07/13/2022 11:38:19 Lower urinary tract symptoms due to benign prostatic hypertrophy 6157395106 9101 N40.1 Erectile dysfunction 860 928804 F52.21 [id number] Rm Mas MD [facility] [address] [place] [address] 06/20/2023 10:11:21 06/20/2023 12:20:35 Lower urinary tract symptoms due to benign prostatic hypertrophy 1399470692 9101 N40.1 Erectile dysfunction 860 695310 F52.21 [id number] Rm Mas MD [facility] [address] [place] [address] 01/02/2024 11:43:10 01/07/2024 12:28:43 Lower urinary tract symptoms due to benign prostatic hypertrophy 9127598796 9101 N40.1 Erectile dysfunction 860 780420 F52.21 [id number] Luis fuentes [facility] [address] [place] [address] 01/08/2024 11:53:44 01/09/2024 12:20:42 Lower urinary tract symptoms due to benign prostatic hypertrophy 3340714155 9101 N40.1 [id number] Rm Mas MD [facility] [address] [address] 01/23/2024 11:07:19 01/25/2024 13:45:57 Lower urinary tract symptoms due to benign prostatic hypertrophy 6814960901 9101 N40.1 Erectile dysfunction 860 362580 F52.21 Health Concerns Section Related Observation LastModified by Organization Detai ls LastModified Time None Recorded Concern Status LastModified by Organization Details LastModified Time None Recorded Advance Directives Directive None Recorded Payers Encounter Date Sequence Insurance Name Policy Number Policy Henry Covered Member ID Henry Member ID Guarantor Name 07/10/2022 1 [employer] (MEDICARE REPLACEMENT/A DVANTAGE - PPO) Nick Moreira [id number] Nick Moreira 06/20/2023 1 [employer] (MEDICARE REPLACEMENT/A DVANTAGE - PPO) Nick Moreira [id number] Nick Moreira 01/02/2024 1 [employer] (MEDICARE REPLACEMENT/A DVANTAGE - PPO) Nick Moreira [id number] Nick Moreira 01/08/2024 1 [employer] (MEDICARE REPLACEMENT/A DVANTAGE - PPO) Nick Moreira [id number] Nick Moreira 01/23/2024 1 [employer] (MEDICARE REPLACEMENT/A DVANTAGE - PPO) Nick Moreira [id number] Nick Moreira Notes Date Note Type Note [...] stones or renal masses Rm Mas MD [address], [place], [address], [facility] 07/10/2022 13:35:45 06/20/2023 text/html HPI Notes: [...] or renal masses Rm Mas MD [address] [place] [address],[address], [place], [address], [facility] 06/20/2023 11:23:55 01/02/2024 text/html HPI Notes: [...] stones or renal masses Rm Mas MD [address] [place], [place] [address], [place], [address], [facility] 01/03/2024 22:33:39 01/23/2024 text/html HPI Notes: [...] or renal masses Rm Mas MD [address] [place] [address],[address], [place], [address], [facility] 01/24/2024 22:41:13
--- OUTSIDE RECORDS SUMMARY | 2024-02-20 18:11 | XMS_ITS | Clinical Summary ---
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 Assessment: pharynx clear, atraumatic and dentition unchanged Secured at: 23 Difficulty: 0 (not difficult) Brendan Simon CRNA ANESTHESIA PX N OTE ORDERABLES * EKG 12 LEAD (02/14/2024 6:29 AM CDT) Interpretation Sinus rhythm with marked sinus arrhythmia Otherwise normal ECG No previous ECGs available BEYOND NOW Ventricular Rate 80 BPM BEYOND NOW Atrial Rate 79 BPM BEYOND NOW P-R Interval 128 ms BEYOND NOW QRS Duration 86 ms BEYOND NOW QT 386 ms BEYOND NOW QTc 445 ms BEYOND NOW P [place] degrees BEYOND NOW R [place] -1 degrees BEYOND NOW T [place] 53 degrees BEYOND NOW 02/14/2024 6:29 AM CDT 02/14/2024 11:06 PM CDT Alan Jaimes MD EKG ORD BEYOND NOW [place], [place] * (ABNORMAL) CBC WITH AUTO DIFFERENTIAL (02/14/2024 6:28 AM CDT) Pathologist [facility] WHITE BLOOD COUNT 10.5 4.5 - 11.0 thou/cu mm 02/14/2024 6:43 AM CDT [facility] RED BLOOD COUNT 4.78 4.30 - 5.90 mil/cu mm 02/14/2024 6:43 AM CDT [facility] HEMOGLOBIN 14.2 13.5 - 17.5 g/dL 02/14/2024 6:43 AM CDT [facility] HEMATOCRIT 41.4 37.0 - 53.0 % 02/14/2024 6:43 AM CDT [facility] MCV 87 80 - 100 fL 02/14/2024 6:43 AM CDT [facility] MCH 29.7 26.0 - 34.0 pg 02/14/2024 6:43 AM CDT [facility] MCHC 34.3 32.0 - 36.0 g/dL 02/14/2024 6:43 AM CDT [facility] RDW 13.2 11.5 - 15.5 % 02/14/2024 6:43 AM CDT [facility] PLATELET COUNT 200 140 - 440 thou/cu mm 02/14/2024 6:43 AM CDT [facility] MPV 10.5 6.5 - 11.0 fL 02/14/2024 6:43 AM [facility] NRBC 0.0 % 02/14/2024 6:43 AM [facility] ABS NRBC 0.0 thou /cu mm 02/14/2024 6:43 AM [facility] % NEUT 85.2 % 02/14/2024 6:43 AM [facility] % LYMPH 7.5 % 02/14/2024 6:43 AM [facility] % MONO 5.6 % 02/14/2024 6:43 AM [facility] % EOS 0.7 % 02/14/2024 6:43 AM [facility] % BASO 0.4 % 02/14/2024 6:43 AM [facility] % IMMATURE GRAN (METAS,MYELOS,IL OS) 0.6 % 02/14/2024 6:43 AM [facility] ABSOLUTE NEUTROPHILS 8.9(H) 1.7 - 7.0 thou/cu mm 02/14/2024 6:43 AM [facility] ABSOLUTE LYMPHOCYTES 0.8(L) 0.9 - 2.9 thou/cu mm 02/14/2024 6:43 AM [facility] ABSOLUTE MONOCYTES 0.6 <0.9 thou/cu mm 02/14/2024 6:43 AM [facility] ABSOLUTE EOSINOPHILS 0.1 <0.5 thou/cu mm 02/14/2024 6:43 AM [facility] ABSOLUTE BASOPHILS 0.0 <0.3 thou/cu mm 02/14/2024 6:43 AM [facility] ABSOLUTE IMMATURE GRANULOCYTES(MET ,MYELOS,PROS) 0.1 <0.3 thou/cu mm 02/14/2024 6:43 AM CDT [facility] Blood BLOOD SPECIMEN / Unknown Non-Lab Venipuncture / Unknown 02/14/2024 6:28 AM CDT 02/14/2024 6:35 AM CDT Alan Jaimes MD HEMATOLOGY Performing Organization Address [facility] Co de Phone Number [facility] [address] [place] [address], * Magnesium (02/14/2024 6:28 AM CDT) MAGNESIUM 1.9 1.6 - 2.4 mg/dL 02/14/2024 7:11 AM CDT [facility] Blood BLOOD SPECIMEN / Unknown Non-Lab Venipuncture / Unknown 02/14/2024 6:28 AM CDT 02/14/2024 6:35 AM CDT Alan Jaimes MD CHEMISTRY Performing Organization Address [facility] de Phone Number [facility] [address] [place] [address], * SCAN-CARDIAC STRIP (02/14/2024 12:00 AM CDT) Narrative 02/14/2024 12:00 AM CDT Ordered by an unspecified provider. Other Clinical Staff OTHER * XR SHOULDER 3 VIEWS RIGHT (02/08/2024 9:13 AM CDT) Anatomical Region Laterality Modality SHOULDERS, SHOULDER R Computed R adiography 02/09/2024 10:2 3 AM CDT Narrative 02/09/2024 10:23 AM CDT For Patients: ??As a result of the 21st Century Cures Act, medical imaging exams and [...] 10:23:27 AM (Electronically Signed) Procedure Note Adriano Oliver DO - 02/09/2024 For Patients: As a [...] Starr MD GENERAL IMAGIN G * (ABNORMAL) INR,POCT (01/31/2024 9:41 AM CDT) Only the most recent of2 resultswithin the time period is included. INR 3.8(H) ratio [facility] Comment: INRs >2.9 may be falsely elevated [...] PROTHROMBIN TIMEP 45.3(H) 10.5 - 13.[address] [facility] Comment: Point of care fingerstick Prothrombin Time/INR results may vary from venous Prothrombin Time/INR methodologies. Any results exhibiting inconsistency with the patient's clinical status should be repeated using a venous Prothrombin Time/INR method. Blood BLOOD SPECIMEN / Unknown 01/31/2024 9:41 AM CDT 01/31/2024 9:42 AM CDT Jarad Starr MD LABORATORY [facility] [address] [place] [address], [facility] [address] [place] [address] * SCAN-CT INTERPRETATION (01/13/2024 12:00 AM CDT) [...] Signed) Irene MCALLISTER CT * ANTI HCV [56835.2] (01/18/2016 9:33 AM CDT) HEPATITIS C ANTIBODY Non-Reacti ve Non-Reacti ve 01/18/2016 6:57 PM CDT [facility] Blood BLOOD SPECIMEN / Unknown Venipuncture / Unknown 01/18/2016 9:33 AM CDT 01/18/2016 9:33 AM CDT Narrative [facility] - 01/18/2016 6:57 PM CDT Antibodies to HCV not detected; does not exclude the possibility of exposure to HCV. Jarad Starr MD SEND OUTS [facility] [address] [place] [address], from Last 3 Months or Most Recently Relevant to Health Maintenance Advance Directives Documents on File Type Date Recorded Patient Track Template Maker Expl anation Healthcare Directive 05/28/2017 7:30 AM 2-1 1-13 Healthcare Directive 06/14/2012 * Full Code (Latest Code Status on File) Date Activated Date Inactivated Comments 02/15/2024 3:32 PM 02/19/2024 5:12 PM Question Answer Comments Code Status Discussion: Reviewed Preferences * Full Code Date Activated Date Inactivated Comments 02/14/2024 6:13 AM 02/15/2024 3:32 PM Question Answer Comments Code Status Discussion: Unable to Assess Preferences, Provider to review later * Full Code Date Activated Date Inactivated Comments 03/21/2013 9:29 AM 03/21/2013 5:10 PM Care Teams Fan Blade Truer Relationship Specialty Start Date End Date Jarad Starr MD [address] [place] [address] PCP - General Family Practice 12/17/12
--- OUTSIDE RECORDS SUMMARY | 2024-02-20 18:11 | XMS_ITS | Continuity of Care Document ---
Author Organization [facility] Address [address] [place] [address] Care Team Providers Care Broomcorn Grader Name Role Phone DOMINICK WHITMAN Primary Care Provider Assessment No assessment recorded. Plan of Treatment Reminders Order Date Submit Date Provider Last Modified By Organization Details Last Modified Time Details Appointments ESTABLISH ED 20 2023 11:00A M Rm Mas MD Not [...] Details Recorded Time 4 Bladder Scan completed [facility] 01/08/2024 12:21:45 4 Downey - UroCuff completed [facility] 01/08/2024 12:23:07 4 Bladder Scan completed Rm Mas MD [address] [place] [address],[address] [place] [address], [phone], [facility] 01/02/2024 12:04:36 4 Blood Draw/FIREWORKS MAKER/PSA RESULTS completed Rm Mas MD [address] [place] [address],[address], [address], [facility] 01/02/2024 12:04:41 4 FIREWORKS MAKER/blood draw completed Rm Mas MD [address] [place] [address],[address], [address], [facility] 06/20/2023 10:46:28 4 Bladder Scan completed Rm Mas MD [address] [place] [address],[facility] [address], [place], [address], [facility] 06/20/2023 10:50:58 3 [facility] 07/[facility]/2022 11:35:14 2 Bladder Scan completed [facility] 03/20/2022 10:16:14 2 FIREWORKS MAKER/blood draw completed Rm Mas MD [address] [place] [address],[address], [address], [facility] 12/19/2021 16:59:44 2 Bladder Scan completed Rm Mas MD [address] [place] [address],[address], [address], [facility] 12/19/2021 16:59:39 7 Colonoscopy completed Rm Mas MD [address] [place] [address],[address], [place], [address], [facility] 12/19/2021 16:58:49 procedure on nose completed Rm Mas MD [address] [place] [address],[address], [place], [address], [facility] 12/19/2021 16:58:21 Hernia Repair completed Rm Mas MD [address] [place] [address],[address] [facility], [place], [address], [facility] 12/19/2021 16:58:30 Imaging Results None recorded. Procedure Notes None recorded. Medical Equipment None Reported. Allergies Allergen ID Allergen Name Allergen Category Reaction Reaction Severity Criticality Documentation Date Start Date Code Code System Note Provider Name and Address Organization Details Recorded Time 424081 Substance with sulfonami de structure and antibacte rial mechanism of action (substanc e) medicatio n Not available Not available Not available 12/19/2021 00148 8003 SNOMED Rm Mas MD [address] [place] [address],[address] [place] [address], [phone], [facility] 2 16:55:44 [id number] amoxicill in medicatio n Not available Not available Not available 12/19/2021 723 RxNorm Rm Mas MD [address] [place] [address],[address] [place] [address], [phone], [facility] 2 16:55:49 037692 erythromy vanda medicatio n Not available Not available Not available 12/19/2021 4053 RxNorm Rm Mas MD [address] [place], [place] [address] [place] [address], [phone], [facility] 2 16:55:54 [id number] house dust allergeni c extract environme nt,medica tion Not available Not available Not available 12/19/2021 81171 9 RxNorm Rm Mas MD [address] [place] [address],[address] [place] [address], [address], [facility] 2 16:56:12 483399 house dust mite environme nt Not available Not available Not available 12/19/2021 Rm Mas MD [address] [place] [address],[address] [place] [address], [address], [facility] 2 16:56:17 511534 Flomax medicatio n Not available Not available Not available 12/19/2021 53260 3 RxNorm Rm Mas MD [address] [place] [address],[address] [place] [address], [phone], [facility] 2 16:56:23 474158 peanut allergeni c extract food,medi cation Not available Not available Not available 12/19/2021 12242 8 RxNorm Rm Mas MD [address] [place] [address],[address] [place] [address], [phone], [facility] 2 16:56:31 Medications Name Sig [...] Updated DateTime 01/23/2024 182.88 cm 24.4 kg/m2 37166.63 g Rm Mas MD [address] [place] [address], [phone] [place] [address] Urology 01/23/2024 11:19:20 Social History Question Answer Notes LastModified by Organizat ion Details LastModified Time Tobacco Smoking Status Former Smoker Rm Mas MD [address] [place] [address],[address] [phone] [place] [address] Urology 12/19/2021 16:58:04 What Is Your Level [...] trivalent, PF 04/25/2017 completed Kortney Allar null, [facility] 04/04/2023 08:55:35 Influenza, adjuvanted, trivalent, PF 01/04/2018 completed Kortney Allar null, [facility] 04/04/2023 08:55:35 zoster recombinant 12/19/2019 completed Kortney Al lar null, [facility] 04/04/2023 08:55:35 zoster recombinant 03/11/2020 completed Kortney Al lar null, [facility] 04/04/2023 08:55:35 Influenza, adjuvanted, quadrivalent, PF 02/05/2020 completed Kortney Allar null, [facility] 04/04/2023 08:55:35 Influenza, adjuvanted, quadrivalent, PF 03/15/2021 completed Kortney Allar null, [facility] 04/04/2023 08:55:35 COVID-19, mRNA, LNP-S, PF, 100 mcg/0.5mL dose or 50 mcg/0.25mL dose 11/29/2021 completed Kortney Allar null, [facility] 04/04/2023 08:55:35 COVID-19, mRNA, LNP-S, PF, 30 mcg/0.3 mL dose 05/18/2020 completed Kortney Allar null, [facility] 04/04/2023 08:55:35 COVID-19, mRNA, LNP-S, PF, 30 mcg/0.3 mL dose 06/08/2020 completed Kortney Allar null, [facility] 04/04/2023 08:55:35 COVID-19, mRNA, LNP-S, PF, 30 mcg/0.3 mL dose 03/23/2021 completed Kortney Allar null, [facility] 04/04/2023 08:55:35 Tdap 01/11/2011 completed Kortney Allar null, [facility] 04/04/2023 08:55:35 Tdap 03/15/2021 completed Kortney Allar null, [facility] 04/04/2023 08:55:35 zoster live 03/03/2015 completed Kortney Allar null, [facility] 04/04/2023 08:55:35 Influenza, high-dose, trivalent, PF 12/24/2013 completed Kortney Allar null, [facility] 04/04/2023 08:55:35 Influenza, high-dose, trivalent, PF 01/12/2015 completed Kortney Allar null, [facility] 04/04/2023 08:55:35 Influenza, high-dose, trivalent, PF 01/18/2016 completed Kortney Allar null, [facility] 04/04/2023 08:55:35 Influenza, split virus, trivalent, preservative 01/07/2013 completed Kortney Allar null, [facility] 04/04/2023 08:55:35 Influenza, split virus, trivalent, preservative 01/11/2011 completed Kortney Allar null, [facility] 04/04/2023 08:55:35 Influenza, split virus, trivalent, preservative 01/12/2009 completed Kortney Allar null, [facility] 04/04/2023 08:55:35 Influenza, split virus, trivalent, preservative 03/23/2012 completed Kortney Allar null, [facility] 04/04/2023 08:55:35 Td (adult), 5 Lf tetanus toxoid, preservative free, adsorbed 02/02/2006 completed Kortney Allar null, [facility] 04/04/2023 08:55:35 Influenza, split virus, quadrivalent, PF 02/18/2019 completed Kortney Allar null, [facility] 04/04/2023 08:55:35 Hep A-Hep B 10/03/2018 completed Kortney Allar null, [facility] 04/04/2023 08:55:35 Hep A-Hep B 03/03/2021 completed Kortney Allar null, [facility] 04/04/2023 08:55:35 Hep A-Hep B 04/02/2020 completed Kortney Allar null, [facility] 04/04/2023 08:55:35 Influenza, adjuvanted, quadrivalent, PF 03/13/2022 completed Kortney reeder, [facility] 04/04/2023 08:55:42 Pneumococcal conjugate PCV20, polysaccharide LPU401 conjugate, adjuvant, PF 05/18/2022 completed Kortney reedre, [facility] 04/04/2023 08:55:51 Influenza, high-dose, quadrivalent, PF 03/22/2023 completed Rm Mas MD [address] [place] [address],[address], [place], [address], [facility] 01/02/2024 12:02:22 RSV, bivalent, protein subunit RSVpreF, diluent reconstituted, 0.5 mL, PF 05/23/2023 completed Rm Mas MD [address] [place] [address],[address], [place], [address], [facility] 01/02/2024 12:02:22 Pneumococcal conjugate PCV 13 07/23/2014 completed Rm Mas MD [address] [place] [address],[address], [place], [address], [facility] 12/19/2021 16:55:31 pneumococcal polysaccharide PPV23 12/17/2012 completed Rm Mas MD [address] [place] [address],[facility] [address], [address], [facility] 12/19/2021 16:55:31 Past Encounters Encounter ID Performer Location Encounter Start Date Encounter Closed Date Diagnosis/Indication Diagnosis SNOMED-CT Code Diagnosis ICD10 Code [id number] MD INGA Gómez_Ana María [address] [place] [address] 01/02/2024 11:43:10 01/07/2024 12:28:43 Lower urinary tract symptoms due to benign prostatic hypertrophy [id number] 9101 N40.1 Erectile dysfunction 860 [id number] F52.21 [id number] Luis [facility] [address] [place] [address] 01/08/2024 11:53:44 01/09/2024 12:20:42 Lower urinary tract symptoms due to benign prostatic hypertrophy [id number] 9101 N40.1 [id number] Rm Mas MD [facility] [address] [place] [phone] 01/23/2024 11:07:19 01/25/2024 13:45:57 Lower urinary tract symptoms due to benign prostatic hypertrophy [id number] 9101 N40.1 Erectile dysfunction 860 349988 F52.21 Health Concerns Section Related Observation LastModified by Organization Detai ls LastModified Time None Recorded Concern Status LastModified by Organization Details LastModified Time None Recorded Payers Encounter Date Sequence Insurance Name Policy Number Policy Henry Covered Member ID Henry Member ID Guarantor Name 01/23/2024 1 [employer] (MEDICARE REPLACEMENT/A DVANTAGE - PPO) Nick Moreira [id number] Nick Moreira Notes Date Note Type Note [...] stones or renal masses Rm Mas MD [address] [facility],[address], [place], [address], [place] [facility] 01/24/2024 22:41:13
--- OUTSIDE RECORDS SUMMARY | 2024-02-20 18:12 | XMS_ITS | Continuity of Care Document ---
Author Organization [facility], [facility] Address [address] [place] [address] Care Team Providers Care Mobile Manager Name Role Phone DOMINICK WHITMAN Primary [...] Details Recorded Time 4 Bladder Scan completed [facility] 01/08/2024 12:21:45 4 [place] - UroCuff completed [facility] 01/08/2024 12:23:07 4 Bladder Scan completed Rm Mas MD [address] [place] [address],[address] [place] [address], [address], [facility] 01/02/2024 12:04:36 4 Blood Draw/CHANGE ATTENDANT/PSA RESULTS completed Rm Mas MD [address] [place] [address],[address], [address], [facility] 01/02/2024 12:04:41 4 CHANGE ATTENDANT/blood draw completed Rm Mas MD [address] [place] [address],[address], [address], [facility] 06/20/2023 10:46:28 4 Bladder Scan completed Rm Mas MD [address] [place] [address],[facility] [address], [place], [address], [facility] 06/20/2023 10:50:58 3 [facility] 11:35:14 2 Bladder Scan completed Charlie Jang [facility] 03/20/2022 10:16:14 2 CHANGE ATTENDANT/blood draw completed Rm Mas MD [address] [place] [address],[address], [address], [facility] 12/19/2021 16:59:44 2 Bladder Scan completed Rm Mas MD [address] [place] [address],[address], [address], [facility] 12/19/2021 16:59:39 7 Colonoscopy completed Rm Mas MD [address] [place] [address],[address], [place], [address], [facility] 12/19/2021 16:58:49 procedure on nose completed Rm Mas MD [address] [place] [address],[address], [place], [address], [facility] 12/19/2021 16:58:21 Hernia Repair completed Rm Mas MD [address] [place] [address],[address] [facility], [place], [address], [facility] 12/19/2021 16:58:30 Imaging Results None recorded. Procedure Notes None recorded. Medical Equipment None Reported. Allergies Allergen ID Allergen Name Allergen Category Reaction Reaction Severity Criticality Documentation Date Start Date Code Code System Note Provider Name and Address Organization Details Recorded Time 974274 Substance with sulfonami de structure and antibacte rial mechanism of action (substanc e) medicatio n Not available Not available Not available 12/19/2021 28527 8003 SNOMED Rm Mas MD [address] [place] [address],[address] [place] [address], [phone], [facility] 2 16:55:44 661953 amoxicill in medicatio n Not available Not available Not available 12/19/2021 723 RxNorm Rm Mas MD [address] [place] [address],[address] [place] [address], [address], [facility] 2 16:55:49 314720 erythromy vanda medicatio n Not available Not available Not available 12/19/2021 4053 RxNorm Rm Mas MD [address] [place], [place] [address] [place] [address], [address], [facility] 2 16:55:54 411214 house dust allergeni c extract environme nt,medica tion Not available Not available Not available 12/19/2021 96404 9 RxNorm Rm Mas MD [address] [place] [address],[address] [place] [address], [address], [facility] 2 16:56:12 227772 house dust mite environme nt Not available Not available Not available 12/19/2021 Rm Mas MD [address] [place] [address],[address] [place] [address], [address], [facility] 2 16:56:17 912372 Flomax medicatio n Not available Not available Not available 12/19/2021 53261 3 RxNorm Rm Mas MD [address] [place] [address],[address] [place] [address], [phone], [facility] 2 16:56:23 397203 peanut allergeni c extract food,medi cation Not available Not available Not available 12/19/2021 83423 8 RxNorm Rm Mas MD [address] [place] [address],[address] [place] [address], [phone], [facility] 2 [...] Smoking Status Former Smoker Rm Mas MD [address] [place] [address],[address], [place], [address], [facility] 12/19/2021 16:58:04 [...] adjuvanted, trivalent, PF 04/25/2017 completed Kortney reeder [facility] 04/04/2023 08:55:35 Influenza, adjuvanted, trivalent, PF 01/04/2018 completed Kortney Allar null, [facility] 04/04/2023 08:55:35 zoster recombinant 12/19/2019 completed Kortney Al lar null, [facility] 04/04/2023 08:55:35 zoster recombinant 03/11/2020 completed Kortney Al lar null, [facility] 04/04/2023 08:55:35 Influenza, adjuvanted, quadrivalent, PF 02/05/2020 completed Kortney Allar null, [facility] 04/04/2023 08:55:35 Influenza, adjuvanted, quadrivalent, PF 03/15/2021 completed Kortney Allar null, [facility] 04/04/2023 08:55:35 COVID-19, mRNA, LNP-S, PF, 100 mcg/0.5mL dose or 50 mcg/0.25mL dose 11/29/2021 completed Kortney Allar null, [facility] 04/04/2023 08:55:35 COVID-19, mRNA, LNP-S, PF, 30 mcg/0.3 mL dose 05/18/2020 completed Kortney Allar null, [facility] 04/04/2023 08:55:35 COVID-19, mRNA, LNP-S, PF, 30 mcg/0.3 mL dose 06/08/2020 completed Kortney Allar null, [facility] 04/04/2023 08:55:35 COVID-19, mRNA, LNP-S, PF, 30 mcg/0.3 mL dose 03/23/2021 completed Kortney Allar null, [facility] 04/04/2023 08:55:35 Tdap 01/11/2011 completed Kortney Allar null, [facility] 04/04/2023 08:55:35 Tdap 03/15/2021 completed Kortney Allar null, [facility] 04/04/2023 08:55:35 zoster live 03/03/2015 completed Kortney Allar null, [facility] 04/04/2023 08:55:35 Influenza, high-dose, trivalent, PF 12/24/2013 completed Kortney Allar null, [facility] 04/04/2023 08:55:35 Influenza, high-dose, trivalent, PF 01/12/2015 completed Kortney Allar null, [facility] 04/04/2023 08:55:35 Influenza, high-dose, trivalent, PF 01/18/2016 completed Kortney Allar null, [facility] 04/04/2023 08:55:35 Influenza, split virus, trivalent, preservative 01/07/2013 completed Kortney Allar null, [facility] 04/04/2023 08:55:35 Influenza, split virus, trivalent, preservative 01/11/2011 completed Kortney Allar null, [facility] 04/04/2023 08:55:35 Influenza, split virus, trivalent, preservative 01/12/2009 completed Kortney Allar null, [facility] 04/04/2023 08:55:35 Influenza, split virus, trivalent, preservative 03/23/2012 completed Kortney Allar null, [facility] 04/04/2023 08:55:35 Td (adult), 5 Lf tetanus toxoid, preservative free, adsorbed 02/02/2006 completed Kortney Allar null, [facility] 04/04/2023 08:55:35 Influenza, split virus, quadrivalent, PF 02/18/2019 completed Kortney Allar null, [facility] 04/04/2023 08:55:35 Hep A-Hep B 10/03/2018 completed Kortney Allar null, [facility] 04/04/2023 08:55:35 Hep A-Hep B 03/03/2021 completed Kortney Allar null, [facility] 04/04/2023 08:55:35 Hep A-Hep B 04/02/2020 completed Kortney Allar null, [facility] 04/04/2023 08:55:35 Influenza, adjuvanted, quadrivalent, PF 03/13/2022 completed Kortney Allar null, [facility] 04/04/2023 08:55:42 Pneumococcal conjugate PCV20, polysaccharide [id number] conjugate, adjuvant, PF 05/18/2022 completed Kortney Allar null, [facility] 04/04/2023 08:55:51 Influenza, high-dose, quadrivalent, PF 03/22/2023 completed Rm Mas MD [address] [place] [address],[address], [address], [facility] 01/02/2024 12:02:22 RSV, bivalent, protein subunit RSVpreF, diluent reconstituted, 0.5 mL, PF 05/23/2023 completed Rm Mas MD [address] [place] [address], [address], [facility] 01/02/2024 12:02:22 Pneumococcal conjugate PCV 13 07/23/2014 completed Rm Mas MD [address] [place] [address], [address], [facility] 12/19/2021 16:55:31 pneumococcal polysaccharide PPV23 12/17/2012 completed Rm Mas MD [address] [place] [address], [address], [facility] 12/19/2021 16:55:31 Past Encounters Encounter ID Performer Location Encounter Start Date Encounter Closed Date Diagnosis/Indication Diagnosis SNOMED-CT Code Diagnosis ICD10 Code [id number] MD [facility]GA [facility] [address] [place] [address] 01/02/2024 11:43:10 01/07/2024 12:28:43 Lower urinary tract symptoms due to benign prostatic hypertrophy 5515984938 9101 N40.1 Erectile dysfunction 860 808178 F52.21 [id number] Luis [facility] [address] [place] [address] 01/08/2024 11:53:44 01/09/2024 12:20:42 Lower urinary tract symptoms due to benign prostatic hypertrophy 1431053175 9101 N40.1 Health Concerns Section Related Observation LastModified by Organization Detai ls LastModified Time None Recorded Concern Status LastModified by Organization Details LastModified Time None Recorded Payers Encounter Date Sequence Insurance Name Policy Number Policy Henry Covered Member ID Henry Member ID Guarantor Name 01/08/2024 1 [employer] (MEDICARE REPLACEMENT/A DVANTAGE - PPO) Nick [id number] Nikc Moreira
--- OUTSIDE RECORDS SUMMARY | 2024-02-20 18:12 | XMS_ITS | Continuity of Care Document ---
Author Organization [facility], [facility] Address [address] [place] [address] Care Team Providers Care Entomology Professor Name Role Phone DOMINICK WHITMAN Primary Care Provider [phone] Assessment No assessment recorded. Plan of Treatment Reminders Order Date Submit Date Provider Last Modified By Organization Details Last Modified Time Details Appointments ESTABLISH ED 2023 11:00A M Rm Mas MD Not available Not available Not available PROCEDURE 20 2023 11:00A M [facility] C_RM_B Not available Not available Not available Lab PSA, serum or plasma 2023 024 [facility], [address], [place], [address], 01/02/2024 12:20:03 Referral None recorded. Procedures electromy [...] PSA 0.84ng /mL 0-4.0 NG/mL Not Available [facility] [address], [place], [address], 01/01/2024 11:38:42 Result Notes None recorded. Procedures Surgical History Date Name Laterality Status Provider Name and Address Organization Details Recorded Time 4 [facility] 01/08/2024 12:21:45 4 [place] - UroCuff completed [facility]loan-Shweta ero [facility] 01/08/2024 12:23:07 4 Bladder Scan completed Rm Mas MD [address] [place] [address],[address], [place], [address], [facility] 01/02/2024 12:04:36 4 Blood Draw/MEDICAL ESTHETICIAN/PSA RESULTS completed Rm Mas MD [address] [place] [address],[address], [place], [address], [facility] 01/02/2024 12:04:41 4 MEDICAL ESTHETICIAN/blood draw completed Rm Mas MD [address] [place] [address],[address] [place] [address], [address], [facility] 06/20/2023 10:46:28 4 Bladder Scan completed Rm Mas MD [address] [place] [address],[facility] [address], [place], [address], [facility] 06/20/2023 10:50:58 3 Bladder Scan completed Charlie Jang [facility] 07/10/2022 11:35:14 2 Bladder Scan completed Charlie Jang [facility] 03/20/2022 10:16:14 2 MEDICAL ESTHETICIAN/blood draw completed Rm Mas MD [address] [place] [address],[address], [place], [address], [facility] 12/19/2021 16:59:44 2 Bladder Scan completed Rm Mas MD [address] [place] [address],[address], [place], [address], [facility] 12/19/2021 16:59:39 7 Colonoscopy completed Rm Mas MD [address] [place] [address],[address], [place], [address], [facility] 12/19/2021 16:58:49 procedure on nose completed Rm Mas MD [address] [place] [address],[address], [place], [address], [facility] 12/19/2021 16:58:21 Hernia Repair completed Rm Mas MD [address] [place] [address],[address], [place], [address], [facility] 12/19/2021 16:58:30 Imaging Results None recorded. Procedure Notes None recorded. Medical Equipment None Reported. Allergies Allergen ID Allergen Name Allergen Category Reaction Reaction Severity Criticality Documentation Date Start Date Code Code System Note Provider Name and Address Organization Details Recorded Time 733848 Substance with sulfonami de structure and antibacte rial mechanism of action (substanc e) medicatio n Not available Not available Not available 12/19/2021 80949 8003 SNOMED Rm Mas MD [address] [place] [address],[address], [place], [address], [facility] 2 16:55:44 676545 amoxicill in medicatio n Not available Not available Not available 12/19/2021 723 RxNorm Rm Mas MD [address] [place] [address],[address], [place], [address], [facility] 2 16:55:49 381288 erythromy vanda medicatio n Not available Not available Not available 12/19/2021 4053 RxNorm Rm Mas MD [address] [place] [address],[address], [place], [address], [facility] 2 16:55:54 259434 house dust allergeni c extract environme nt,medica tion Not available Not available Not available 12/19/2021 48176 9 RxNorm Rm Mas MD [address] [place] [address],[address], [place], [address], [facility] 2 16:56:12 741078 house dust mite environme nt Not available Not available Not available 12/19/2021 Rm Mas MD [address] [place] [address], [address], [facility] 2 16:56:17 355110 Flomax medicatio n Not available Not available Not available 12/19/2021 78915 3 RxNorm Rm Mas MD [address] [place] [address], [facility] 2 16:56:23 788095 peanut allergeni c extract food,medi cation Not available Not available Not available 12/19/2021 39042 8 RxNorandi Mas MD [address] [place] [address], [facility] 2 16:56:31 Medications Name Sig [...] Updated DateTime 01/02/2024 182.88 cm 24.4 kg/m2 00857.63 g Rm Mas MD [address] [facility],[address], [place], [address], [facility] 01/02/2024 12:02:16 Social History Question Answer Notes LastModified by Organizat ion Details LastModified Time Tobacco Smoking Status Former Smoker Rm Mas MD [address] [facility],[address], [place], [address], [facility] 12/19/2021 16:58:04 What Is Your [...] trivalent, PF 04/25/2017 completed Kortney Allar null, [facility] 04/04/2023 08:55:35 Influenza, adjuvanted, trivalent, PF 01/04/2018 completed Kortney Allar null, [facility] 04/04/2023 08:55:35 zoster recombinant 12/19/2019 completed Kortney Al lar null, [facility] 04/04/2023 08:55:35 zoster recombinant 03/11/2020 completed Kortney Al lar null, [facility] 04/04/2023 08:55:35 Influenza, adjuvanted, quadrivalent, PF 02/05/2020 completed Kortney Allar null, [facility] 04/04/2023 08:55:35 Influenza, adjuvanted, quadrivalent, PF [...] PF 12/24/2013 completed Kortney Allar null, [facility] 04/04/2023 08:55:35 Influenza, high-dose, trivalent, PF 01/12/2015 completed Kortney Allar null, [facility] 04/04/2023 08:55:35 Influenza, high-dose, trivalent, PF 01/18/2016 completed Kortney Allar null, [facility] 04/04/2023 08:55:35 Influenza, split virus, trivalent, preservative 01/07/2013 completed Kortney Allar null, [facility] 04/04/2023 08:55:35 Influenza, split virus, trivalent, preservative 01/11/2011 completed Kortney Allar null, [facility] 04/04/2023 08:55:35 Influenza, split virus, trivalent, preservative 01/12/2009 completed Kortney Allar null, [facility] 04/04/2023 08:55:35 Influenza, split virus, trivalent, preservative 03/23/2012 completed Kortney Allar null, [facility] 04/04/2023 08:55:35 Td (adult), 5 Lf tetanus toxoid, preservative free, adsorbed 02/02/2006 completed Kortney Allar null, [facility] 04/04/2023 08:55:35 Influenza, split virus, quadrivalent, PF 02/18/2019 completed Kortney Allar null, [facility] 04/04/2023 08:55:35 Hep A-Hep B 10/03/2018 completed Kortney Allar null, [facility] 04/04/2023 08:55:35 Hep A-Hep B 03/03/2021 completed Kortney Allar null, [facility] 04/04/2023 08:55:35 Hep A-Hep B 04/02/2020 completed Kortney Allar null, [facility] 04/04/2023 08:55:35 Influenza, adjuvanted, quadrivalent, PF 03/13/2022 completed Kortney Allar null, [facility] 04/04/2023 08:55:42 Pneumococcal conjugate PCV20, polysaccharide [id number] conjugate, adjuvant, PF 05/18/2022 completed Kortney Allar null, [facility] 04/04/2023 08:55:51 Influenza, high-dose, quadrivalent, PF 03/22/2023 completed Rm Mas MD [address] [place] [address],[address], [address], [facility] 01/02/2024 12:02:22 RSV, bivalent, protein subunit RSVpreF, diluent reconstituted, 0.5 mL, PF 05/23/2023 completed Rm Mas MD [address] [place] [address],[address], [place], [address], [facility] 01/02/2024 12:02:22 Pneumococcal conjugate PCV 13 07/23/2014 completed Rm Mas MD [address] [facility] [address], [place], [address], [facility] 12/19/2021 16:55:31 pneumococcal polysaccharide PPV23 12/17/2012 completed Rm Mas MD [address] [facility] [address], [place], [address], [facility] 12/19/2021 16:55:31 Past Encounters Encounter ID Performer Location Encounter Start Date Encounter Closed Date Diagnosis/Indication Diagnosis SNOMED-CT Code Diagnosis ICD10 Code [id number] Rm Mas MD [facility] [address] [place] [address] 01/02/2024 11:43:10 01/07/2024 12:28:43 Lower urinary tract symptoms due to benign prostatic hypertrophy 1709325942 9101 N40.1 Erectile dysfunction 860 514010 F52.21 Health Concerns Section Related Observation LastModified by Organization Detai ls LastModified Time None Recorded Concern Status LastModified by Organization Details LastModified Time None Recorded Payers Encounter Date Sequence Insurance Name Policy Number Policy Henry Covered Member ID Henry Member ID Guarantor Name 01/02/2024 1 [employer] (MEDICARE REPLACEMENT/A DVANTAGE - PPO) Nick Moreira [id number] Nick Moreira Notes Date Note Type Note [...] stones or renal masses Rm Mas MD [address] [facility],[address], [place], [address], [place] [facility] 01/03/2024 22:33:39
== END 2024-02-14 05:10 | disposition home or self-care (01) ==
LOC: AMB 02-20 18:09
PROVIDERS: PCP Family Medicine; Visit Provider Family Medicine
DX: S06.5XAA Traumatic subdural hemorrhage with loss of consciousness status unknown, initial encounter (principal)
CPT/HCPCS: A0425; A0434

== ENCOUNTER 2024-07-11 08:15 | Outpatient (RCR) | payer MEDICARE, BC, SELFPAY | END 2024-08-18 11:01 | disposition home or self-care (01) | PROVIDERS: PCP Family Medicine; Visit Provider Family Medicine | DX: R26.81 Unsteadiness on feet (principal); R53.81 Other malaise; Z91.89 Other specified personal risk factors, not elsewhere classified; Z51.89 Encounter for other specified aftercare | CPT/HCPCS: 97110; 97112; 97161; 97165; 97535 ==